=== PATIENT | female | born 1990 | race Caucasian/White ===

== ENCOUNTER → 2019-12-14 08:29 | Outpatient (CLI) | payer OTHER, SELFPAY ==
[2019-12-14 08:58] LABS: Hematocrit 41.8 % (36-46); Hemoglobin 14.4 g/dL (12.0-16.0); Mean Corpuscular HGB Conc 34.5 % (30-36); Mean Corpuscular Hemoglobin 31.3 PG (26-34); Mean Corpuscular Volume 90.7 fL (80-100); Platelet Count 224 X10^3/uL (150-400); Red Cell Distribution Width 12.7 % (11.6-14.8); White Blood Cell Count 4.5 X10^3/uL (4.5-11.0)
[2019-12-14 09:15] LABS: Alanine Aminotransferase 21 IU/L (<35); Albumin 4.6 g/dL (3.5-5.0); Albumin Globulin Ratio 1.4 (1.0-2.8); Alkaline Phosphatase 81 U/L (38-126); Aspartate Aminotransferase 36 IU/L (14-36); BUN Creatinine Ratio 15.8 (6-22); Bilirubin Total 0.7 mg/dL (0.2-1.3); Blood Urea Nitrogen 9 mg/dL (7-17); Calcium 9.6 mg/dL (8.4-10.2); Carbon Dioxide 26 mmol/L (22-32); Chloride 102 mmol/L (98-107); Cholesterol 168 mg/dL (140-199); Estimated Glomerular Filt Rate > 60.0 mL/min (>60); Globulin 3.4 g/dL (1.7-4.1); Glucose 90 mg/dL (70-100); HDL Cholesterol 54 mg/dL (40-60); HEMOLYSIS < 15 (0-50); LDL Cholesterol Calculated 97 mg/dL (<100); Potassium 4.2 mmol/L (3.4-5.1); Sodium 136 mmol/L (137-145); Triglycerides 84 mg/dL (35-150)
[2019-12-14 10:16] LABS: TSH w/ Reflex to FT4 3.65 uIU/mL (0.47-4.68)
[2019-12-14 16:30] LABS: Rubella Antibody IgG 36.9 IU/mL (>15)
[2019-12-15 08:36] LABS: Varicella IgG Antibody 726 index (Immune >165)
== END ==
PROVIDERS: Obstetrics & Gynecology; PCP Nurse Practitioner Family; Referring Provider Nurse Practitioner Family; Visit Provider Nurse Practitioner Family
DX: Z00.00 Encounter for general adult medical examination without abnormal findings (principal); Z13.6 Encounter for screening for cardiovascular disorders; N93.9 Abnormal uterine and vaginal bleeding, unspecified
CPT/HCPCS: 36415; 80053; 80061; 84443; 85027; 86762; 86787

== ENCOUNTER → 2020-02-16 10:29 | Outpatient (CLI) | payer OTHER, SELFPAY | PROVIDERS: PCP Nurse Practitioner Family; Referring Provider Obstetrics & Gynecology; Visit Provider Obstetrics & Gynecology | DX: R53.83 Other fatigue (principal) | CPT/HCPCS: 36415; 84439 ==

== ENCOUNTER → 2020-02-25 10:09 | Outpatient (CLI) | payer OTHER, SELFPAY ==
[2020-02-25 10:30] LABS: RBC Urine None Seen (0-5/HPF); WBC Urine None Seen (0-5/HPF)
[2020-02-25 11:56] LABS: Hematocrit 42.4 % (36-46); Hemoglobin 14.1 g/dL (12.0-16.0); Mean Corpuscular HGB Conc 33.2 % (30-36); Mean Corpuscular Hemoglobin 30.3 PG (26-34); Mean Corpuscular Volume 91.2 fL (80-100); Platelet Count 228 X10^3/uL (150-400); Red Blood Cell Count 4.65 X10^6/uL (4.0-5.2); Red Cell Distribution Width 12.6 % (11.6-14.8); White Blood Cell Count 4.9 X10^3/uL (4.5-11.0)
[2020-02-25 11:59] LABS: Appearance Urine UA CLEAR; Bilirubin Urine UA NEGATIVE (NEGATIVE); Color Urine UA YELLOW; Glucose Urine UA NEGATIVE (Negative); Ketones Urine UA NEGATIVE (NEGATIVE); Leukocyte Esterase Urine UA NEGATIVE (NEGATIVE); Nitrite Urine UA NEGATIVE (Negative); Occult Blood Urine UA NEGATIVE (Negative); Protein Urine UA NEGATIVE (Negative); Specific Gravity Urine UA <=1.005 (1.000-1.035); Urobilinogen Urine UA 0.2 E.U./dL (0.2)
[2020-02-25 12:02] LABS: Pregnancy Test Urine Negative (Negative)
[2020-02-25 12:06] LABS: Bacteria Urine Moderate (10-30); Squamous Epithelial Cell Urine 5-10 /HPF (0-5/HPF)
[2020-02-25 12:07] LABS: Culture Indicated Urine Cult Not Indicated
[2020-02-25 12:36] LABS: HEMOLYSIS < 15 (0-50); Iron 97 ug/dL (37-170)
[2020-02-25 12:39] LABS: BUN Creatinine Ratio 19.6 (6-22); Blood Urea Nitrogen 11 mg/dL (7-17); Calcium 9.5 mg/dL (8.4-10.2); Carbon Dioxide 27 mmol/L (22-32); Chloride 102 mmol/L (98-107); Estimated Glomerular Filt Rate > 60.0 mL/min (>60); Glucose 104 mg/dL (70-100); HEMOLYSIS < 15 (0-50); Potassium 4.3 mmol/L (3.4-5.1); Sodium 137 mmol/L (137-145)
[2020-02-25 12:48] LABS: Percent Iron Saturation 26 % (15-50); Total Iron Binding Capacity 367 ug/dL (265-497); Transferrin 288 mg/dL (206-381)
[2020-02-25 13:15] LABS: Ferritin 16 ng/mL (6-137)
[2020-02-25 13:46] LABS: Folate > 20.0 ng/mL (2.76-20.0); Vitamin B12 731 pg/mL (239-931)
[2020-03-09 11:36] LABS: Urea Breath Test >18YRS Negative
== END ==
PROVIDERS: PCP Nurse Practitioner Family; Referring Provider Nurse Practitioner Family; Visit Provider Nurse Practitioner Family
DX: R10.9 Unspecified abdominal pain (principal); R53.83 Other fatigue; K21.9 Gastro-esophageal reflux disease without esophagitis
CPT/HCPCS: 36415; 80048; 81001; 81025; 82607; 82728; 82746; 83013; 83540; 83550; 85027

== ENCOUNTER → 2020-03-02 10:42 | Outpatient (CLI) | payer OTHER, SELFPAY ==
--- NOTE | 2020-03-02 10:43 | DI.US.S_ITS ---
PROCEDURE: US ABDOMEN COMPLETE INDICATIONS: LEFT LOWER QUADRANT PAIN TECHNIQUE: Real-time scanning was performed of the abdominal and retroperitoneal organs, with image documentation. COMPARISON: None. FINDINGS: Liver: Liver is normal in size and homogeneous in echotexture. Gallbladder: No findings of gallstones or sludge are seen. The gallbladder wall is not thickened, measuring 3 mm or less. No specific pericholecystic fluid is seen. The sonographic Salas sign is negative. Biliary ducts: Intrahepatic bile ducts are non-dilated. Extrahepatic bile duct caliber measures 5 mm. Normal is 6-7 mm or less in diameter, or 10 mm or less post-cholecystectomy. Pancreas: Visualized portions of the pancreas are sonographically normal. Spleen: Spleen is normal in size and homogeneous in echotexture. Kidneys: Right kidney measures 10.1 cm long; left kidney measures 8.6 cm long. 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 Left kidney is small in size. No nephrolithiasis. No solid masses. No mildred hydronephrosis is seen, although bilateral extrarenal pelvis can be seen. Aorta: Visualized aorta is normal in caliber at less than 3 cm. Iliacs: Proximal common iliac arteries are normal in caliber at less than 2.5 cm. IVC: Intrahepatic inferior vena cava is patent. Miscellaneous: No free abdominal fluid. IMPRESSION: No significant abnormality is seen to explain the patient's presenting history. In this female patient with left lower quadrant pain, please consider a follow-up pelvic ultrasound for further evaluation, if clinically appropriate. The left kidney is small in size and is malrotated and ectopic. Bilateral extrarenal pelvis is seen, without mildred hydronephrosis. Dictated by: Bright Pop M.D. on 03/02/2020 at 13:09 Approved by: Bright Pop M.D. on 03/02/2020 at 13:11
== END ==
PROVIDERS: PCP Nurse Practitioner Family; Referring Provider Nurse Practitioner Family; Visit Provider Nurse Practitioner Family
DX: R10.32 Left lower quadrant pain (principal); R53.83 Other fatigue; Q63.2 Ectopic kidney
CPT/HCPCS: 76700

== ENCOUNTER → 2020-03-28 09:45 | Outpatient (CLI) | payer OTHER, SELFPAY ==
--- NOTE | 2020-03-28 09:46 | DI.US.S_ITS ---
PROCEDURE: US PELVIC COMPLETE INDICATIONS: pelvic pain TECHNIQUE: Real-time scanning was performed of the pelvic organs, with image documentation. Additional endovaginal scanning was necessary due to incomplete visualization of the adnexal and endometrial structures by transabdominal scanning. COMPARISON: None. FINDINGS: Transabdominal scanning: Limited scanning through the kidneys shows no hydronephrosis. No pathologic free abdominal or pelvic fluid. Endovaginal scanning: Uterus: Uterus is normal in size at 8.8 x 3.6 x 4.5 cm. The endometrium measures 10 mm in combined thickness. Ovaries: The right ovary measures 2.2 x 1.3 x 2.4 cm. The left ovary measures 3.2 x 1.5 x 1.8 cm. The ovaries have a normal sonographic appearance. No adnexal masses are seen. Normal appearing arterial waveforms are confirmed to each ovary. IMPRESSION: Unremarkable pelvic ultrasound, without findings of ovarian torsion or other significant pelvic abnormality. Dictated by: Bright Pop M.D. on 03/28/2020 at 10:10 Approved by: Bright Pop M.D. on 03/28/2020 at 10:13
== END ==
PROVIDERS: PCP Nurse Practitioner Family; Referring Provider Nurse Practitioner Family; Visit Provider Nurse Practitioner Family
DX: R10.2 Pelvic and perineal pain (principal)
CPT/HCPCS: 76830; 76856

== ENCOUNTER → 2020-06-14 12:19 | Outpatient (CLI) | payer OTHER, SELFPAY | PROVIDERS: PCP Nurse Practitioner Family; Visit Provider Obstetrics & Gynecology | DX: Z11.3 Encounter for screening for infections with a predominantly sexual mode of transmission (principal); Z3A.09 9 weeks gestation of pregnancy | CPT/HCPCS: 87491; 87591 ==

== ENCOUNTER → 2020-06-16 12:10 | Outpatient (CLI) | payer OTHER, SELFPAY ==
[2020-06-16 12:52] LABS: Add Manual Diff / Slide Review NO; Basophils Absolute Auto 0 /uL (0-100); Basophils Percent Auto 0.5 % (0-2); Eosinophils Absolute Auto 0 /uL (0-450); Eosinophils Percent Auto 0.3 % (2-4); Hematocrit 37.7 % (36-46); Hemoglobin 12.6 g/dL (12.0-16.0); Lymphocytes Absolute Auto 1600 /uL (1100-4500); Lymphocytes Percent Auto 15.6 % (25-40); Mean Corpuscular HGB Conc 33.6 % (30-36); Mean Corpuscular Hemoglobin 30.5 PG (26-34); Mean Corpuscular Volume 90.9 fL (80-100); Monocytes Absolute Auto 600 /uL (0-900); Monocytes Percent Auto 5.4 % (3-14); Neutrophils Absolute Auto 8200 /uL (1500-7000); Neutrophils Percent Auto 78.2 % (50-75); Platelet Count 233 X10^3/uL (150-400); Red Blood Cell Count 4.15 X10^6/uL (4.0-5.2); Red Cell Distribution Width 12.9 % (11.6-14.8); White Blood Cell Count 10.4 X10^3/uL (4.5-11.0)
[2020-06-16 13:11] LABS: Appearance Urine UA CLEAR; Bilirubin Urine UA NEGATIVE (NEGATIVE); Color Urine UA YELLOW; Glucose Urine UA NEGATIVE (Negative); Ketones Urine UA NEGATIVE (NEGATIVE); Leukocyte Esterase Urine UA NEGATIVE (NEGATIVE); Nitrite Urine UA NEGATIVE (Negative); Occult Blood Urine UA NEGATIVE (Negative); Protein Urine UA NEGATIVE (Negative); Specific Gravity Urine UA <=1.005 (1.000-1.035); Urobilinogen Urine UA 0.2 E.U./dL (0.2)
[2020-06-16 13:58] LABS: Hepatitis B Surface Antigen NEGATIVE s/c (NEGATIVE); Rubella Antibody IgG 31.3 IU/mL (>15)
[2020-06-16 14:15] LABS: HIV 1 & 2 Ab/Ag 4th Gen Combo NEGATIVE (NEGATIVE); Hep C Virus Ab w/Reflex Quant NEGATIVE s/c (NEGATIVE)
[2020-06-17 06:36] LABS: RPR Screen Non Reactive (Non Reactive)
[2020-06-17 15:51] LABS: Varicella IgG Antibody 654 index (Immune >165)
== END ==
PROVIDERS: PCP Nurse Practitioner Family; Referring Provider Obstetrics & Gynecology; Visit Provider Obstetrics & Gynecology
DX: Z34.01 Encounter for supervision of normal first pregnancy, first trimester (principal)
CPT/HCPCS: 36415; 80055; 81003; 86787; 86803; 86850; 86900; 86901; 87086; 87389

== ENCOUNTER → 2020-08-29 08:58 | Outpatient (CLI) | payer OTHER, SELFPAY | PROVIDERS: PCP Nurse Practitioner Family; Referring Provider Obstetrics & Gynecology; Visit Provider Obstetrics & Gynecology | DX: Z34.02 Encounter for supervision of normal first pregnancy, second trimester (principal); Z3A.19 19 weeks gestation of pregnancy; Z53.8 Procedure and treatment not carried out for other reasons ==

== ENCOUNTER → 2020-09-05 09:19 | Outpatient (CLI) | payer OTHER, SELFPAY ==
--- NOTE | 2020-09-05 09:22 | DI.US.S_ITS ---
PROCEDURE: US OB >= 14 WEEKS FETUS INDICATIONS: ANATOMY OUTSIDE/PRIOR DATING DATA: Last menstrual period (LMP): 04/11/20. LMP-based estimated date of delivery (HARRY): 01/16/21 . First dating scan (date and location): 06/14/[address] Zhao . Estimated date of delivery (HARRY) from first dating scan: 01/16/21, by Dr. Zhao . TECHNIQUE: Real-time scanning was performed of the fetus, with image documentation and biometric measurements. Endovaginal scanning: Not needed COMPARISON: [facility], , OB <= 14 WEEKS FETUS, 06/14/2020, 12:20. FINDINGS: General: A single living intrauterine gestation is present. Presentation: Variable. Placenta: Placental position is anterior , without previa. Amniotic fluid index: 16.4 cm, normal range is 5-24 cm. heart rate: 155 beats per minute. Maternal cervical canal: 6.7 cm long. Normal lower limit is 2.5 cm. biometrics: Biparietal diameter: 4.7 cm, 20 weeks 2 days Head circumference: 17.8 cm, 20 weeks 2 days Abdominal circumference: 17.2 cm, 22 weeks 1 day Femur length: 3.4 cm, 20 weeks 4 days Estimated gestational age from initial scan: 21 weeks 0 days Composite gestational age from present scan: 20 weeks 6 days Estimated weight and percentile: 412 g, 60 a percentile Measurement variability for biometric dating: +/- 7 days from 14 weeks to 15 weeks 6 days gestation, +/- 10 days from 16 weeks to 21 weeks 6 days gestation, +/- 2 weeks from 22 weeks to 27 weeks 6 days gestation, +/- 3 weeks for 28 weeks gestation or later. weight reference: 4500 g or EFW >90/95% is considered macrosomia or large for gestational age. EFW <10% is small for gestational age. EFW 5% or less is considered intra-uterine growth restriction. Anatomic survey: Neuro: Ventricles are non-dilated at less than 10 mm. Cisterna magna is normal at 3-11 mm. Cerebellum is normal in size and morphology. Nuchal skin fold: Normal at less than 6 mm between 14-21 weeks gestational age. Face: Nose and lips, facial profile are normal. Spine: No evidence for spina bifida. Heart: 4-chambered heart is present, with normal ventricular outflow tracts. Diaphragm: Diaphragm is intact. Stomach: Left-sided stomach is present. Kidneys: No hydronephrosis. Normal is less than 5 mm in 2nd trimester, less than 7 mm in 3rd trimester. Cord: 3-vessel cord has orthotopic insertion. Bladder: Normal in size. Extremities: All 4 extremities identified. IMPRESSION: Single living intrauterine gestation with current gestational age estimated to be 20 weeks 6 days with appropriate interval growth from 1st OB ultrasound. The current estimated weight is 60 percentile for gestational age. Delivery date is projected to be centered on 01/16/21, +/-5 days. Dictated by: Andrew Boss M.D. on 09/05/2020 at 14:07 Approved by: Andrew Boss M.D. on 09/05/2020 at 14:12
== END ==
PROVIDERS: PCP Nurse Practitioner Family; Referring Provider Obstetrics & Gynecology; Visit Provider Obstetrics & Gynecology
DX: Z36.89 Encounter for other specified antenatal screening (principal); Z3A.20 20 weeks gestation of pregnancy
CPT/HCPCS: 76811

== ENCOUNTER 2020-10-18 11:59 | Outpatient (CLI) | payer OTHER, SELFPAY | END 2020-10-18 12:50 | disposition home or self-care (01) | LOC: LABOR 12:02 → OB 10-20 07:55 | PROVIDERS: PCP Nurse Practitioner Family; Referring Provider Obstetrics & Gynecology; Visit Provider Obstetrics & Gynecology | DX: O26.892 Other specified pregnancy related conditions, second trimester (principal); W19.XXXA Unspecified fall, initial encounter; Z3A.27 27 weeks gestation of pregnancy | CPT/HCPCS: 59025; G0378; G0379 ==

== ENCOUNTER → 2020-10-19 12:00 | Outpatient (CLI) | payer OTHER, SELFPAY ==
[2020-10-19 14:20] LABS: Hematocrit 31.2 % (36-46); Hemoglobin 10.8 g/dL (12.0-16.0)
[2020-10-19 14:50] LABS: GTT (PREG) 1 Hour PP 50gm Dose 99 mg/dL (76-139)
== END ==
PROVIDERS: PCP Nurse Practitioner Family; Referring Provider Obstetrics & Gynecology; Visit Provider Obstetrics & Gynecology
DX: Z34.02 Encounter for supervision of normal first pregnancy, second trimester (principal); Z3A.26 26 weeks gestation of pregnancy
CPT/HCPCS: 36415; 82950; 85014; 85018; 86850

== ENCOUNTER → 2020-12-22 15:48 | Outpatient (CLI) | payer OTHER, SELFPAY ==
[2020-12-23 12:46] LABS: Strep Grp B PCR NEG for Grp B Strep
== END ==
PROVIDERS: PCP Nurse Practitioner Family; Visit Provider Obstetrics & Gynecology
DX: Z34.03 Encounter for supervision of normal first pregnancy, third trimester (principal); Z3A.36 36 weeks gestation of pregnancy
CPT/HCPCS: 87653

== ENCOUNTER 2020-12-30 12:07 | Outpatient (CLI) | payer OTHER, SELFPAY ==
--- NOTE | 2020-12-30 12:49 | P.TNLD_ITS ---
Visit Information Visit Information Date of evaluation: 12/30/20 Primary OB Provider: Bhavani Zhao Reason for Evaluation: Yes non-stress test Comments/Additional reasons for admission: Patient is a @37+4 presenting for NST for decreased movement, no other obstetric symptoms or risk factors. Had 02/19 BPP in the office. [facility] Medical History (Updated 12/19/20 @ 08:56 by Niya Hinojosa DO) Abdominal pain Abnormal Pap smear of cervix (~2015) Bilateral inguinal hernia Cardiac arrhythmia Episode of syncope (09/2019) Exercise-induced asthma (2013) Fatigue (01/2020) GERD (gastroesophageal reflux disease) History of blood transfusion (~1989) Human papilloma virus Nasal swelling Palpitations Pelvic pain Scoliosis Vaginal spotting Surgical History (Updated 06/08/20 @ 14:12 by Padmini Santoyo, CASSIDY) Anesthesia History of rhinoplasty (~10/2018) Omphalocele Pectus excavatum (~01/2014) Pectus excavatum (~06/2015) S/P bilateral inguinal hernia repair Status post rhinoplasty (~12/2019) Family History (Updated 06/08/20 @ 12:51 by Padmini Santoyo, CASSIDY) Father Heavy smoker Hypertension Hyperlipidemia Mental health problem AA (alcohol abuse) Asperger syndrome Mother Autoimmune disease Hereditary malabsorption of folic acid Mixed connective tissue disease Sister Substance abuse Mental health problem AA (alcohol abuse) Borderline personality disorder Grandfather Hypertension Hyperlipidemia Congestive heart failure Grandmother Celiac disease Diabetes mellitus Brother Depression Substance abuse Asperger syndrome Grandmother No problems noted. Grandfather Myocardial infarction AA (alcohol abuse) Family/Other Liver cancer Problem related to lifestyle Social History marital status: household members: spouse lives independently: Yes pets and animals: No education level: college (BA : taking extra classes online - changing her career) current occupational exposures/hazards: No katheryn/bahai: Scientologist special katheryn needs: No Smoking Status: Never smoker second hand exposure: No alcohol intake: former (pre- : 1-2x/week) substance use type: does not use Evaluation Evaluation Baseline heart rate: 130 Variability: Moderate (11-25) monitor accelerations: Present Monitor Decelerations: Absent Category of Tracing: Reactive Status: Category l Diagnosis, Plan/Disposition Plan/Disposition Plan: Home with labor and antepartum precautions. OB Disposition: home
== END 2020-12-30 12:55 | disposition home or self-care (01) ==
LOC: OB 01-02 08:04
PROVIDERS: PCP Nurse Practitioner Family; Referring Provider Obstetrics & Gynecology; Visit Provider Obstetrics & Gynecology
DX: O36.8130 Decreased fetal movements, third trimester, not applicable or unspecified (principal); Z3A.37 37 weeks gestation of pregnancy
CPT/HCPCS: 59025; G0378; G0379

== ENCOUNTER 2021-01-05 15:05 | Outpatient (CLI) | payer OTHER, SELFPAY | END 2021-01-05 15:50 | disposition home or self-care (01) | LOC: OB 01-09 14:45 | PROVIDERS: PCP Nurse Practitioner Family; Referring Provider Obstetrics & Gynecology; Visit Provider Obstetrics & Gynecology | DX: O26.893 Other specified pregnancy related conditions, third trimester (principal); W18.30XA Fall on same level, unspecified, initial encounter; Z3A.38 38 weeks gestation of pregnancy | CPT/HCPCS: 59025; G0378; G0379 ==

== ENCOUNTER 2021-01-13 15:18 | Outpatient (CLI) | payer OTHER, SELFPAY | END 2021-01-13 16:05 | disposition home or self-care (01) | LOC: LABOR 15:48 → OB 01-17 07:35 | PROVIDERS: PCP Nurse Practitioner Family; Referring Provider Obstetrics & Gynecology; Visit Provider Obstetrics & Gynecology | DX: O48.0 Post-term pregnancy (principal); Z3A.40 40 weeks gestation of pregnancy | CPT/HCPCS: 59025; G0378; G0379 ==

== ENCOUNTER 2021-01-18 08:14 | Outpatient (CLI) | payer OTHER, SELFPAY ==
--- NOTE | 2021-01-18 08:50 | P.TNLD_ITS ---
Visit Information Visit Information Date of evaluation: 01/18/21 Primary OB Provider: Bhavani Zhao On-call OB Provider: Keerthi Santos Reason for Evaluation: Yes non-stress test non-stress test reason: other (Postdates) Vital Signs Vital Signs: Blood pressure 103/77, pulse of 82, temperature 36.6? [facility] Medical History (Updated 01/18/21 @ 08:52 by Keerthi Santos MD) Abdominal pain Abnormal Pap smear of cervix (~2015) Bilateral inguinal hernia Cardiac arrhythmia Episode of syncope (09/2019) Exercise-induced asthma (2013) Fatigue (01/2020) GERD (gastroesophageal reflux disease) History of blood transfusion (~1989) Human papilloma virus Nasal swelling Palpitations Pelvic pain Scoliosis Vaginal spotting Surgical History (Updated 06/08/20 @ 14:12 by Padmini Santoyo, RN) Anesthesia History of rhinoplasty (~10/2018) Omphalocele Pectus excavatum (~01/2014) Pectus excavatum (~06/2015) S/P bilateral inguinal hernia repair Status post rhinoplasty (~12/2019) Family History (Updated 06/08/20 @ 12:51 by Padmini Santoyo, RN) Father Heavy smoker Hypertension Hyperlipidemia Mental health problem AA (alcohol abuse) Asperger syndrome Mother Autoimmune disease Hereditary malabsorption of folic acid Mixed connective tissue disease Sister Substance abuse Mental health problem AA (alcohol abuse) Borderline personality disorder Grandfather Hypertension Hyperlipidemia Congestive heart failure Grandmother Celiac disease Diabetes mellitus Brother Depression Substance abuse Asperger syndrome Grandmother No problems noted. Grandfather Myocardial infarction AA (alcohol abuse) Family/Other Liver cancer Problem related to lifestyle Social History marital status: household members: spouse lives independently: Yes pets and animals: No education level: college (BA : taking extra classes online - changing her career) current occupational exposures/hazards: No katheryn/mu-ism: Worship special katheryn needs: No Smoking Status: Never smoker second hand exposure: No alcohol intake: former (pre- : 1-2x/week) substance use type: does not use Evaluation Evaluation Baseline heart rate: 120 Variability: Moderate (11-25) monitor accelerations: Present Monitor Decelerations: Absent Contraction Frequency (minutes): 7 Uterine Contraction Intensity: Mild Category of Tracing: Reactive Status: Category l Diagnosis, Plan/Disposition Final Diagnosis (1) Post-term , 40-42 weeks of gestation: Status: Acute Plan/Disposition Plan: Reactive nonstress test. Keep routine OB visit OB Disposition: home
== END 2021-01-18 09:00 | disposition home or self-care (01) ==
LOC: OB 01-20 07:49
PROVIDERS: PCP Nurse Practitioner Family; Referring Provider Obstetrics & Gynecology; Visit Provider Obstetrics & Gynecology
DX: O48.0 Post-term pregnancy (principal); Z3A.41 41 weeks gestation of pregnancy
CPT/HCPCS: 59025; G0378; G0379

== ENCOUNTER 2021-01-20 09:28 | Outpatient (CLI) | payer OTHER, SELFPAY ==
--- NOTE | 2021-01-20 10:25 | PM.OBTRLD ---
Visit Information Visit Information Date of evaluation: 01/20/21 Primary OB Provider: Bhavani Zhao Reason for Evaluation: Yes non-stress test Vital Signs Vital Signs: 108/70, 86 PFSH Medical History Abdominal pain Abnormal Pap smear of cervix (~2015) Bilateral inguinal hernia Cardiac arrhythmia Episode of syncope (09/2019) Exercise-induced asthma (2013) Fatigue (01/2020) GERD (gastroesophageal reflux disease) History of blood transfusion (~1989) Human papilloma virus Nasal swelling Palpitations Pelvic pain Scoliosis Vaginal spotting Surgical History Anesthesia History of rhinoplasty (~10/2018) Omphalocele Pectus excavatum (~01/2014) Pectus excavatum (~06/2015) S/P bilateral inguinal hernia repair Status post rhinoplasty (~12/2019) Family History Father Heavy smoker Hypertension Hyperlipidemia Mental health problem AA (alcohol abuse) Asperger syndrome Mother Autoimmune disease Hereditary malabsorption of folic acid Mixed connective tissue disease Sister Substance abuse Mental health problem AA (alcohol abuse) Borderline personality disorder Grandfather Hypertension Hyperlipidemia Congestive heart failure Grandmother Celiac disease Diabetes mellitus Brother Depression Substance abuse Asperger syndrome Grandmother No problems noted. Grandfather Myocardial infarction AA (alcohol abuse) Family/Other Liver cancer Problem related to lifestyle Social History marital status: household members: spouse lives independently: Yes pets and animals: No education level: college (BA : taking extra classes online - changing her career) current occupational exposures/hazards: No katheryn/zoroastrianism: Restorationism special katheryn needs: No Smoking Status: Never smoker second hand exposure: No alcohol intake: former (pre- : 1-2x/week) substance use type: does not use Review of Systems Constitutional Constitutional: Reports system reviewed and no additional complaints, except as documented Evaluation Evaluation Baseline heart rate: 135 Variability: Moderate (11-25) monitor accelerations: Present Monitor Decelerations: Absent Category of Tracing: Reactive Status: Category l Diagnosis, Plan/Disposition Plan/Disposition Plan: routine precautions, scheduled induction next week. OB Disposition: home
== END 2021-01-20 10:29 | disposition home or self-care (01) ==
LOC: LABOR 09:30 → OB 01-23 13:31
PROVIDERS: PCP Nurse Practitioner Family; Referring Provider Obstetrics & Gynecology; Visit Provider Obstetrics & Gynecology
DX: O48.0 Post-term pregnancy (principal); Z3A.41 41 weeks gestation of pregnancy
CPT/HCPCS: 59025; G0378; G0379

== ENCOUNTER 2021-01-23 09:58 | Outpatient (CLI) | payer OTHER, SELFPAY ==
--- NOTE | 2021-01-23 10:28 | PM.OBTRLD ---
Visit Information Visit Information Date of evaluation: 01/23/21 Primary OB Provider: Bhavani Zhao Reason for Evaluation: Yes non-stress test Comments/Additional reasons for admission: This patient is a 30yo @41+0 presenting for postdates NST after an 02/19 BPP in clinic. Patient was scheduled for IOL today which could not be performed due to labor floor staffing. Patient has no obstetrical complaints. Vital Signs Vital Signs: 110/55, HR 70 PFSH Medical History Abdominal pain Abnormal Pap smear of cervix (~2015) Bilateral inguinal hernia Cardiac arrhythmia Episode of syncope (09/2019) Exercise-induced asthma (2013) Fatigue (01/2020) GERD (gastroesophageal reflux disease) History of blood transfusion (~1989) Human papilloma virus Nasal swelling Palpitations Pelvic pain Scoliosis Vaginal spotting Surgical History Anesthesia History of rhinoplasty (~10/2018) Omphalocele Pectus excavatum (~01/2014) Pectus excavatum (~06/2015) S/P bilateral inguinal hernia repair Status post rhinoplasty (~12/2019) Family History Father Heavy smoker Hypertension Hyperlipidemia Mental health problem AA (alcohol abuse) Asperger syndrome Mother Autoimmune disease Hereditary malabsorption of folic acid Mixed connective tissue disease Sister Substance abuse Mental health problem AA (alcohol abuse) Borderline personality disorder Grandfather Hypertension Hyperlipidemia Congestive heart failure Grandmother Celiac disease Diabetes mellitus Brother Depression Substance abuse Asperger syndrome Grandmother No problems noted. Grandfather Myocardial infarction AA (alcohol abuse) Family/Other Liver cancer Problem related to lifestyle Social History marital status: household members: spouse lives independently: Yes pets and animals: No education level: college current occupational exposures/hazards: No katheryn/yarsanism: [employer] special katheryn needs: No Smoking Status: Never smoker second hand exposure: No alcohol intake: former substance use type: does not use Review of Systems Constitutional Constitutional: Reports system reviewed and no additional complaints, except as documented Exam Const General: cooperative, healthy appearing and well groomed Evaluation Evaluation Baseline heart rate: 130 Variability: Moderate (11-25) monitor accelerations: Present Monitor Decelerations: Early (x1) Uterine Contraction Intensity: Mild Category of Tracing: Reactive Status: Category l Diagnosis, Plan/Disposition Plan/Disposition Plan: Reactive NST, home with scheduled precautions. OB Disposition: home
== END 2021-01-23 10:30 | disposition home or self-care (01) ==
LOC: OB 13:32
PROVIDERS: PCP Nurse Practitioner Family; Referring Provider Obstetrics & Gynecology; Visit Provider Obstetrics & Gynecology
DX: O48.0 Post-term pregnancy (principal); Z3A.41 41 weeks gestation of pregnancy
CPT/HCPCS: 59025; G0378; G0379

== ENCOUNTER 2021-01-25 19:51 | Inpatient (IN) | payer OTHER, SELFPAY ==
[2021-01-25] MEDS: DINOPROSTONE VAG (CERVIDIL) 10 MG VAG (20:00)
[2021-01-25 21:18] LABS: Add Manual Diff / Slide Review NO; Basophils Absolute Auto 0 /uL (0-100); Basophils Percent Auto 0.6 % (0-2); Eosinophils Absolute Auto 200 /uL (0-450); Eosinophils Percent Auto 1.8 % (2-4); Hematocrit 40.8 % (36-46); Hemoglobin 13.8 g/dL (12.0-16.0); Lymphocytes Absolute Auto 1600 /uL (1100-4500); Lymphocytes Percent Auto 18.2 % (25-40); Mean Corpuscular Volume 91.2 fL (80-100); Monocytes Absolute Auto 600 /uL (0-900); Monocytes Percent Auto 7.4 % (3-14); Neutrophils Absolute Auto 6300 /uL (1500-7000); Platelet Count 197 X10^3/uL (150-400); Red Blood Cell Count 4.47 X10^6/uL (4.0-5.2); Red Cell Distribution Width 15.7 % (11.6-14.8); White Blood Cell Count 8.7 X10^3/uL (4.5-11.0)
[2021-01-25] MEDS: ZOLPIDEM 5 MG TABLET PO (21:42)
[2021-01-25 21:57] LABS: COVID19 - ADMIT (NP swab/PCR) Negative (Negative)
[2021-01-25 23:58] VITALS: BP 114/74
--- NOTE | 2021-01-26 08:31 | P.HPOB_ITS ---
OB HPI Date/Time Date of admission: 01/25/21 Date Patient Seen: 01/26/21 Time Patient Seen: 08:00 History of Present Condition Chief complaint: postdates induction of labor : 1 Para: 0 Estimated Date of Delivery: 01/16/21 Estimated Gestational Age (weeks): 41 Narrative: Sydney Brown is a 30 year old @41+3 admitted for induction of labor for postdates. The patient reports frequent contractions this AM, though no LOF, no VB, and good movement. No PIH symptoms or other symptoms. Patient has had a complicated by a diagnosis of anxiety, started with BHIP to good effect. Patient has a history of pectus excavatum with several large surgeries, minimal remaining breast tissue and is not planning to breastfeed. Indications Indication for induction OB: post dates History of Present care: good care, initiated at week # (9) and number of visits (16) Dating criteria: LMP confirmed by 1st trimester US Ultrasounds: normal mid trimester US Obstetrical complications: none Medical complications: none Preadmission Labs Blood type: 0 (-) negative (rhogam 11/01/20) -: Antibody screen: negative, GBS status: negative, HIV: negative and RPR/VDLR: negative -: Rubella: immune and Varicella: immune Integrated screen: declined Urine: no growth 1 hr GTT: 99 Evaluation Evaluation Baseline heart rate: 130 Variability: Average (6-10) monitor accelerations: Present Monitor Decelerations: Absent Contraction Frequency (minutes): 6 Category of Tracing: Reactive Status: Category l Cervical dilation (cm): 3 Cervical effacement (%): 80 station: +1 Laboratory results: Laboratory Tests 01/25/21 01/25/21 01/25/21 19:45 19:45 20:00 WBC 8.7 RBC 4.47 Hgb 13.8 Hct 40.8 MCV 91.2 MCH 31.0 MCHC 34.0 RDW 15.7 H Plt Count 197 Neut % (Auto) 72.0 Lymph % (Auto) 18.[address] [place] % (Auto) 7.4 Eos % (Auto) 1.8 L Baso % (Auto) 0.6 Neut # (Auto) 6300 Lymph # (Auto) [address] [place] # (Auto) 600 Eos # (Auto) 200 Baso # (Auto) 0 SARS-CoV-2 (PCR) Negative Blood Type O Negative Antibody Screen Negative [facility] Medical History Abdominal pain Abnormal Pap smear of cervix (~2015) Bilateral inguinal hernia Cardiac arrhythmia Episode of syncope (09/2019) Exercise-induced asthma (2013) Fatigue (01/2020) GERD (gastroesophageal reflux disease) History of blood transfusion (~1989) Human papilloma virus Nasal swelling Palpitations Pelvic pain Scoliosis Vaginal spotting Surgical History Anesthesia History of rhinoplasty (~10/2018) Omphalocele Pectus excavatum (~01/2014) Pectus excavatum (~06/2015) S/P bilateral inguinal hernia repair Status post rhinoplasty (~12/2019) Family History Father Heavy smoker Hypertension Hyperlipidemia Mental health problem AA (alcohol abuse) Asperger syndrome Mother Autoimmune disease Hereditary malabsorption of folic acid Mixed connective tissue disease Sister Substance abuse Mental health problem AA (alcohol abuse) Borderline personality disorder Grandfather Hypertension Hyperlipidemia Congestive heart failure Grandmother Celiac disease Diabetes mellitus Brother Depression Substance abuse Asperger syndrome Grandmother No problems noted. Grandfather Myocardial infarction AA (alcohol abuse) Family/Other Liver cancer Problem related to lifestyle Social History marital status: household members: spouse lives independently: Yes pets and animals: No education level: college current occupational exposures/hazards: No katheryn/hoahaoism: Christian special katheryn needs: No Smoking Status: Never smoker second hand exposure: No alcohol intake: former substance use type: does not use Meds Home Medications and Allergies Home Medications Medication Instructions Recorded Confirmed Type fish oil PO 09/22/19 03/23/20 History magnesium PO 09/22/19 03/23/20 History prenat.vits,yifan,emy-cgrz-knads 1 tab PO DAILY 09/22/19 03/23/20 History albuterol sulfate 90 mcg/actuation 1 inhalation INHALATION Q6H PRN 12/09/19 03/23/20 Rx aerosol inhaler #8.5 gram choline dihydrogen citrate 650 mg mg PO 06/08/20 06/08/20 History tablet Allergies Allergy/AdvReac Type Severity Reaction Status Date / Time latex Allergy Intermediate rash Verified 06/08/20 12:15 Review of Systems Constitutional Constitutional: Reports system reviewed and no additional complaints, except as documented Cardiovascular Cardiovascular: Reports system reviewed and no additional complaints, except as documented Respiratory Respiratory: Reports system reviewed and no additional complaints, except as documented Gastrointestinal Gastrointestinal: Reports system reviewed and no additional complaints, except as documented Genitourinary Genitourinary: Reports system reviewed and no additional complaints, except as documented Neurologic Neurologic: Reports system reviewed and no additional complaints, except as documented Exam Vital Signs (past 8 hours): 106/63, HR 72, Const General: cooperative, healthy appearing, comfortable and well groomed GI Palpation: soft and No tender External Female Exam: normal external appearance Skin General: no rashes or lesions noted Extrem General: normal to inspection Objective Labs Result Diagrams: 01/25/21 19:45 Labs: Laboratory Results - last 24 hr 01/25/21 01/25/21 01/25/21 19:45 19:45 20:00 WBC 8.7 RBC 4.47 Hgb 13.8 Hct 40.8 MCV 91.2 MCH 31.0 MCHC 34.0 RDW 15.7 H Plt Count 197 Neut % (Auto) 72.0 Lymph % (Auto) 18.[address] [place] % (Auto) 7.4 Eos % (Auto) 1.8 L Baso % (Auto) 0.6 Neut # (Auto) 6300 Lymph # (Auto) [address] [place] # (Auto) 600 Eos # (Auto) 200 Baso # (Auto) 0 SARS-CoV-2 (PCR) Negative Blood Type O Negative Antibody Screen Negative Assessment and Plan Assessment and Plan Assessment and Plan narrative: This patient is admitted for induction of labor for postdates. She made significant cervical change with cervidil, with a well applied cervix. Patient strongly desires to avoid pitocin, plan for ambulation, then epidural, then AROM. - cEFM, toco - ambulation encouraged - pitocin if contractions remain irregular after AROM.
--- NOTE | 2021-01-26 09:59 | PM.OBPNLAB ---
Date/Time Date Patient Seen: 01/26/21 Time Patient Seen: 10:00 Pain Control Pain control: epidural Pelvic Exam Dilation (cm): 3 Effacement (%): 80 station: +1 Amniotic membrane status: Ruptured (AROM, thick mec) Contractions Contractions on admission: irregular Monitor mode: External Contraction pattern: Irregular Status status: Category l Heart Rate Baseline: 125 Monitor Accelerations: Present Monitor Decelerations: Absent Monitor Variability: Moderate Assessment and Plan Assessment: induction ongoing Plan: continuous present management Comments: For pitocin augmentation if contractions remain irregular with coupling.
[2021-01-26] MEDS: LACTATED RINGERS 1,000 ML 100 ML IV (11:09)
[2021-01-26] MEDS: OXYTOCIN PREMIX 30 UNIT/500 ML PLAST..BAG IV (11:10)
--- NOTE | 2021-01-26 12:45 | PM.OBPNLAB ---
Date/Time Date Patient Seen: 01/26/21 Time Patient Seen: 12:46 Pain Control Pain control: epidural Comments: feeling intermittent pressure Pelvic Exam Dilation (cm): 5 Effacement (%): 100 station: +1 Amniotic membrane status: Ruptured (AROM, thick mec) Contractions Pitocin rate (mU/min): 4 Contraction frequency (min): 4 Status status: Category ll Heart Rate Baseline: 120 Monitor Accelerations: Present Monitor Decelerations: Early Monitor Variability: Moderate Assessment and Plan Assessment: induction ongoing Plan: continuous present management
--- NOTE | 2021-01-26 13:50 | PM.OBPNLAB ---
Date/Time Date Patient Seen: 01/26/21 Time Patient Seen: 13:51 Pain Control Pain control: epidural Comments: feeling intermittent pressure Pelvic Exam Dilation (cm): 7 Effacement (%): 100 station: +1 Amniotic membrane status: Ruptured (AROM, thick mec) Comments: Attempted IUPC placement. Two catheters placed intrauterine with ease, unable to be made to register after plugging into toco. Returned to monitoring. Contractions Pitocin rate (mU/min): 4 Status status: Category ll Heart Rate Baseline: 125 Monitor Accelerations: Present (+ scalp stim) Monitor Decelerations: Early Monitor Variability: Moderate Comments: Copious audible scalp stim on attempted IUPC placements. Patient made 2cm change in 1 hr, improved FHR tracing with repositioning. Appears to have had early decelerations during period of rapid change, though toco unreliable. Assessment and Plan Assessment: induction ongoing Plan: continuous present management Comments: Discussed return to exernal monitoring.
--- NOTE | 2021-01-26 14:38 | PM.OBPNLAB ---
Date/Time Date Patient Seen: 01/26/21 Time Patient Seen: 14:38 Pain Control Pain control: epidural Pelvic Exam Dilation (cm): 10 Effacement (%): 100 station: +3 Amniotic membrane status: Ruptured (AROM, thick mec) Contractions Monitor mode: External Pitocin rate (mU/min): 4 Contraction frequency (min): 2 Contraction pattern: Irregular Status status: Category l Heart Rate Baseline: 120 Monitor Accelerations: Present Monitor Decelerations: Early Monitor Variability: Moderate Assessment and Plan Assessment: active labor Plan: continuous present management Comments: Beginning 2nd stage presently.
--- NOTE | 2021-01-26 15:44 | PM.OBPRVD ---
Events: Meconium Stained Fluid Labor & Delivery Delivery date: 01/26/21 Intrapartal Events: Acceleration and Deceleration Cervical ripening method: per Cervidil protocol Induction method: AROM Delivery augmentation: pitocin Delivery monitor: external FHT and external uterine Route of delivery: L&D Laceration Description: Perineal - 1st Degree and Labial (1st degree) Delivery repair: vicryl Estimated blood loss (mL): 100 Anesthesia Type: Epidural Narrative: This patient was admitted for induction of labor for postdates. She was induced with cervidil which was removed early due to frequent contractions, and was found to have a favorable cervix. She was induced with AROM for clear fluid, and was augmented with pitocin, max 4 mU/hr. She progressed rapidly through the active phase and after an approximately 30 minute second stage, was delivered of a healthy baby girl. Apgars were 8+9, weight 6#15. A tight nuchal cord was cut and clamped at the perineum, and the shoulders delivered with ease. The placenta delivered spontaneously shortly thereafter, intact and with a 3 vessel cord. 1st degree perineal and bilateral labial lacerations were repaired with 3-0 vicryl to achieve hemostasis. She received pitocin per the usual hemorrhage prevention protocol. There were no other intrapartum or immediate complications. Baby Pretty: gender: Female Presentation: vertex Position: Left Occiput Anterior Placenta delivery description: Spontaneous Cord Vessel Description: 3 Vessels, Nuchal Cord and Tight (cut and clamped at the perineum) weight: 6 lb 15 oz Plan for aftercare: Routine care
[2021-01-26] MEDS: IBUPROFEN 600 MG TABLET PO (20:29)
[2021-01-27] MEDS: IBUPROFEN 600 MG TABLET PO ×2 (02:59→19:38)
--- NOTE | 2021-01-27 09:37 | PM.OBDS.1 ---
Discharge Providers Provider Date of admission: 01/25/21 19:51 Discharge Date: 01/27/21 Primary care physician: DESEAN Gonzalez Discharge provider: Bhavani Zhao MD Summary Hospital Course Date Patient Seen: 01/27/21 Time Patient Seen: 09:37 Diagnoses: vaginal delivery Hospital Course: This patient is a 30-year-old now para 1 admitted for induction of labor for postdates. She was induced with Cervidil, AROM, and Pitocin. She progressed through the active stage of labor rapidly, after a 30 minute 2nd stage, was delivered of a healthy baby girl, weight 6 lb 15 oz, Apgars 8 and 9. A tight nuchal cord was reduced at the perineum and first-degree perineal and labial lacerations were repaired with 3-0 Vicryl. Her course was uncomplicated, and she was discharged on day 1 with routine precautions and follow-up. Peripartum Data Infant Delivery Method: Natural Vaginal Laceration Description: Perineal - 1st Degree and Labial Procedures: spontaneous vaginal delivery complications: none [place] Pretty: Gender: Female Disposition of : home Discharge Diagnosis (1) Vaginal delivery: Status: Acute Status at Discharge Cognitive/behavioral status at discharge: oriented Functional status at discharge: independent ambulation Overall status at discharge: patient is progressing back to baseline Time Spent with Patient Time attestation: Total time spent providing and/or coordinating discharge services: Objective Labs Result Diagrams: 01/25/21 19:45 Exam Vital Signs (past 8 hours): 121/63, HR 93 Narrative Exam Narrative: Patient is recovering well, resting in bed. Reports good pain control, moderate lochia, ambulating, voiding, no PIH symptoms, no other symptoms or concerns. Const General: cooperative, healthy appearing, comfortable and well groomed Resp Effort & Inspection: normal respiratory effort Auscultation: clear to auscultation bilaterally Cardio Rate: regular rate Rhythm: regular rhythm GI Inspection: other (Fundus firm, well below U) Palpation: soft and No tender Skin General: no rashes or lesions noted Extrem General: normal to inspection Discharge Plan Discharge Plan Patient Disposition: Home Discharge orders & Medications Prescriptions: Continued albuterol sulfate 90 mcg/actuation HFA aerosol inhaler 1 inhalation INHALATION Q6H PRN (Reason: shortness of breath or wheezing) Qty: 8.5 RF: 2 prenat.vits,yifan,abd-zzcd-[id number] Tablet 1 tab PO DAILY RF: 0 magnesium PO RF: 0 fish oil PO RF: 0 choline dihydrogen citrate 650 mg tablet PO RF: 0 Follow up/Referrals: Bhavani Zhao MD [Physician] - 6 Weeks ( check) Diet/Activity/Treatments Diet: Regular Activity: Nothing in the vagina for 6 weeks. Avoid lifting more than 10-15 pounds for 6 weeks. If you have increasing bleeding, fevers, chills, nausea, vomiting, headaches, visual changes, pain, or any other symptoms or concerns, call or come to the emergency department. Visit Report/Discharge Packet Instructions: DI for Labor and Delivery, Vaginal Discharge Data Primary Care Provider: Adriel Hinton
[2021-01-27] MEDS: PRENATAL VIT,CALC/IRON/FOLIC 1 TABLET 1 TAB PO (09:38)
[2021-01-27 19:48] VITALS: BP 101/68; PULSE 83; RESP 16; TEMP 36.5
[2021-01-27] MEDS: DERMOPLAST SPRAY 20% 60 ML 1 SPRAY TOP (20:32)
== END 2021-01-27 20:45 | disposition home or self-care (01) | DRG 807 ==
PROVIDERS: Admitting Provider Obstetrics & Gynecology; PCP Nurse Practitioner Family; Referring Provider Obstetrics & Gynecology; Visit Provider Obstetrics & Gynecology
DX: O48.0 Post-term pregnancy (principal); Z37.0 Single live birth; Z3A.41 41 weeks gestation of pregnancy; O70.0 First degree perineal laceration during delivery; O77.0 Labor and delivery complicated by meconium in amniotic fluid; O69.81X0 Labor and delivery complicated by cord around neck, without compression, not applicable or unspecified; O99.344 Other mental disorders complicating childbirth; F41.9 Anxiety disorder, unspecified; Z20.822 Contact with and (suspected) exposure to COVID-19
CPT/HCPCS: 01967; 36415; 59050; 59200; 59400; 85025; 86850; 86900; 86901; 87635; C9803; G0379; J2590

== ENCOUNTER → 2021-07-17 15:16 | Outpatient (CLI) | payer OTHER, SELFPAY ==
[2021-07-17 19:15] LABS: COVID19 -Nasal RAPID Negative (Negative)
== END ==
PROVIDERS: PCP Nurse Practitioner Family; Referring Provider Physician Assistant; Visit Provider Physician Assistant
DX: Z20.822 Contact with and (suspected) exposure to COVID-19 (principal); R53.83 Other fatigue
CPT/HCPCS: 87635

== ENCOUNTER → 2021-07-21 08:29 | Outpatient (CLI) | payer OTHER, SELFPAY ==
--- NOTE | 2021-07-21 08:30 | DI.RAD.S_ITS ---
PROCEDURE: XR CHEST 2V INDICATIONS: Pain with inspiration bilaterally TECHNIQUE: 2 views of the chest were acquired. COMPARISON: None. FINDINGS: Surgical changes and devices: None. Lungs and pleura: Lungs appear hyperexpanded. No consolidation, pleural effusions or pneumothorax. Mediastinum: Mediastinal contours are normal. Heart size is normal. Bones and chest wall: No suspicious bony abnormalities. Soft tissues appear unremarkable. IMPRESSION: No acute cardiopulmonary abnormality Dictated by: Eugene Parkinson M.D. on 07/21/2021 at 9:23 Approved by: Eugene Parkinson M.D. on 07/21/2021 at 9:24
[2021-07-21 10:24] LABS: Hematocrit 38.6 % (36-46); Mean Corpuscular HGB Conc 33.7 % (30-36); Mean Corpuscular Hemoglobin 29.6 PG (26-34); Mean Corpuscular Volume 87.7 fL (80-100); Platelet Count 294 X10^3/uL (150-400); Red Blood Cell Count 4.41 X10^6/uL (4.0-5.2); Red Cell Distribution Width 12.4 % (11.6-14.8); White Blood Cell Count 7.6 X10^3/uL (4.5-11.0)
[2021-07-21 10:42] LABS: Alanine Aminotransferase 20 IU/L (<35); Albumin 4.4 g/dL (3.5-5.0); Albumin Globulin Ratio 1.3 (1.0-2.8); Alkaline Phosphatase 88 U/L (38-126); Aspartate Aminotransferase 31 IU/L (14-36); BUN Creatinine Ratio 18.3 (6-22); Bilirubin Total 0.6 mg/dL (0.2-1.3); Blood Urea Nitrogen 11 mg/dL (7-17); Calcium 9.4 mg/dL (8.4-10.2); Carbon Dioxide 27 mmol/L (22-32); Chloride 105 mmol/L (98-107); Cholesterol 175 mg/dL (140-199); Estimated Glomerular Filt Rate > 60.0 mL/min (>60); Globulin 3.4 g/dL (1.7-4.1); Glucose 76 mg/dL (70-100); HDL Cholesterol 50 mg/dL (40-60); HEMOLYSIS < 15 (0-50); LDL Cholesterol Calculated 107 mg/dL (<100); Potassium 4.5 mmol/L (3.4-5.1); Sodium 140 mmol/L (137-145); Total Protein 7.8 g/dL (6.3-8.2); Triglycerides 91 mg/dL (35-150)
[2021-07-21 11:12] LABS: TSH w/ Reflex to FT4 1.93 uIU/mL (0.47-4.68)
== END ==
PROVIDERS: PCP Nurse Practitioner Family; Referring Provider Nurse Practitioner; Visit Provider Nurse Practitioner
DX: R07.81 Pleurodynia (principal); F41.9 Anxiety disorder, unspecified; J45.990 Exercise induced bronchospasm; Z00.00 Encounter for general adult medical examination without abnormal findings; Z13.6 Encounter for screening for cardiovascular disorders
CPT/HCPCS: 36415; 71046; 80053; 80061; 84443; 85027

== ENCOUNTER → 2021-09-06 15:38 | Outpatient (CLI) | payer OTHER, SELFPAY ==
[2021-09-06 16:55] LABS: Add Manual Diff / Slide Review NO; Basophils Absolute Auto 100 /uL (0-100); Basophils Percent Auto 0.7 % (0-2); Eosinophils Absolute Auto 100 /uL (0-450); Hemoglobin 12.3 g/dL (12.0-16.0); Lymphocytes Absolute Auto 2100 /uL (1100-4500); Mean Corpuscular HGB Conc 32.3 % (30-36); Mean Corpuscular Hemoglobin 27.5 PG (26-34); Mean Corpuscular Volume 85.1 fL (80-100); Monocytes Absolute Auto 600 /uL (0-900); Monocytes Percent Auto 7.8 % (3-14); Neutrophils Absolute Auto 5100 /uL (1500-7000); Neutrophils Percent Auto 64.5 % (50-75); Platelet Count 322 X10^3/uL (150-400); Red Blood Cell Count 4.46 X10^6/uL (4.0-5.2); Red Cell Distribution Width 13.5 % (11.6-14.8); White Blood Cell Count 7.9 X10^3/uL (4.5-11.0)
[2021-09-06 17:23] LABS: Erythrocyte Sedimentation Rate 7 MM/HR (0-20)
[2021-09-06 17:59] LABS: TSH w/ Reflex to FT4 2.82 uIU/mL (0.47-4.68)
[2021-09-06 18:12] LABS: C-Reactive Protein Quant < 0.5 mg/dL (<1.0)
== END ==
PROVIDERS: PCP Nurse Practitioner Family; Referring Provider Nurse Practitioner Family; Visit Provider Nurse Practitioner Family
DX: R19.7 Diarrhea, unspecified (principal); K92.2 Gastrointestinal hemorrhage, unspecified; R19.5 Other fecal abnormalities
CPT/HCPCS: 36415; 84443; 85025; 85651; 86140

== ENCOUNTER → 2021-09-07 11:24 | Outpatient (CLI) | payer OTHER, SELFPAY ==
[2021-09-09 13:12] LABS: Calprotectin, Stool 92 ug/g (0-120)
== END ==
PROVIDERS: PCP Nurse Practitioner Family; Referring Provider Nurse Practitioner Family; Visit Provider Nurse Practitioner Family
DX: R19.7 Diarrhea, unspecified (principal); K92.2 Gastrointestinal hemorrhage, unspecified; R19.5 Other fecal abnormalities
CPT/HCPCS: 83993; 87045; 87046; 87177; 87899

== ENCOUNTER 2021-09-18 13:41 | Emergency (ER) | payer OTHER, SELFPAY ==
[2021-09-18 13:49] VITALS: BP 131/87; PULSE 63; RESP 16; TEMP 36.1; O2SAT 100; BMI 20.9
--- NOTE | 2021-09-18 13:54 | DI.RAD.S_ITS ---
PROCEDURE: XR CHEST 1V INDICATIONS: chest pain TECHNIQUE: One view of the chest was acquired. COMPARISON: [facility], CR, XR CHEST 2V, 07/21/2021, 8:38. FINDINGS: Surgical changes and devices: None. Lungs and pleura: Lungs are clear. No pleural effusions or pneumothorax. Mediastinum: Mediastinal contours appear normal. Heart size is normal. Bones and chest wall: No suspicious bony lesions. Overlying soft tissues appear unremarkable. IMPRESSION: No acute cardiopulmonary pathology. Dictated by: Sam Ruiz M.D. on 09/18/2021 at 14:41 Approved by: Sam Ruiz M.D. on 09/18/2021 at 14:44
[2021-09-18 14:17] LABS: Add Manual Diff / Slide Review NO; Basophils Absolute Auto 0 /uL (0-100); Basophils Percent Auto 0.6 % (0-2); Eosinophils Absolute Auto 100 /uL (0-450); Eosinophils Percent Auto 1.5 % (2-4); Hematocrit 37.1 % (36-46); Hemoglobin 12.2 g/dL (12.0-16.0); Lymphocytes Absolute Auto 1900 /uL (1100-4500); Lymphocytes Percent Auto 26.4 % (25-40); Mean Corpuscular HGB Conc 32.9 % (30-36); Mean Corpuscular Hemoglobin 27.7 PG (26-34); Mean Corpuscular Volume 84.3 fL (80-100); Monocytes Absolute Auto 500 /uL (0-900); Monocytes Percent Auto 7.2 % (3-14); Neutrophils Absolute Auto 4500 /uL (1500-7000); Neutrophils Percent Auto 64.3 % (50-75); Platelet Count 295 X10^3/uL (150-400); Red Cell Distribution Width 13.8 % (11.6-14.8); White Blood Cell Count 7.1 X10^3/uL (4.5-11.0)
[2021-09-18 14:23] LABS: Prothrombin Time 11.1 SECONDS (10.1-12.7)
[2021-09-18 14:24] VITALS: BP 99/73; PULSE 62; O2SAT 100
[2021-09-18 14:26] LABS: PTT Partial Thromboplastin Tim 32 SECONDS (26.4-36.2)
[2021-09-18 14:29] LABS: Alanine Aminotransferase 25 IU/L (<35); Albumin 4.4 g/dL (3.5-5.0); Albumin Globulin Ratio 1.3 (1.0-2.8); Alkaline Phosphatase 103 U/L (38-126); Aspartate Aminotransferase 37 IU/L (14-36); BUN Creatinine Ratio 18.5 (6-22); Bilirubin Total 0.3 mg/dL (0.2-1.3); Blood Urea Nitrogen 10 mg/dL (7-17); Calcium 8.7 mg/dL (8.4-10.2); Carbon Dioxide 27 mmol/L (22-32); Chloride 103 mmol/L (98-107); Creatine Kinase 97 U/L (30-135); Estimated Glomerular Filt Rate > 60.0 mL/min (>60); Globulin 3.5 g/dL (1.7-4.1); Glucose 88 mg/dL (70-100); HEMOLYSIS < 15 (0-50); Lipase 52 U/L (23-300); Magnesium 2.1 mg/dL (1.6-2.3); Potassium 4.1 mmol/L (3.4-5.1); Sodium 136 mmol/L (137-145); Total Protein 7.9 g/dL (6.3-8.2)
[2021-09-18 14:30] VITALS: PULSE 62; O2SAT 98
[2021-09-18 14:39] LABS: Troponin I < 0.012 ng/mL (0.01-0.034)
[2021-09-18 15:00] VITALS: PULSE 62; O2SAT 99
[2021-09-18 15:06] VITALS: BP 106/62; PULSE 63; O2SAT 100
--- NOTE | 2021-09-18 20:45 | ED_ITS ---
HPI - Chest Pain General Chief Complaint: Chest Pain Stated Complaint: Chest pain Time Seen by Provider: 09/18/21 14:02 History of Present Illness HPI narrative: 31-year-old female presents to the ED with 1 day of substernal chest pain. Patient states she had some congestion chest wall abnormality for which she had surgery. Patient is unsure of details about the abnormality. Patient denies cardiac history. Patient states that she had spontaneous onset of substernal chest pain which feels like a burning. Patient denies fever, chills, shortness of breath, nausea, vomiting, abdominal pain, flank pain, dysuria, lightheadedness, dizziness, syncope. Related Data Home Medications Medication Instructions Recorded Confirmed fish oil PO 09/22/19 03/23/21 magnesium PO 09/22/19 03/23/21 prenat.vits,yifan,reb-jvyb-vbyot 1 tab PO DAILY 09/22/19 03/23/21 choline dihydrogen citrate 650 mg mg PO 06/08/20 03/23/21 tablet Previous Rx's Medication Instructions Recorded albuterol sulfate 90 mcg/actuation 1 inhalation INHALATION Q6H PRN 12/09/19 aerosol inhaler #8.5 gram Allergies Allergy/AdvReac Type Severity Reaction Status Date / Time latex Allergy Intermediate rash Verified 06/08/20 12:15 Review of Systems Review of Systems ROS Unobtainable: All systems reviewed & are unremarkable except as noted in HPI and below Constitutional Constitutional: Denies chills, Denies fatigue, Denies fever(s), Denies frequent falls, Denies lethargy and Denies weakness Eyes Eyes: Denies change in vision, Denies eye discharge, Denies irritation and Denies loss of vision ENT Ears, Nose, Mouth, and Throat: Denies change in voice, Denies dizziness, Denies neck pain, Denies sore throat and Denies throat swelling Cardiovascular Cardiovascular: Reports chest pain, Denies irregular heart rhythm, Denies lightheadedness, Denies palpitations, Denies dyspnea, Denies dyspnea on exertion and Denies orthopnea Respiratory Respiratory: Denies cough, Denies dyspnea, Denies dyspnea on exertion and Denies wheezing Gastrointestinal Gastrointestinal: Denies abdominal pain, Denies change in bowel habits, Denies diarrhea, Denies nausea and Denies vomiting Genitourinary Genitourinary: Denies hematuria, Denies flank pain, Denies urinary incontinence and Denies urinary urgency Musculoskeletal Musculoskeletal: Denies back pain, Denies muscle weakness, Denies neck pain, Denies numbness and Denies tingling Integumentary/Breasts Skin/Breast: Denies pruritus, Denies erythema, Denies rash and Denies wounds Neurologic Neurologic: Denies behavioral changes, Denies confusion, Denies dizziness, Denies frequent falls, Denies loss of vision, Denies numbness, Denies tingling and Denies weakness Psychiatric Psychiatric: Denies anxiety, Denies behavioral changes, Denies confusion, Denies depression, Denies homicidal ideation and Denies suicidal ideation Endocrine Endocrine: Denies fatigue, Denies flushing and Denies palpitations Hematologic/Lymphatic Hematologic/Lymphatic: Denies easy bruising Allergic/Immunologic Allergic/Immunologic: Denies urticaria, Denies throat swelling and Denies whee zing Patient History Medical History Abdominal pain Abnormal Pap smear of cervix (~2015) Bilateral inguinal hernia Cardiac arrhythmia Episode of syncope (09/2019) Exercise-induced asthma (2013) Fatigue (01/2020) GERD (gastroesophageal reflux disease) GI bleed (07/2021) History of blood transfusion (~1989) Human papilloma virus Intermittent diarrhea Mucus in stool Nasal swelling Palpitations Pelvic pain Scoliosis Vaginal spotting Surgical History Anesthesia History of rhinoplasty (~10/2018) Omphalocele Pectus excavatum (~01/2014) Pectus excavatum (~06/2015) S/P bilateral inguinal hernia repair Status post rhinoplasty (~12/2019) Family History Father Heavy smoker Hypertension Hyperlipidemia Mental health problem AA (alcohol abuse) Asperger syndrome Mother Autoimmune disease Hereditary malabsorption of folic acid Mixed connective tissue disease Sister Substance abuse Mental health problem AA (alcohol abuse) Borderline personality disorder Grandfather Hypertension Hyperlipidemia Congestive heart failure Grandmother Celiac disease Diabetes mellitus Brother Depression Substance abuse Asperger syndrome Grandmother No problems noted. Grandfather Myocardial infarction AA (alcohol abuse) Family/Other Liver cancer Problem related to lifestyle Social History marital status: household members: spouse lives independently: Yes pets and animals: No education level: college current occupational exposures/hazards: No katheryn/jainism: Buddhism special katheryn needs: No Smoking Status: Never smoker second hand exposure: No alcohol intake: former substance use type: does not use Smoking Status: Never smoker Exam Initial Vital Signs Initial Vital Signs: Vital Signs Temperature 97.0 F L 09/18/21 13:49 Pulse Rate 63 09/18/21 13:49 Respiratory Rate 16 09/18/21 13:49 Blood Pressure 131/87 09/18/21 13:49 Pulse Oximetry 100 09/18/21 13:49 Const General: cooperative, healthy appearing and comfortable HENMT Head: normal to inspection Eyes General: appearance normal, both eyes and all related structures Neck Neck: normal visual inspection Chest Chest: normal inspection of the chest Resp Effort & Inspection: normal respiratory effort Auscultation: clear to auscultation bilaterally Cardio Rate: regular rate Rhythm: regular rhythm GI Other: Abdomen is soft, nondistended, nontender to palpation. General: No CVA tenderness Skin General: no rashes or lesions noted Neuro General: patient alert, patient awake and patient oriented x3 Psych Appearance: grossly normal Mental Status: mental status grossly normal Course Orders Ordered: ED Orders 09/18/21 13:49 EKG-12 Lead Stat 09/18/21 13:54 XR chest 1V Stat 09/18/21 14:08 Complete Blood Count AUTO DIFF Stat Comprehensive Metabolic Panel Stat Lipase Stat Magnesium Stat Partial Thromboplastin Time Stat Prothrombin Time INR Stat Troponin & CK Cardiac Panel Stat Vital Signs Vital signs: Vital Signs - 8 hr 09/18/21 13:49 09/18/21 14:24 09/18/21 14:30 Temperature 97.0 F L Pulse Rate 63 62 62 Respiratory Rate 16 Blood Pressure 131/87 99/73 Pulse Oximetry 100 100 98 09/18/21 15:00 09/18/21 15:06 Temperature Pulse Rate 62 63 Respiratory Rate Blood Pressure 106/62 Pulse Oximetry 99 100 MDM - Chest Pain Lab Data Lab results narrative: Labs within normal limits. Result diagrams: 09/18/21 14:08 09/18/21 14:08 Labs: Lab Results 09/18/21 09/18/21 09/18/21 Range/Units 14:08 14:08 14:08 WBC 7.1 (4.5-11.0) X10^3/uL RBC 4.40 (4.0-5.2) X10^6/uL Hgb 12.2 (12.0-16.0) g/dL Hct 37.1 (36-46) % MCV 84.3 (80-100) fL MCH 27.7 (26-34) PG MCHC 32.9 (30-36) % RDW 13.8 (11.6-14.8) % Plt Count 295 (150-400) X10^3/uL Neut % (Auto) 64.3 (50-75) % Lymph % (Auto) 26.4 (25-40) % [place] % (Auto) 7.2 (3-14) % Eos % (Auto) 1.5 L (2-4) % Baso % (Auto) 0.6 (0-2) % Neut # (Auto) 4500 (6100-7584) /uL Lymph # (Auto) 1900 (4186-7495) /uL [place] # (Auto) 500 (0-900) /uL Eos # (Auto) 100 (0-450) /uL Baso # (Auto) 0 (0-100) /uL PT 11.1 (10.1-12.7) SECONDS INR 1.0 (0.9-1.3) APTT 32 (26.4-36.2) SECONDS Sodium 136 L (137-145) mmol/L Potassium 4.1 (3.4-5.1) mmol/L Chloride 103 (98-107) mmol/L Carbon Dioxide 27 (22-32) mmol/L BUN 10 (7-17) mg/dL Creatinine 0.54 (0.52-1.04) mg/dL Estimated GFR > 60.0 (>60) mL/min BUN/Creatinine Ratio 18.5 (6-22) Glucose 88 (70-100) mg/dL Calcium 8.7 (8.4-10.2) mg/dL Magnesium 2.1 (1.6-2.3) mg/dL Total Bilirubin 0.3 (0.2-1.3) mg/dL AST 37 H (14-36) IU/L ALT 25 (<35) IU/L Alkaline Phosphatase 103 (38-126) U/L Total Creatine Kinase 97 (30-135) U/L CK-MB (CK-2) TNP CK-MB (CK-2) Rel Index TNP Troponin I < 0.012 (0.01-0.034) ng/mL Total Protein 7.9 (6.3-8.2) g/dL Albumin 4.4 (3.5-5.0) g/dL Globulin 3.5 (1.7-4.1) g/dL Albumin/Globulin Ratio 1.3 (1.0-2.8) Lipase 52 (23-300) U/L Imaging Data Chest x-ray: Radiologist's Impression: PROCEDURE:? XR CHEST 1V ? INDICATIONS:? chest pain ? TECHNIQUE:? One view of the chest was acquired.? ? COMPARISON:? [facility], , XR CHEST 2V, 07/21/2021, 8:38. ? FINDINGS:? ? Surgical changes and devices:? None.? ? Lungs and pleura:? Lungs are clear.? No pleural effusions or pneumothorax.? ? Mediastinum:? Mediastinal contours appear normal.? Heart size is normal.? ? Bones and chest wall:? No suspicious bony lesions.? Overlying soft tissues samantha ear unremarkable.? ? IMPRESSION:? No acute cardiopulmonary pathology. ? ? Dictated by: Sam Ruiz M.D. on 09/18/2021 at 14:41 ? ? Approved by: Sam Ruiz M.D. on 09/18/2021 at 14:44 ? ECG Data Interpretation: Normal sinus rhythm. Sinus bradycardia at 59 beats per minute. No axis deviation. No acute ST-T changes. [facility] Narrative Medical decision making narrative: 31-year-old female presents to the ED with 1 day of substernal chest pain. Concern for ACS versus GERD versus musculoskeletal sprain/strain. Will order labs, EKG, troponin, chest x-ray. Will reassess. Workup with no acute findings. Discharge patient home with ED return precautions. Patient verbalized understanding. Discharge Plan Departure Patient Disposition: Home Clinical Impression: Chest pain Instructions: DI for Chest Pain Activity Restrictions/Additional Instructions: You were evaluated in the ED today for chest pain. Your labs, chest x-ray, EKG were all within normal limits. It is possible that your symptoms are of musculoskeletal origin. You may take Tylenol or ibuprofen for your symptoms. Return to the ED if you have worsening symptoms including worsening chest pain, shortness of breath. Prescriptions: No Action albuterol sulfate 90 mcg/actuation HFA aerosol inhaler 1 inhalation INHALATION Q6H PRN (Reason: shortness of breath or wheezing) Qty: 8.5 2RF prenat.vits,yifan,yjc-zehe-sbsmm Tablet 1 tab PO DAILY 0RF magnesium PO 0RF fish oil PO 0RF choline dihydrogen citrate 650 mg tablet PO 0RF Referrals: Adriel Hinton ARNP [Primary Care Provider] -
== END 2021-09-18 15:10 | disposition home or self-care (01) ==
PROVIDERS: Emergency Medicine; Emergency Provider Student in an Organized Health Care Education/Training Program; PCP Nurse Practitioner Family
DX: R07.9 Chest pain, unspecified (principal)
CPT/HCPCS: 36415; 71045; 80053; 82550; 83690; 83735; 84484; 85025; 85610; 85730; 93005; 93010; 99284

== ENCOUNTER 2021-10-30 02:26 | Emergency (ER) | payer OTHER, SELFPAY ==
[2021-10-30] VITALS (7 sets, daily range): BP systolic 100–120; BP diastolic 56–72; PULSE 67–84; RESP 13–22; TEMP 36.6; O2SAT 99–100
--- NOTE | 2021-10-30 02:26 | ED.CHESTPAIN ---
HPI - Chest Pain General Chief Complaint: Chest Pain Stated Complaint: Chest pain Time Seen by Provider: 10/30/21 02:31 History of Present Illness HPI narrative: 31-year-old female nonsmoker presents by EMS for evaluation of a severe sharp and stabbing left-sided chest pain but has been present and increasing fashion over the course of the week but significantly worse this morning. She states the pain is 10/10 and worse with a deep breath and motion. She has had this pain before but never quite this bad. She denies any recent injuries. She denies shortness of breath but states that deep breath worsens her pain. She has had no cough nor fever or chills. She has been nauseated but denies any vomiting. She was given fentanyl by EMS EN route, EKG has no ischemic changes Related Data Home Medications Medication Instructions Recorded Confirmed magnesium PO 09/22/19 09/22/21 Previous Rx's Medication Instructions Recorded albuterol sulfate 90 mcg/actuation 1 inh INHALATION Q6H PRN #8.5 gram 09/22/21 aerosol inhaler hydroxyzine HCl 10 mg tablet 10 mg PO BEDTIME PRN #30 tab 09/22/21 cyclobenzaprine 10 mg tablet 10 mg PO TID PRN #14 tab 10/30/21 hydrocodone 5 mg-acetaminophen 325 1 tab PO Q4-6H PRN #10 tab 10/30/21 mg tablet ketorolac 10 mg tablet 10 mg PO Q6H PRN #14 tab 10/30/21 lidocaine 5 % topical patch 1 patch TOP DAILY #15 each 10/30/21 (Lidoderm) Allergies Allergy/AdvReac Type Severity Reaction Status Date / Time latex Allergy Intermediate rash Verified 09/22/21 16:51 Review of Systems Review of Systems Narrative: GENERAL: Denies chills, fatigue, malaise, fever, sweats. HEENT: Denies sinus pain, ear pain, sore throat, difficulty swallowing, dizziness. RESPIRATORY: Denies dyspnea, cough, wheezing, hemoptysis, sputum. CARDIOVASCULAR: See HPI GASTROINTESTINAL: Denies nausea, vomiting, abdominal pain, diarrhea, constipation, melena. : Denies dysuria, frequency, incontinence, hematuria, urinary retention. MUSCULOSKELETAL: denies weakness, joint pain, or bony pain SKIN: Denies rash, skin lesions, or other NEUROLOGIC: Denies weakness, headache, numbness, change in speech, confusion, seizures, incoordination. PSYCHIATRIC: No concerning psychosocial issues. 12 point review of systems is negative except for those stated above Patient History Medical History Abdominal pain Abnormal Pap smear of cervix (~2015) Bilateral inguinal hernia Cardiac arrhythmia Episode of syncope (09/2019) Exercise-induced asthma (2013) Fatigue (01/2020) GERD (gastroesophageal reflux disease) GI bleed (07/2021) History of blood transfusion (~1989) Human papilloma virus Intermittent diarrhea Mucus in stool Nasal swelling Palpitations Pelvic pain Scoliosis Vaginal spotting Surgical History Anesthesia History of rhinoplasty (~10/2018) Omphalocele Pectus excavatum (~01/2014) Pectus excavatum (~06/2015) S/P bilateral inguinal hernia repair Status post rhinoplasty (~12/2019) Family History Father Heavy smoker Hypertension Hyperlipidemia Mental health problem AA (alcohol abuse) Asperger syndrome Mother Autoimmune disease Hereditary malabsorption of folic acid Mixed connective tissue disease Sister Substance abuse Mental health problem AA (alcohol abuse) Borderline personality disorder Grandfather Hypertension Hyperlipidemia Congestive heart failure Grandmother Celiac disease Diabetes mellitus Brother Depression Substance abuse Asperger syndrome Grandmother No problems noted. Grandfather Myocardial infarction AA (alcohol abuse) Family/Other Liver cancer Problem related to lifestyle Social History marital status: household members: spouse lives independently: Yes pets and animals: No education level: college current occupational exposures/hazards: No katheryn/anabaptism: Hindu special katheryn needs: No Smoking Status: Never smoker second hand exposure: No alcohol intake: former substance use type: does not use Smoking Status: Never smoker Exam Narrative Exam Narrative: GENERAL: 31 year old patient appears stated age. Well-developed patient, in obvious pain, tearful, holding her left arm up in a position of comfort HEAD: Atraumatic. Normocephalic. EYES: Pupils equal round and reactive. Extraocular motions intact. No scleral icterus. No injection or drainage. ENT: Nose without bleeding, purulent drainage. Throat without erythema, tonsillar hypertrophy or exudate. Airway patent. NECK: Trachea midline. Non tender CARDIOVASCULAR: Regular rate and rhythm without murmurs, gallops, or rubs. Left anterior chest tender to palpation, no crepitance, swelling, erythema or fluctuance RESPIRATORY: Clear to auscultation. Breath sounds equal bilaterally. No wheezes, rales, or rhonchi. GASTROINTESTINAL: Abdomen soft, non-tender, nondistended. EXTREMITIES: No edema or joint tenderness. BACK: Nontender without deformity or crepitance. No flank tenderness. NEURO: AOx3. SKIN: No rash or erythema of visible areas Initial Vital Signs Initial Vital Signs: Vital Signs Temperature 98 F 10/30/21 02:32 Pulse Rate 84 10/30/21 02:32 Respiratory Rate 22 10/30/21 02:32 Blood Pressure 118/72 10/30/21 02:32 Course Orders Ordered: ED Orders 10/30/21 02:32 XR chest 1V Stat EKG-12 Lead Stat 10/30/21 03:08 C-Reactive Protein Quant Stat Complete Blood Count AUTO DIFF Stat Comprehensive Metabolic Panel Stat Lipase Stat Magnesium Stat NT-proBNP (BNP-Adult 18+) Stat Troponin & CK Cardiac Panel Stat 10/30/21 03:34 CT angio chest PE protocol Stat Discontinued Medications Hydrocodone Bitart/Acetaminophen (Hydrocodone/Acet 5/325 Prepack) 1 bottle MISC SEEINSTR ONE Stop: 10/30/21 05:46 Ketorolac Tromethamine (Ketorolac 30 Mg/Ml Vial) 15 mg IV NOW ONE Stop: 10/30/21 02:32 Last Admin: 10/30/21 02:46 Dose: 15 mg Documented by: QUINTIN Lidocaine (Lidocaine Patch 1 Each Adh..Patch) 1 each TOP NOW ONE Stop: 10/30/21 05:13 Last Admin: 10/30/21 05:20 Dose: 1 each Documented by: QUINTIN Vital Signs Vital signs: Vital Signs - 8 hr 10/30/21 02:32 10/30/21 03:28 10/30/21 03:30 Temperature 98 F Pulse Rate 84 70 74 Respiratory Rate 22 13 13 Blood Pressure 118/72 100/56 L Pulse Oximetry 100 99 10/30/21 04:00 10/30/21 04:13 10/30/21 04:30 Temperature Pulse Rate 67 79 77 Respiratory Rate 18 13 Blood Pressure 114/57 L 120/64 112/63 Pulse Oximetry 100 100 100 10/30/21 05:00 Temperature Pulse Rate 72 Respiratory Rate 17 Blood Pressure 106/61 Pulse Oximetry 99 MDM - Chest Pain Lab Data Result diagrams: 10/30/21 03:08 10/30/21 03:08 Labs: Lab Results 10/30/21 10/30/21 Range/Units 03:08 03:08 WBC 5.5 (4.5-11.0) X10^3/uL RBC 3.51 L (4.0-5.2) X10^6/uL Hgb 9.3 L (12.0-16.0) g/dL Hct 28.9 L (36-46) % MCV 82.4 (80-100) fL MCH 26.6 (26-34) PG MCHC 32.2 (30-36) % RDW 14.8 (11.6-14.8) % Plt Count 266 (150-400) X10^3/uL Neut % (Auto) 52.7 (50-75) % Lymph % (Auto) 34.0 (25-40) % [place] % (Auto) 9.6 (3-14) % Eos % (Auto) 2.9 (2-4) % Baso % (Auto) 0.8 (0-2) % Neut # (Auto) 2900 (9356-1159) /uL Lymph # (Auto) 1900 (2531-7635) /uL [place] # (Auto) 500 (0-900) /uL Eos # (Auto) 200 (0-450) /uL Baso # (Auto) 0 (0-100) /uL Sodium 139 (137-145) mmol/L Potassium 4.1 (3.4-5.1) mmol/L Chloride 109 H (98-107) mmol/L Carbon Dioxide 25 (22-32) mmol/L BUN 13 (7-17) mg/dL Creatinine 0.63 (0.52-1.04) mg/dL Estimated GFR > 60 (>60) mL/min BUN/Creatinine Ratio 20.6 (6-22) Glucose 99 (70-100) mg/dL Calcium 8.2 L (8.4-10.2) mg/dL Magnesium 2.0 (1.6-2.3) mg/dL Total Bilirubin 0.1 L (0.2-1.3) mg/dL AST 30 (14-36) IU/L ALT 24 (<35) IU/L Alkaline Phosphatase 74 (38-126) U/L Total Creatine Kinase 67 (30-135) U/L CK-MB (CK-2) TNP CK-MB (CK-2) Rel Index TNP Troponin I < 0.012 (0.01-0.034) ng/mL C-Reactive Protein < 0.5 (<1.0) mg/dL NT-Pro-B Natriuret Pep 47 (<125) pg/mL Total Protein 6.3 (6.3-8.2) g/dL Albumin 3.4 L (3.5-5.0) g/dL Globulin 2.9 (1.7-4.1) g/dL Albumin/Globulin Ratio 1.2 (1.0-2.8) Lipase 72 (23-300) U/L Point of Care Testing Test Results Negative Urine Dip Bedside Urine Glucose Negative Bedside Urine Bilirubin - Negative Bedside Urine Ketone - Negative Urine Specific [place] 1.010 Bedside Urine Occult Blood - Negative Bedside Urine pH 7.0 Bedside Urine Protein - Negative Bedside Urine Urobilinogen - Negative Bedside Urine Nitrite - Negative Bedside Urine Leukocytes - Negative Esterase Imaging Data CT scan - chest: Radiologist's Impression: No pulmonary embolism, dissection or aneurysm. Pulmonary nodules measuring up to 6 mm, recommended follow-up in 6-12 months MDM Narrative Medical decision making narrative: Multiple causes of chest pain considered including IL, PE, pneumothorax, pneumonia, aortic dissection, and pleurisy. Patient reports no radiation, no diaphoresis, no provocation with exertion, and no vomiting Patient's symptoms improved over duration of stay with above-stated therapies. CT findings discussed with patient and , including recommended follow-up duration for pulmonary nodules Findings and discharge diagnosis discussed with patient/family followed by verbalization of understanding Return precautions discussed with patient/family whom verbalize understanding. Discharge Plan Departure Patient Disposition: Home Clinical Impression: Atypical chest pain Instructions: DI for Atypical Chest Pain Activity Restrictions/Additional Instructions: *You have been diagnosed with [atypical chest pain. As we discussed your history and physical exam, labs, EKG and imaging are reassuring and there is no evidence of heart attack, blood clot, collapsed lung or other diagnosis that would require a specific or immediate intervention *What to do: *Please continue to take your regular medications as directed. [x] New medication prescriptions sent to your pharmacy: [[facility] in [place] ] [ ] New medication written as a paper prescription [ ] No new medications given *Please follow up with your primary care provider in 2-3 days, call for an appointment. Let them know you were seen in the Emergency Department and that we ask that you be seen in follow up. We will electronically transmit a record of today's note if your PCP is in our system *The Chest CT noted a few small nodules that are likely incidental findings and not related to your pain today, however they cannot be ignored and will need to be followed with a repeat CT in 6-12 months. *If you do not have a primary care provider please contact the [facility] Resource line at [phone]. They will ask some questions about your medical history and help get you set up with a doctor in the community. *Return to Emergency Department if you should have any new, worsening or concerning symptoms, such as [fever greater than 101 F, shaking chills, worsening pain, persistent vomiting or other bothersome symptoms] You have been prescribed a short course of narcotic medications. These are potentially dangerous and addictive medications that should be used carefully. While on these medications you cannot drive or operate heavy machinery. Additionally, you cannot sign legal documents or perform any duties such as this. 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 Please understand that we cannot provide further refills of narcotics or controlled substances through the ED and your pain management will need to be through your Primary Care Provider Prescriptions: New cyclobenzaprine 10 mg tablet 10 mg PO TID PRN (Reason: muscle spasm) Qty: 14 0RF hydrocodone-acetaminophen 5-325 mg tablet 1 tab PO Q4-6H PRN (Reason: pain) Qty: 10 0RF ketorolac 10 mg tablet 10 mg PO Q6H PRN (Reason: pain) Qty: 14 0RF lidocaine [Lidoderm] 5 % adhesive patch,medicated 1 patch TOP DAILY Qty: 15 0RF Rx Instructions: leave on most painful area for 12 hrs No Action magnesium PO 0RF albuterol sulfate 90 mcg/actuation HFA aerosol inhaler 1 inh INHALATION Q6H PRN (Reason: shortness of breath or wheezing) Qty: 8.5 3RF hydroxyzine HCl 10 mg tablet 10 mg PO BEDTIME PRN (Reason: anxiety; insomnia) Qty: 30 3RF Referrals: Adriel Hinton ARNP [Primary Care Provider] - Stand Alone Forms: Work Release Note
--- NOTE | 2021-10-30 02:32 | DI.RAD.S_ITS ---
PROCEDURE: XR CHEST 1V INDICATIONS: severe L sided chest pain TECHNIQUE: One view of the chest was acquired. COMPARISON: None. FINDINGS: Surgical changes and devices: None. Lungs and pleura: Lungs are clear. No pleural effusions or pneumothorax. Mediastinum: Mediastinal contours appear normal. Heart size is normal. Bones and chest wall: No suspicious bony lesions. Overlying soft tissues appear unremarkable. IMPRESSION: No acute cardiopulmonary disease process. Dictated by: Fidelia Hoffman MD, PhD on 10/30/2021 at 7:33 Approved by: Fidelia Hoffman MD, PhD on 10/30/2021 at 7:33
[2021-10-30] MEDS: KETOROLAC 30 MG/ML VIAL 15 MG IV (02:46)
[2021-10-30 03:20] LABS: Add Manual Diff / Slide Review NO; Basophils Absolute Auto 0 /uL (0-100); Basophils Percent Auto 0.8 % (0-2); Eosinophils Absolute Auto 200 /uL (0-450); Eosinophils Percent Auto 2.9 % (2-4); Hematocrit 28.9 % (36-46); Hemoglobin 9.3 g/dL (12.0-16.0); Lymphocytes Absolute Auto 1900 /uL (1100-4500); Mean Corpuscular HGB Conc 32.2 % (30-36); Mean Corpuscular Hemoglobin 26.6 PG (26-34); Mean Corpuscular Volume 82.4 fL (80-100); Monocytes Absolute Auto 500 /uL (0-900); Monocytes Percent Auto 9.6 % (3-14); Neutrophils Absolute Auto 2900 /uL (1500-7000); Neutrophils Percent Auto 52.7 % (50-75); Platelet Count 266 X10^3/uL (150-400); Red Blood Cell Count 3.51 X10^6/uL (4.0-5.2); Red Cell Distribution Width 14.8 % (11.6-14.8); White Blood Cell Count 5.5 X10^3/uL (4.5-11.0)
[2021-10-30 03:32] LABS: Alanine Aminotransferase 24 IU/L (<35); Albumin 3.4 g/dL (3.5-5.0); Albumin Globulin Ratio 1.2 (1.0-2.8); Alkaline Phosphatase 74 U/L (38-126); Aspartate Aminotransferase 30 IU/L (14-36); BUN Creatinine Ratio 20.6 (6-22); Bilirubin Total 0.1 mg/dL (0.2-1.3); Blood Urea Nitrogen 13 mg/dL (7-17); C-Reactive Protein Quant < 0.5 mg/dL (<1.0); Calcium 8.2 mg/dL (8.4-10.2); Carbon Dioxide 25 mmol/L (22-32); Chloride 109 mmol/L (98-107); Creatine Kinase 67 U/L (30-135); Estimated Glomerular Filt Rate > 60 mL/min (>60); Globulin 2.9 g/dL (1.7-4.1); Glucose 99 mg/dL (70-100); HEMOLYSIS < 15 (0-50); Lipase 72 U/L (23-300); Potassium 4.1 mmol/L (3.4-5.1); Sodium 139 mmol/L (137-145); Total Protein 6.3 g/dL (6.3-8.2)
--- NOTE | 2021-10-30 03:34 | DI.CT.S_ITS ---
PROCEDURE: CT ANGIO CHEST PE PROTOCOL INDICATIONS: severe left chest pain, prior chest surgery TECHNIQUE: After the administration of intravenous contrast, 2 mm thick sections acquired from the pulmonary apices to the posterior costophrenic angles. 3-dimensional maximum intensity projection (MIP) coronal and sagittal reformats were then acquired through the thorax. For radiation dose reduction, the following was used: automated exposure control, adjustment of mA and/or kV according to patient size. COMPARISON: [facility], CR, XR CHEST 2V, 07/21/2021, 8:38. [facility], CR, XR CHEST 1V, 09/18/2021, 14:14. [facility], US, US ABDOMEN COMPLETE, 03/02/2020, 10:56. [facility], CR, XR CHEST 1V, 10/30/2021, 2:45. FINDINGS: Image quality: Excellent. Pulmonary arteries: Pulmonary arteries are normal in size, and demonstrate no intraluminal filling defects to suggest central pulmonary embolism. Lungs and pleura: There is a 0.6 cm ground-glass nodule in the left lower lobe posterior medially (series 5, image 197). A 0.6 cm subpleural density in the left lower lobe is most likely caused round atelectasis there is a 2 mm nodules along the left major fissure (series 5, image 65). A 2 mm nodule is noted in right upper lobe (series 5 image 65). No pleural effusions or pneumothorax. Central and peripheral airways are patent. Mediastinum: Heart size is normal, without pericardial effusion. There is a 1.5 x 3.2 cm pericardial cyst just below the heart and anterior to liver (series 4, image 113). There is masslike structure posterior to the right atrium and inferior vena cava measuring 4.1 x 3.7 by 4.9 cm. It appears to be part of the liver, herniating through the diaphragm hiatus. No mediastinal or hilar adenopathy. Thoracic aorta is normal in caliber and enhancement. Esophagus is normal in caliber, without hiatal hernia. Bones and chest wall: No suspicious bony lesions. Ribs and thoracic spine appear intact throughout. Thyroid gland is normal. No axillary or supraclavicular adenopathy. Abdomen: Visualized upper abdominal solid organs appear normal in the early arterial phase of enhancement. IMPRESSION: 1. No evidence for pulmonary embolism. 2. 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 3. Small lung nodules are noted. A follow-up CT is suggested in 12 months. Please see enclosed follow-up recommendation. 4. There is masslike structure posterior to the right atrium and inferior vena cava measuring 4.1 x 3.7 x 4.9 cm. It appears to be part of the liver, herniating through the diaphragm hiatus. There is mild mass effect to adjacent esophagus. Reportedly, the patient had prior chest surgery. Please correlate with prior imaging exams. No significant discrepancy with the shift coordinator radiology preliminary report. Fleischner Society criteria for SOLID lung nodule followup. Nodule size (mm)Low-risk patientHigh-risk patient?4No follow-up neededFollow-up at 12 mo; if no change, no further follow-up>1-3Nmhmou-ym CT at 12 mo; if no change, no further follow-up needed.Initial follow-up CT at 6-12 mo, then 18-24 mo if no change. >6-8Initial follow-up CT at 6-12 mo, then 18-24 mo if no change. Initial follow-up CT at 3-6 mo, then 9-12 mo and 24 mo if no change. >8Follow-up CT at 3, 9, 24 mo. Or PET and/or biopsy.Same as for low-risk pts. Fleischner Society criteria for SUB-SOLID lung nodule followup. Solitary pure ground-glass nodules5 mm or lessNo followup needed. >5 mm3 mo follow-up CT to confirm persistence. Then annual CT for 3 years. Part-solid nodules3 mo follow-up CT to confirm persistence. If persistent with solid component <5 mm, annual CT for at least 3 years. If solid component is 5 mm or more, biopsy or surgical resection. Consider PET-CT for lesions > 10 mm. Multiple sub-solid nodulesPure ground glass nodules [address] at 2 and 4 years. Pure ground glass nodules >5 mm without dominant lesion. [address] to confirm persistence, then annual followup CT for at least 3 years. Dominant nodule(s) with part-solid or solid component. [address] to confirm persistence. If persistent, consider biopsy or surgical resection, tonya if lesions have >5 mm solid component. Dictated by: Camelia Ramos M.D. on 10/30/2021 at 8:05 Approved by: Camelia Ramos M.D. on 10/30/2021 at 9:45
[2021-10-30 03:41] LABS: NT-proBNP (BNP-Adult 18+) 47 pg/mL (<125); Troponin I < 0.012 ng/mL (0.01-0.034)
[2021-10-30] MEDS: LIDOCAINE PATCH 1 EACH ADH..PATCH TOP (05:20)
[2021-10-30] MEDS: HYDROCODONE/ACET 5/325 PREPACK 1 BOTTLE MISC (06:04)
== END 2021-10-30 06:06 | disposition home or self-care (01) ==
PROVIDERS: Emergency Provider Emergency Medicine; PCP Nurse Practitioner Family
DX: R07.89 Other chest pain (principal)
CPT/HCPCS: 36415; 71045; 71275; 80053; 81003; 81025; 82550; 83690; 83735; 83880; 84484; 85025; 86140; 93005; 96374; 99284; J1885; Q9967

== ENCOUNTER → 2021-11-01 15:53 | Outpatient (CLI) | payer OTHER, SELFPAY ==
[2021-11-01 16:39] LABS: Add Manual Diff / Slide Review NO; Basophils Absolute Auto 0 /uL (0-100); Basophils Percent Auto 0.5 % (0-2); Eosinophils Absolute Auto 0 /uL (0-450); Eosinophils Percent Auto 0.1 % (2-4); Hematocrit 31.1 % (36-46); Hemoglobin 10.5 g/dL (12.0-16.0); Lymphocytes Absolute Auto 1600 /uL (1100-4500); Lymphocytes Percent Auto 20.6 % (25-40); Mean Corpuscular HGB Conc 33.6 % (30-36); Mean Corpuscular Hemoglobin 26.9 PG (26-34); Mean Corpuscular Volume 80.1 fL (80-100); Monocytes Absolute Auto 800 /uL (0-900); Monocytes Percent Auto 9.7 % (3-14); Neutrophils Absolute Auto 5400 /uL (1500-7000); Neutrophils Percent Auto 69.1 % (50-75); Platelet Count 371 X10^3/uL (150-400); Red Blood Cell Count 3.88 X10^6/uL (4.0-5.2); Red Cell Distribution Width 14.7 % (11.6-14.8); White Blood Cell Count 7.8 X10^3/uL (4.5-11.0)
[2021-11-01 16:58] LABS: HEMOLYSIS < 15 (0-50); Iron 38 ug/dL (37-170)
[2021-11-01 17:11] LABS: Percent Iron Saturation 8 % (15-50); Total Iron Binding Capacity 458 ug/dL (265-497); Transferrin 381 mg/dL (206-381)
== END ==
PROVIDERS: PCP Nurse Practitioner; Referring Provider Nurse Practitioner; Visit Provider Nurse Practitioner
DX: D64.9 Anemia, unspecified (principal)
CPT/HCPCS: 36415; 83540; 83550; 85025

== ENCOUNTER → 2021-11-02 11:56 | Outpatient (CLI) | payer OTHER, SELFPAY ==
[2021-11-02 12:32] LABS: Occult Blood 1 Negative (Negative); Occult Blood 2 Positive (Negative); Occult Blood 3 Negative (Negative)
== END ==
PROVIDERS: PCP Nurse Practitioner; Referring Provider Nurse Practitioner; Visit Provider Nurse Practitioner
DX: D64.9 Anemia, unspecified (principal)
CPT/HCPCS: 82270

== ENCOUNTER → 2021-11-09 08:43 | Outpatient (CLI) | payer OTHER, SELFPAY ==
--- NOTE | 2021-11-09 08:44 | DI.MRI.S_ITS ---
PROCEDURE: MR ABDOMEN WO/W CON INDICATIONS: rule out malignancy - Hepatic Protocol TECHNIQUE: Coronal HASTE, axial 2D FLASH in- and [id number]; axial breath-hold T2 FSE. Dynamic axial VIBE during the administration of contrast; post-contrast coronal VIBE or 2D FLASH with fat saturation from the hepatic dome to the iliac crests. Optional diffusion weighted imaging and ADC may be performed. COMPARISON: [facility], CT, CT ANGIO CHEST PE PROTOCOL, 10/30/2021, 4:10. FINDINGS: Image quality: Excellent. Lung bases: No basal pleural effusions. Heart size is normal. Solid organs: Liver is enlarged. No focal lesion. No restricted diffusion. There is herniation of liver at the diaphragmatic hiatus. Gallbladder is not distended. No stones identified. Biliary system is non dilated. Pancreas is normal in morphology. Spleen is normal in size and enhancement. No adrenal nodules. Both kidneys demonstrate normal size and enhancement, without hydronephrosis. Nodes and vessels: No retroperitoneal or mesenteric adenopathy by size criteria. No abdominal aortic aneurysm. The suprarenal IVC and terminal IVC are prominent size. This results in the appearance of the pericardiac cyst which is the confluence of the IVC and the right atrium. The intrahepatic veins are patent. The portal vein is patent. Bowel and peritoneum: Unenhanced bowel loops are normal in caliber. No free fluid. Bones and soft tissues: No ventral hernias. Bone marrow is normal in overall signal. IMPRESSION: 1. No mass or suspicious enhancement. 2. Hepatomegaly. Herniation of a small portion of the liver at the diaphragmatic hiatus. 3. Prominent IVC right atrial confluence. Dictated by: Casey Steiner M.D. on 11/09/2021 at 12:13 Approved by: Casey Steiner M.D. on 11/09/2021 at 12:33
== END ==
PROVIDERS: PCP Nurse Practitioner; Referring Provider Nurse Practitioner; Visit Provider Nurse Practitioner
DX: R16.0 Hepatomegaly, not elsewhere classified (principal); R07.89 Other chest pain
CPT/HCPCS: 74183; A9579

== ENCOUNTER → 2021-12-31 14:20 | Outpatient (CLI) | payer OTHER, SELFPAY | PROVIDERS: PCP Nurse Practitioner; Visit Provider Nurse Practitioner Family | DX: R10.2 Pelvic and perineal pain (principal) | CPT/HCPCS: 87210 ==

== ENCOUNTER 2021-12-31 14:37 | Emergency (ER) | payer OTHER, SELFPAY ==
[2021-12-31 15:00] VITALS: BP 105/71; PULSE 105; RESP 18; TEMP 36.5; O2SAT 98; BMI 20.5
--- NOTE | 2021-12-31 16:06 | ED_ITS ---
HPI - General Adult <Shelli Sanabria MD - Last Filed: 01/01/22 18:34> General Chief complaint: Abdominal Pain Stated complaint: Possible ovarian cyst, also poss med reaction Time Seen by Provider: 12/31/21 16:05 Source: patient Mode of arrival: Family Vehicle History of Present Illness HPI narrative: 31-year-old woman with history of anxiety and depression started on paroxetine 10 mg daily 10 days ago who presents with left lower quadrant pain that is been increasingly worse over the last 3-4 days with pain radiating down the anterior portion of her left thigh and into her lower back. She is concerned that it is an ovarian cyst. She culture OBGYN on Saturday and an ultrasound is scheduled for some point in the future. She has been taking ibuprofen and Tylenol alternating every 3 hours in using a heating pad but pain continues to increase. Regarding her recent Paxil prescription she is concerned this may be contributing. She read through the patient information and is worrying that the potential bleeding complication is causing the single episode of bloody know she had after blowing her nose today. She also notes that the last 2 nights she has had significant sweats that ?smell weird? and she is worried this is a sign of significant pathology. She describes no fevers dysuria constipation vaginal discharge. She is not based on urine test done in the walking clinic today. She describes no chest pain palpitations or cough. She is extraordinarily anxious and appears to be in a moderate amount of pain Related Data Home Medications Medication Instructions Recorded Confirmed ferrous sulfate, dried 159 mg (45 159 mg PO BID 11/02/21 12/31/21 mg iron) tablet,extended release Previous Rx's Medication Instructions Recorded albuterol sulfate 90 mcg/actuation 1 inh inhalation Q6H PRN shortness 09/22/21 aerosol inhaler of breath or wheezing #8.5 grams lidocaine 5 % topical patch 1 patch topical DAILY #15 ea 10/30/21 (Lidoderm) hydroxyzine pamoate 25 mg capsule 25 mg PO QID #90 caps 11/02/21 paroxetine HCl 10 mg tablet (Paxil) 10 mg PO DAILY #60 tabs 12/18/21 sumatriptan succinate 25 mg tablet See Rx Instructions PO .COMPLEX 12/29/21 (Imitrex) #30 tabs hydromorphone 2 mg tablet 2 mg PO Q4H PRN pain #30 tabs 12/31/21 (Dilaudid) hydromorphone 2 mg tablet 2 mg PO Q4H PRN pain #30 tabs 12/31/21 (Dilaudid) Allergies Allergy/AdvReac Type Severity Reaction Status Date / Time latex Allergy Intermediate rash Verified 12/31/21 14:59 Review of Systems <Shelli Sanabria MD - Last Filed: 01/01/22 18:34> Review of Systems Narrative: Remainder of complete review of systems is otherwise unremarkable except for that included in the HPI. 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 Costochondritis Episode of syncope (09/2019) Exercise-induced asthma (2013) Fatigue (01/2020) GERD (gastroesophageal reflux disease) GI bleed (07/2021) History of blood transfusion (~1989) Human papilloma virus Intermittent diarrhea Mucus in stool Nasal swelling Normocytic anemia Palpitations Pelvic pain Scoliosis Vaginal spotting Surgical History Anesthesia History of rhinoplasty (~10/2018) Omphalocele Pectus excavatum (~01/2014) Pectus excavatum (~06/2015) S/P bilateral inguinal hernia repair Status post rhinoplasty (~12/2019) Family History Father Heavy smoker Hypertension Hyperlipidemia Mental health problem AA (alcohol abuse) Asperger syndrome Mother Autoimmune disease Hereditary malabsorption of folic acid Mixed connective tissue disease Sister Substance abuse Mental health problem AA (alcohol abuse) Borderline personality disorder Grandfather Hypertension Hyperlipidemia Congestive heart failure Grandmother Celiac disease Diabetes mellitus Brother Depression Substance abuse Asperger syndrome Grandmother No problems noted. Grandfather Myocardial infarction AA (alcohol abuse) Family/Other Liver cancer Problem related to lifestyle Social History marital status: household members: spouse lives independently: Yes pets and animals: No education level: college current occupational exposures/hazards: No katheryn/voodoo: Taoist special katheryn needs: No Smoking Status: Never smoker second hand exposure: No alcohol intake: former substance use type: does not use Smoking Status: Never smoker alcohol intake frequency: 0-2 drinks per day Substance Use Type: does not use Exam <Shelli Sanabria MD - Last Filed: 01/01/22 18:34> Initial Vital Signs Initial Vital Signs: Vital Signs Temperature 97.7 F 12/31/21 15:00 Pulse Rate 105 H 12/31/21 15:00 Respiratory Rate 18 12/31/21 15:00 Blood Pressure 105/71 12/31/21 15:00 Pulse Oximetry 98 12/31/21 15:00 Oxygen Delivery Method 12/31/21 15:00 General: Healthy appearing, significantly anxious with tachypnea Able to give a complete and coherent history. Well-nourished well-developed HEENT: Moist mucous membranes, normal sclera with reactive pupils, Respiratory: Lungs are clear to auscultation, no wheezing no rales no rhonchi. Full and symmetrical air movement Cardiac: Regular rate and rhythm no murmurs no bruits Abdomen: Soft, significantleft lower quadrant tenderness developing guarding. Skin: Warm and dry, no rashes Neurologic: Grossly neurologically intact with no obvious asymmetries or abnormalities Extremities: No trauma, well perfused Psych: Cooperative, appropriate insight and affect <Chiara Singh DO - Last Filed: 12/31/21 23:09> Initial Vital Signs Initial Vital Signs: Vital Signs Temperature 97.7 F 12/31/21 15:00 Pulse Rate 105 H 12/31/21 15:00 Respiratory Rate 18 12/31/21 15:00 Blood Pressure 105/71 12/31/21 15:00 Pulse Oximetry 98 12/31/21 15:00 Oxygen Delivery Method 12/31/21 15:00 Course <Shelli Sanabria MD - Last Filed: 01/01/22 18:34> Orders Ordered: Discontinued Medications Hydrocodone Bitart/Acetaminophen (Hydrocodone/Acet 5/325 Prepack) 1 bottle MISC SEEINSTR ONE Stop: 12/31/21 20:00 Last Admin: 12/31/21 20:08 Dose: Not Given Documented By: RL Hydromorphone HCl (Hydromorphone 0.5 Mg Inj) 0.5 mg IV Q15MIN PRN PRN Reason: Pain, Last Admin: 12/31/21 17:25 Dose: 0.5 mg Documented By: LUPE Hydromorphone HCl (Hydromorphone 4 Mg Tablet) 4 mg PO NOW ONE Stop: 12/31/21 19:15 Last Admin: 12/31/21 19:38 Dose: 4 mg Documented By: LUPE Sodium Chloride (Normal Saline 0.9%) 1,000 mls @ 1,000 mls/hr IV BOLUS ONE Stop: 12/31/21 18:10 Last Infusion: 12/31/21 18:30 Dose: 0 mls/hr Documented By: Admin: 12/31/21 17:24 Dose: 1,000 mls/hr Documented By: LUPE Lorazepam (Lorazepam 2 Mg/Ml Inj) 0.5 mg IV NOW ONE Stop: 12/31/21 17:40 Last Admin: 12/31/21 17:53 Dose: 0.5 mg Documented By: LUPE Ondansetron HCl (Ondansetron 4 Mg/2 Ml Inj) 4 mg IV NOW ONE Stop: 12/31/21 17:12 Last Admin: 12/31/21 17:25 Dose: 4 mg Documented By: LUPE Vital Signs Vital signs: Vital Signs - 8 hr 12/31/21 19:49 Pulse Rate 109 H Blood Pressure 110/74 Pulse Oximetry 99 Oxygen Delivery Method Room Air <Chiara Singh DO - Last Filed: 12/31/21 23:09> Orders Ordered: Discontinued Medications Hydrocodone Bitart/Acetaminophen (Hydrocodone/Acet 5/325 Prepack) 1 bottle MISC SEEINSTR ONE Stop: 12/31/21 20:00 Last Admin: 12/31/21 20:08 Dose: Not Given Documented By: LUPE Hydromorphone HCl (Hydromorphone 0.5 Mg Inj) 0.5 mg IV Q15MIN PRN PRN Reason: Pain, Last Admin: 12/31/21 17:25 Dose: 0.5 mg Documented By: LUPE Hydromorphone HCl (Hydromorphone 4 Mg Tablet) 4 mg PO NOW ONE Stop: 12/31/21 19:15 Last Admin: 12/31/21 19:38 Dose: 4 mg Documented By: LUPE Sodium Chloride (Normal Saline 0.9%) 1,000 mls @ 1,000 mls/hr IV BOLUS ONE Stop: 12/31/21 18:10 Last Infusion: 12/31/21 18:30 Dose: 0 mls/hr Documented By: Admin: 12/31/21 17:24 Dose: 1,000 mls/hr Documented By: LUPE Lorazepam (Lorazepam 2 Mg/Ml Inj) 0.5 mg IV NOW ONE Stop: 12/31/21 17:40 Last Admin: 12/31/21 17:53 Dose: 0.5 mg Documented By: LUPE Ondansetron HCl (Ondansetron 4 Mg/2 Ml Inj) 4 mg IV NOW ONE Stop: 12/31/21 17:12 Last Admin: 12/31/21 17:25 Dose: 4 mg Documented By: LUPE Vital Signs Vital signs: Vital Signs - 8 hr 12/31/21 19:49 Pulse Rate 109 H Blood Pressure 110/74 Pulse Oximetry 99 Oxygen Delivery Method Room Air Medical Decision Making <Shelli Sanabria MD - Last Filed: 01/01/22 18:34> Lab Data Result diagrams: 12/31/21 17:17 12/31/21 17:17 Labs: Lab Results 12/31/21 12/31/21 12/31/21 Range/Units 17:17 17:17 17:17 WBC 11.4 H (4.5-11.0) X10^3/uL RBC 4.17 (4.0-5.2) X10^6/uL Hgb 10.8 L (12.0-16.0) g/dL Hct 32.4 L (36-46) % MCV 77.7 L (80-100) fL MCH 26.0 (26-34) PG MCHC 33.4 (30-36) % RDW 20.7 H (11.6-14.8) % Plt Count 337 (150-400) X10^3/uL Neut % (Auto) 84.2 H (50-75) % Lymph % (Auto) 8.3 L (25-40) % [place] % (Auto) 7.3 (3-14) % Eos % (Auto) 0.0 L (2-4) % Baso % (Auto) 0.2 (0-2) % Neut # (Auto) 9600 H (8375-8855) /uL Lymph # (Auto) 900 L (7357-6373) /uL [place] # (Auto) 800 (0-900) /uL Eos # (Auto) 0 (0-450) /uL Baso # (Auto) 0 (0-100) /uL RBC Morphology See below Anisocytosis 3+ H Sodium 133 L (137-145) mmol/L Potassium 3.9 (3.4-5.1) mmol/L Chloride 99 (98-107) mmol/L Carbon Dioxide 24 (22-32) mmol/L BUN 5 L (7-17) mg/dL Creatinine 0.56 (0.52-1.04) mg/dL Estimated GFR > 60 (>60) mL/min BUN/Creatinine Ratio 8.9 (6-22) Glucose 104 H (70-100) mg/dL Calcium 8.5 (8.4-10.2) mg/dL Total Bilirubin 0.3 (0.2-1.3) mg/dL AST 26 (14-36) IU/L ALT 17 (<35) IU/L Alkaline Phosphatase 96 (38-126) U/L Lactate Dehydrogenase 316 (313-618) U/L Total Protein 7.8 (6.3-8.2) g/dL Albumin 3.9 (3.5-5.0) g/dL Globulin 3.9 (1.7-4.1) g/dL Albumin/Globulin Ratio 1.0 (1.0-2.8) Carcinoembryonic Ag 0.4 (0.1-3.0) ng/mL CA 125 Antigen 18.7 (0-35) U/mL HCG, Quant < 2.4 mIU/mL SARS-CoV-2 (PCR) (Negative) 12/31/21 Range/Units 18:00 WBC (4.5-11.0) X10^3/uL RBC (4.0-5.2) X10^6/uL Hgb (12.0-16.0) g/dL Hct (36-46) % MCV (80-100) fL MCH (26-34) PG MCHC (30-36) % RDW (11.6-14.8) % Plt Count (150-400) X10^3/uL Neut % (Auto) (50-75) % Lymph % (Auto) (25-40) % [place] % (Auto) (3-14) % Eos % (Auto) (2-4) % Baso % (Auto) (0-2) % Neut # (Auto) (8858-8767) /uL Lymph # (Auto) (5850-1038) /uL [place] # (Auto) (0-900) /uL Eos # (Auto) (0-450) /uL Baso # (Auto) (0-100) /uL RBC Morphology Anisocytosis Sodium (137-145) mmol/L Potassium (3.4-5.1) mmol/L Chloride (98-107) mmol/L Carbon Dioxide (22-32) mmol/L BUN (7-17) mg/dL Creatinine (0.52-1.04) mg/dL Estimated GFR (>60) mL/min BUN/Creatinine Ratio (6-22) Glucose (70-100) mg/dL Calcium (8.4-10.2) mg/dL Total Bilirubin (0.2-1.3) mg/dL AST (14-36) IU/L ALT (<35) IU/L Alkaline Phosphatase (38-126) U/L Lactate Dehydrogenase (313-618) U/L Total Protein (6.3-8.2) g/dL Albumin (3.5-5.0) g/dL Globulin (1.7-4.1) g/dL Albumin/Globulin Ratio (1.0-2.8) Carcinoembryonic Ag (0.1-3.0) ng/mL CA 125 Antigen (0-35) U/mL HCG, Quant mIU/mL SARS-CoV-2 (PCR) Positive H (Negative) Imaging Data Pelvic ultrasound: Radiologist's Impression: Per engineering laboratory technician initial read: Significant abnormality in the left adnexa unsure if this is a an ovarian torsion or left adnexal mass. Will review with Radiology. [facility] Narrative Medical decision making narrative: 31-year-old woman presents with significant left lower quadrant pain getting worse since the . Her initial thought was that it was a side effect of starting Paxil on the . She has been taking around the clock ibuprofen and Tylenol and using heating pad but is having continued abdominal pain. test was negative at urgent care and she was sent to the emergency room for further evaluation. She is in significant amount of pain with guarding in the left lower quadrant. She is having no vaginal discharge or bleeding. Pelvic ultrasound has some findings in the left adnexa that need further delineation. Care is reviewed with KELLEE Stark at 5:45 a.m.. He is going to access the images and talk with Radiology and will return with the plan. In the meantime, labs COVID etc. have been ordered and patient will remain NPO. She had a lot a at 9:00 a.m. and a small package of nuts at 1:00 p.m. today 6pm reviewed with Dr. Stover. In his review of the ultrasound there is blood flow to the area and this is not a torsion. There is no fluid in the abdomen however this measures 7 cm x 7cm. Strong concern for hemorrhagic cyst with bl eeding into the cyst causing the severe pain. Dr. Stover will be in to evaluate the patient. There is no MRI available this evening next available earliest time would be 7:00 a.m. tomorrow morning. Due to her pain may need hospital admission overnight simply for pain control. With her history of umphalocele repair, laparoscopy maybe challenging. Patient was seen and evaluated by Dr. Stover. With shared decision making, they decided that home discharge and continued outpatient workup would be safe. Will send her home with 2, 2 mg doses of oral Dilaudid use this evening until she can have her prescription filled. Dr. Stover will be providing prescription as well as follow-up appointment time and scheduling for additional imaging. Patient is aware of all findings, concerns and reason to return to the emergency department. <Chiara Singh, DO - Last Filed: 12/31/21 23:09> Lab Data Labs: Lab Results 12/31/21 12/31/21 12/31/21 Range/Units 17:17 17:17 17:17 WBC 11.4 H (4.5-11.0) X10^3/uL RBC 4.17 (4.0-5.2) X10^6/uL Hgb 10.8 L (12.0-16.0) g/dL Hct 32.4 L (36-46) % MCV 77.7 L (80-100) fL MCH 26.0 (26-34) PG MCHC 33.4 (30-36) % RDW 20.7 H (11.6-14.8) % Plt Count 337 (150-400) X10^3/uL Neut % (Auto) 84.2 H (50-75) % Lymph % (Auto) 8.3 L (25-40) % [place] % (Auto) 7.3 (3-14) % Eos % (Auto) 0.0 L (2-4) % Baso % (Auto) 0.2 (0-2) % Neut # (Auto) 9600 H (7434-9913) /uL Lymph # (Auto) 900 L (6318-9426) /uL [place] # (Auto) 800 (0-900) /uL Eos # (Auto) 0 (0-450) /uL Baso # (Auto) 0 (0-100) /uL RBC Morphology See below Anisocytosis 3+ H Sodium 133 L (137-145) mmol/L Potassium 3.9 (3.4-5.1) mmol/L Chloride 99 (98-107) mmol/L Carbon Dioxide 24 (22-32) mmol/L BUN 5 L (7-17) mg/dL Creatinine 0.56 (0.52-1.04) mg/dL Estimated GFR > 60 (>60) mL/min BUN/Creatinine Ratio 8.9 (6-22) Glucose 104 H (70-100) mg/dL Calcium 8.5 (8.4-10.2) mg/dL Total Bilirubin 0.3 (0.2-1.3) mg/dL AST 26 (14-36) IU/L ALT 17 (<35) IU/L Alkaline Phosphatase 96 (38-126) U/L Lactate Dehydrogenase 316 (313-618) U/L Total Protein 7.8 (6.3-8.2) g/dL Albumin 3.9 (3.5-5.0) g/dL Globulin 3.9 (1.7-4.1) g/dL Albumin/Globulin Ratio 1.0 (1.0-2.8) Carcinoembryonic Ag 0.4 (0.1-3.0) ng/mL CA 125 Antigen 18.7 (0-35) U/mL HCG, Quant < 2.4 mIU/mL SARS-CoV-2 (PCR) (Negative) 12/31/21 Range/Units 18:00 WBC (4.5-11.0) X10^3/uL RBC (4.0-5.2) X10^6/uL Hgb (12.0-16.0) g/dL Hct (36-46) % MCV (80-100) fL MCH (26-34) PG MCHC (30-36) % RDW (11.6-14.8) % Plt Count (150-400) X10^3/uL Neut % (Auto) (50-75) % Lymph % (Auto) (25-40) % [place] % (Auto) (3-14) % Eos % (Auto) (2-4) % Baso % (Auto) (0-2) % Neut # (Auto) (6576-4724) /uL Lymph # (Auto) (1912-4499) /uL [place] # (Auto) (0-900) /uL Eos # (Auto) (0-450) /uL Baso # (Auto) (0-100) /uL RBC Morphology Anisocytosis Sodium (137-145) mmol/L Potassium (3.4-5.1) mmol/L Chloride (98-107) mmol/L Carbon Dioxide (22-32) mmol/L BUN (7-17) mg/dL Creatinine (0.52-1.04) mg/dL Estimated GFR (>60) mL/min BUN/Creatinine Ratio (6-22) Glucose (70-100) mg/dL Calcium (8.4-10.2) mg/dL Total Bilirubin (0.2-1.3) mg/dL AST (14-36) IU/L ALT (<35) IU/L Alkaline Phosphatase (38-126) U/L Lactate Dehydrogenase (313-618) U/L Total Protein (6.3-8.2) g/dL Albumin (3.5-5.0) g/dL Globulin (1.7-4.1) g/dL Albumin/Globulin Ratio (1.0-2.8) Carcinoembryonic Ag (0.1-3.0) ng/mL CA 125 Antigen (0-35) U/mL HCG, Quant mIU/mL SARS-CoV-2 (PCR) Positive H (Negative) MDM Narrative Medical decision making narrative: 31-year-old woman presents with significant left lower quadrant pain getting worse since the . Her initial thought was that it was a side effect of starting Paxil on the . She has been taking around the clock ibuprofen and Tylenol and using heating pad but is having continued abdominal pain. test was negative at urgent care and she was sent to the emergency room for further evaluation. She is in significant amount of pain with guarding in the left lower quadrant. She is having no vaginal discharge or bleeding. Pelvic ultrasound has some findings in the left adnexa that need further delineation. Care is reviewed with KELLEE Stark at 5:45 a.m.. He is going to access the images and talk with Radiology and will return with the plan. In the meantime, labs COVID etc. have been ordered and patient will remain NPO. She had a lot a at 9:00 a.m. and a small package of nuts at 1:00 p.m. today 6pm reviewed with Dr. Stover. In his review of the ultrasound there is blood flow to the area and this is not a torsion. There is no fluid in the abdomen however this measures 7 cm x 7cm. Strong concern for hemorrhagic cyst with bleeding into the cyst causing the severe pain. Dr. Stover will be in to evaluate the patient. There is no MRI available this evening next available earliest time would be 7:00 a.m. tomorrow morning. Due to her pain may need hospital admission overnight simply for pain control. With her history of umphalocele repair, laparoscopy maybe challenging. Patient was seen and evaluated by Dr. Stover. With shared decision making, they decided that home discharge and continued outpatient workup would be safe. Will send her home with 2, 2 mg doses of oral Dilaudid use this evening until she can have her prescription filled. Dr. Stover will be providing prescription as well as follow-up appointment time and scheduling for additional imaging. Patient is aware of all findings, concerns and reason to return to the emergency department. [place]-patient was discharged by Dr. Sanabria prior to my evaluation. However Dr. Stover who also saw her was having difficulty sending dilaudid prescription to the pharmacy I was able to send it for him. Will send home with 2, 2 mg doses of oral Dilaudid for tonight until prescription can be filled. Discharge Plan Departure Patient Disposition: Home Clinical Impression: Adnexal mass, COVID Instructions: DI for Ovarian Cyst Activity Restrictions/Additional Instructions: Thank you for coming in today, I am so sorry you have been suffering with this for so many days. You do have what looks like a large ovarian cyst that likely has bleeding into it that is causing your pain. At this point there is no evidence that your ovary is twisted on itself or you have an acute surgical emergency. Because you were incidentally positive for COVID, this complicates some of the operative planning electively. If you find that your having upper respiratory/COVID symptoms or feeling short of breath, you can return to the emergency department for further evaluation. I suspect that you will remain asymptomatic at this point. If you find that you are significantly worse, your pain cannot be controlled at home, you have any episodes were you pass out or almost pass out you do need to return to the emergency department immediately. Dr. Stover will be sharing suggestions and follow-up instructions with you. Prescriptions: New hydromorphone [Dilaudid] 2 mg tablet 2 mg PO Q4H PRN (Reason: pain) Qty: 30 0RF hydromorphone [Dilaudid] 2 mg tablet 2 mg PO Q4H PRN (Reason: pain) Qty: 30 0RF No Action ferrous sulfate, dried 159 mg (45 mg iron) tablet extended release 159 mg PO BID hydroxyzine pamoate 25 mg capsule 25 mg PO QID Qty: 90 1RF Rx Instructions: Take 1 capsule up to 4x/day as needed for anxiety or insomnia sumatriptan succinate [Imitrex] 25 mg tablet See Rx Instructions PO .COMPLEX Qty: 30 1RF Rx Instructions: take 1 tab at onset of headache; if no relief may repeat 1 tab after at least 2 hrs; max = 2 tabs/24 hr PO paroxetine HCl [Paxil] 10 mg tablet 10 mg PO DAILY Qty: 60 3RF Rx Instructions: Start with 10mg once each mornning. If effective, stay at that dose. If not, could go up to two (20mg) each morning. albuterol sulfate 90 mcg/actuation HFA aerosol inhaler 1 inh INHALATION Q6H PRN (Reason: shortness of breath or wheezing) Qty: 8.5 3RF lidocaine [Lidoderm] 5 % adhesive patch,medicated 1 patch TOP DAILY Qty: 15 0RF Rx Instructions: leave on most painful area for 12 hrs Referrals: Shana Gamez ARNP [Primary Care Provider] - Visit Report Forms: Patient Portal/API
--- NOTE | 2021-12-31 16:16 | DI.US.S_ITS ---
PROCEDURE: US PELVIC COMPLETE INDICATIONS: acute LLQ pain. ? ovarian cyst. negative preg TECHNIQUE: Real-time scanning was performed of the pelvic organs, with image documentation. Additional endovaginal scanning was necessary due to incomplete visualization of the adnexal and endometrial structures by transabdominal scanning. COMPARISON: [facility], , US PELVIC COMPLETE, 03/28/2020, 10:07. FINDINGS: Uterus: Uterus is anteverted and normal in size at 8.7 x 3.7 x 4.2 cm. The myometrium is homogeneous. The endometrium measures 4.1 mm combined thickness. Ovaries: The right ovary measures 3.5 x 1.9 x 1.2 cm, , and normal in size, echotexture and vascularity. The left ovary quite a heterogenous overall and measures 6.5 x 4.6 x 6.9 cm. There is a more focal heterogenous nodule measuring 3.9 x 1.9 cm. No adnexal masses are seen. Other: No pathologic free abdominal or pelvic fluid. IMPRESSION: Large heterogenous left ovary. Differential would include large heterogenous hemorrhagic cyst, endometrioma and mass lesion. Consider follow-up contrast MRI evaluation Approved by: Shaji López M.D. on 12/31/2021 at 16:41
[2021-12-31] MEDS: SODIUM CHLORIDE 0.9% 1,000 ML 1000 ML IV (17:24)
[2021-12-31] MEDS: HYDROMORPHONE 0.5 MG INJ IV (17:25)
[2021-12-31] MEDS: ONDANSETRON 4 MG/2 ML INJ IV (17:25)
[2021-12-31 17:28] LABS: Add Manual Diff / Slide Review NO; Basophils Absolute Auto 0 /uL (0-100); Basophils Percent Auto 0.2 % (0-2); Eosinophils Absolute Auto 0 /uL (0-450); Hematocrit 32.4 % (36-46); Hemoglobin 10.8 g/dL (12.0-16.0); Lymphocytes Absolute Auto 900 /uL (1100-4500); Lymphocytes Percent Auto 8.3 % (25-40); Mean Corpuscular HGB Conc 33.4 % (30-36); Mean Corpuscular Volume 77.7 fL (80-100); Monocytes Absolute Auto 800 /uL (0-900); Monocytes Percent Auto 7.3 % (3-14); Neutrophils Absolute Auto 9600 /uL (1500-7000); Neutrophils Percent Auto 84.2 % (50-75); Platelet Count 337 X10^3/uL (150-400); Red Blood Cell Count 4.17 X10^6/uL (4.0-5.2); Red Cell Distribution Width 20.7 % (11.6-14.8); White Blood Cell Count 11.4 X10^3/uL (4.5-11.0)
[2021-12-31 17:42] LABS: Alanine Aminotransferase 17 IU/L (<35); Albumin 3.9 g/dL (3.5-5.0); Alkaline Phosphatase 96 U/L (38-126); Aspartate Aminotransferase 26 IU/L (14-36); BUN Creatinine Ratio 8.9 (6-22); Bilirubin Total 0.3 mg/dL (0.2-1.3); Blood Urea Nitrogen 5 mg/dL (7-17); Calcium 8.5 mg/dL (8.4-10.2); Carbon Dioxide 24 mmol/L (22-32); Chloride 99 mmol/L (98-107); Estimated Glomerular Filt Rate > 60 mL/min (>60); Globulin 3.9 g/dL (1.7-4.1); Glucose 104 mg/dL (70-100); HEMOLYSIS < 15 (0-50); Potassium 3.9 mmol/L (3.4-5.1); Sodium 133 mmol/L (137-145); Total Protein 7.8 g/dL (6.3-8.2)
[2021-12-31] MEDS: LORazepam 2 MG/ML INJ 0.5 MG IV (17:53)
[2021-12-31 18:30] LABS: COVID19 -Nasal RAPID POSITIVE (Negative)
--- NOTE | 2021-12-31 19:10 | PM.CN ---
History of Present Illness Consult details Date Patient Seen: 12/31/21 Time Patient Seen: 19:11 Chief complaint: Possible ovarian cyst, also poss med reaction Narrative: Sydney is a 31 yo , LMP approximately 1 week ago who presents with a 3-4 day history of left lower quadrant discomfort which came on suddenly between 72-96 hours ago. The pain came on suddenly, is isolated to the left lower and mid quadrants, and the patient describes it as sharp and aching. Patient also states that over the last 24-36 hours she has developed aching in her anterior thigh as well as her lower back. Patient also states that she has increased discomfort following voiding but no change noted during or after bowel movements. She states that she had a similar episode of pain though not as severe in the 2014/2015 time frame. Patient started taking ibuprofen about 72 hours ago and experienced a nosebleed this morning. Review of systems is also notable for night sweats and she describes a ?weird? odor to her sweat. Patient's menses are regular and her most recent menses was also regular. Flow is typically 2 days of heavy bleeding with 2-3 days of light bleeding. She and her use natural family planning for contraception. Review of systems is negative for menstrual cramps/dysmenorrhea/dyspareunia but she does have occasional mittelschmerz. She denies family history of ovarian cancer but she does have a maternal cousin with endometriosis. Routine COVID testing is positive. Patient is asymptomatic. She has been vaccinated twice and boosted once most recently in June 2021. Meds Home Medications and Allergies Home Medications Medication Instructions Recorded Confirmed Type albuterol sulfate 90 mcg/actuation 1 inh inhalation Q6H PRN shortness 09/22/21 12/31/21 Rx aerosol inhaler of breath or wheezing #8.5 grams lidocaine 5 % topical patch 1 patch topical DAILY #15 ea 10/30/21 12/31/21 Rx (Lidoderm) ferrous sulfate, dried 159 mg (45 159 mg PO BID 11/02/21 12/31/21 History mg iron) tablet,extended release hydroxyzine pamoate 25 mg capsule 25 mg PO QID #90 caps 11/02/21 12/31/21 Rx paroxetine HCl 10 mg tablet (Paxil) 10 mg PO DAILY #60 tabs 06/06/22 06/19/22 Rx sumatriptan succinate 25 mg tablet See Rx Instructions PO .COMPLEX 12/29/21 12/31/21 Rx (Imitrex) #30 tabs hydromorphone 2 mg tablet 2 mg PO Q4H PRN pain #30 tabs 12/31/21 Rx (Dilaudid) Allergies Allergy/AdvReac Type Severity Reaction Status Date / Time latex Allergy Intermediate rash Verified 12/31/21 14:59 Review of Systems Review of Systems Narrative: Problem-specific ROS positives included in HPI Exam Vital Signs (past 8 hours): - 12/31/21 15:00 Temperature 97.7 F Pulse Rate 105 H Respiratory Rate 18 Blood Pressure 105/71 Pulse Oximetry 98 Oxygen Delivery Method Room Air Oxygen Delivery Method Room Air Const General: cooperative, in distress (Due to abdominal discomfort) and anxious Nutritional Appearance: thin Orientation: alert HENKS Head: normal to inspection, normocephalic and atraumatic Ears: hearing grossly normal bilaterally Eyes General: appearance normal, both eyes and all related structures Resp Effort & Inspection: normal respiratory effort and able to speak in complete sentences GI Inspection: incision (VML, xyphoid to 5 cm below umbilicus (oomphalocele repair)) and no visible herniation Palpation: soft, no hepatosplenomegaly, firm (Suprapubic from ML to LLQ), guarding, No hernia, mass (+/- mass effect vs. firmness), No rigid and tender General: other (Deferred) Extrem Right lower extremity: normal to inspection Psych Appearance: grossly normal and well kempt Mental Status: mental status grossly normal Speech and Movement: speech and movement normal Mood: anxious mood Affect: normal affect Attitude: cooperative Thought Process: normal Thought Content: normal Judgment: judgment good Objective Imaging PELVIC US: Radiologist's impression: PROCEDURE:? US PELVIC COMPLETE ? INDICATIONS:? acute LLQ pain. ? ovarian cyst.? negative preg ? TECHNIQUE:? Real-time scanning was performed of the pelvic organs, with image documentation.? Additional endovaginal scanning was necessary due to incomplete visualization of the adnexal and endometrial structures by transabdominal scanning.? ? COMPARISON:? [facility], , PELVIC COMPLETE, 03/28/2020, 10:07. ? FINDINGS:? ?? Uterus:? Uterus is anteverted and normal in size at 8.7 x 3.7 x 4.2 cm. The myometrium is homogeneous. ? The endometrium measures 4.1 mm combined thickness.? ? Ovaries:? The right ovary measures 3.5 x 1.9 x 1.2 cm, , and normal in size, echotexture and vascularity. ? The left ovary quite a heterogenous overall and measures 6.5 x 4.6 x 6.9 cm.? There is a more focal heterogenous nodule measuring 3.9 x 1.9 cm.? No adnexal masses are seen. ? Other:? No pathologic free abdominal or pelvic fluid. ? ? IMPRESSION:? ? Large heterogenous left ovary.? Differential would include large heterogenous hemorrhagic cyst, endometrioma and mass lesion.? Consider follow-up contrast MRI evaluation Labs Result Diagrams: 12/31/21 17:17 12/31/21 17:17 Labs: Laboratory Results - last 24 hr 12/31/21 12/31/21 12/31/21 17:17 17:17 18:00 WBC 11.4 H RBC 4.17 Hgb 10.8 L Hct 32.4 L MCV 77.7 L MCH 26.0 MCHC 33.4 RDW 20.7 H Plt Count 337 Neut % (Auto) 84.2 H Lymph % (Auto) 8.3 L [place] % (Auto) 7.3 Eos % (Auto) 0.0 L Baso % (Auto) 0.2 Neut # (Auto) 9600 H Lymph # (Auto) 900 L [place] # (Auto) 800 Eos # (Auto) 0 Baso # (Auto) 0 Sodium 133 L Potassium 3.9 Chloride 99 Carbon Dioxide 24 BUN 5 L Creatinine 0.56 Estimated GFR > 60 BUN/Creatinine Ratio 8.9 Glucose 104 H Calcium 8.5 Total Bilirubin 0.3 AST 26 ALT 17 Alkaline Phosphatase 96 Total Protein 7.8 Albumin 3.9 Globulin 3.9 Albumin/Globulin Ratio 1.0 SARS-CoV-2 (PCR) Positive H [facility] Medical History Abdominal pain Abnormal Pap smear of cervix (~2015) Bilateral inguinal hernia Cardiac arrhythmia 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 Costochondritis Episode of syncope (09/2019) Exercise-induced asthma (2013) Fatigue (01/2020) GERD (gastroesophageal reflux disease) GI bleed (07/2021) History of blood transfusion (~1989) Human papilloma virus Intermittent diarrhea Mucus in stool Nasal swelling Normocytic anemia Palpitations Pelvic pain Scoliosis Vaginal spotting Surgical History Anesthesia History of rhinoplasty (~10/2018) Omphalocele Pectus excavatum (~01/2014) Pectus excavatum (~06/2015) S/P bilateral inguinal hernia repair Status post rhinoplasty (~12/2019) Family History Father Heavy smoker Hypertension Hyperlipidemia Mental health problem AA (alcohol abuse) Asperger syndrome Mother Autoimmune disease Hereditary malabsorption of folic acid Mixed connective tissue disease Sister Substance abuse Mental health problem AA (alcohol abuse) Borderline personality disorder Grandfather Hypertension Hyperlipidemia Congestive heart failure Grandmother Celiac disease Diabetes mellitus Brother Depression Substance abuse Asperger syndrome Grandmother No problems noted. Grandfather Myocardial infarction AA (alcohol abuse) Family/Other Liver cancer Problem related to lifestyle Social History marital status: household members: spouse lives independently: Yes pets and animals: No education level: college current occupational exposures/hazards: No katheryn/lutheran: [employer] special katheryn needs: No Tobacco & Substance Use Smoking Status: Never smoker second hand exposure: No alcohol intake: former substance use type: does not use Assessment & Plan Assessment and plan (1) Adnexal mass: Problem details: Left, ovarian Status: Acute (2) Abdominal pain, acute, left lower quadrant: Status: Acute (3) COVID-19: Status: Acute Plan Discussed the imaging and clinical findings with the patient. She is understandably concerned about having a mass in her left ovary and the likelihood that it will require surgical evaluation, most likely in the near term. Her current level of pain does not justify emergent surgery especially with positive COVID PCR but patient reassured that if emergent surgery becomes necessary based on her pain symptoms or other findings, emergency surgery may be necessary despite the COVID PCR positive. Ovarian tumor markers: CA 125, hCG, LDH, AFP, CEA, inhibin B ordered. As recommended in the imaging report, will obtain a pelvic MRI on an expedited basis. My office staff will help facilitate scheduling. Patient will be contacted with results as soon as they are available. Oral narcotic analgesics, Dilaudid 2-4 mg p.o. q.4-6 hours dispense 30 will be sent to her pharmacy and a small supply provided overnight through the ED. Patient counseled regarding precautionary symptoms and provided with my cell phone number for immediate access should her symptoms exacerbate. Follow-up TBA based on MRI findings, results of tumor markers, and/or clinical course. Time Spent With Patient Critical Care time: I spent a total of [] minutes of critical care time on this patient's care today; this time is exclusive of procedural time.
[2021-12-31] MEDS: HYDROMORPHONE 4 MG TABLET PO (19:38)
[2021-12-31 19:49] VITALS: BP 110/74; PULSE 109; O2SAT 99
[2021-12-31 19:57] LABS: Lactate Dehydrogenase 316 U/L (313-618)
[2021-12-31 20:15] LABS: HCG Quantitative /Beta subunit < 2.4 mIU/mL
[2021-12-31 20:29] LABS: Cancer Antigen 125 18.7 U/mL (0-35); Carcinoembryonic Antigen 0.4 ng/mL (0.1-3.0)
[2022-01-01 03:53] LABS: Anisocytosis 3+
[2022-01-01 22:21] LABS: Alpha Fetoprotein <0.9 ng/mL (0.0-6.4)
[2022-01-03 11:36] LABS: Inhibin B 83.2 pg/mL (.)
== END 2021-12-31 20:07 | disposition home or self-care (01) ==
PROVIDERS: Emergency Medicine; Obstetrics & Gynecology; Emergency Provider Emergency Medicine; PCP Nurse Practitioner
DX: N94.89 Other specified conditions associated with female genital organs and menstrual cycle (principal); U07.1 COVID-19; R10.32 Left lower quadrant pain; M54.50 Low back pain, unspecified; R10.2 Pelvic and perineal pain
CPT/HCPCS: 76830; 76856; 80053; 82105; 82378; 83520; 83615; 84702; 85025; 86304; 87086; 87210; 87635; 96361; 96374; 96375; 99284; C9803; J1170; J2060; J2405

== ENCOUNTER → 2022-01-03 07:09 | Outpatient (CLI) | payer OTHER, SELFPAY ==
--- NOTE | 2022-01-03 07:09 | DI.MRI.S_ITS ---
PROCEDURE: MR PELVIS WO/W CON INDICATIONS: Pelvic Pain, L ovarian mass TECHNIQUE: Coronal HASTE, sagittal breath-hold T2 FSE; axial T1 FSE with and without fat saturation through the pelvis. Optional long- and short-axis uterine nonbreath-hold T2 FSE through the uterus. Sagittal or axial dynamic VIBE during administration of contrast. Post-contrast axial or coronal VIBE/2-D FLASH with fat saturation from the iliac crests to the symphysis. Restricted diffusion weighted imaging and ADC may be performed. 20 cc ProHance IV contrast. COMPARISON: [facility], CT, CT ANGIO CHEST PE PROTOCOL, 10/30/2021, 4:10. [facility], MR, MR ABDOMEN WO/W CON, 11/09/2021, 8:47. [facility], US, US PELVIC COMPLETE, 12/31/2021, 16:43. FINDINGS: Image quality: Excellent. Uterus: Uterus is anteverted normal in size and measures 6.1 x 4.7 x 3.7 cm. Endometrium is normal in thickness measuring 0.3 cm. Junctional zone is prominent measuring approximately 0.8 cm. Adnexa: Heterogeneous structure in the region of the left adnexa. This appears to be related to a displaced cecum, (4/9). However, this area is T1 hypointense, heterogeneous T2 signal, with peripheral enhancement and measures 3.3 x 2.6 cm, (13/112). There is restricted diffusion at this site. The left ovary is located more superior with small ovarian follicles and measures 2.2 x 1.5 x 1.4 cm, (3/20). Right ovary measures 2.7 x 2.4 x 1.7 cm. Urinary system: Bladder is decompressed. Distal ureters are non distended. Urethra appears normal in morphology. Nodes and vessels: No pelvic or inguinal adenopathy by size criteria. Iliac vessels are normal in size. Bowel and peritoneum: No small bowel obstruction. Please see description above. Soft tissues: No inguinal hernias. No findings of pelvic floor incompetence in the absence of provocation. Bones: Marrow demonstrates normal overall signal. IMPRESSION: 1. Suspect heterogeneous fluid collection with restricted diffusion in the left pelvis. This could be due to pericecal abscess or ruptured appendicitis. Unlikely exophytic heterogeneous ovarian cysts. -Recommend further evaluation with CT abdomen and pelvis with IV contrast. 2. Ovaries appear normal in size with multiple small follicles. Comment: Findings were discussed with Dr. Bruce Stover at the time of dictation. Dictated by: Casey Steiner M.D. on 01/03/2022 at 9:30 Approved by: Casey Steiner M.D. on 01/03/2022 at 9:57
== END ==
PROVIDERS: PCP Nurse Practitioner; Referring Provider Obstetrics & Gynecology; Visit Provider Obstetrics & Gynecology
DX: R10.32 Left lower quadrant pain (principal); N94.89 Other specified conditions associated with female genital organs and menstrual cycle
CPT/HCPCS: 72197; A9579

== ENCOUNTER → 2022-01-05 16:11 | Outpatient (CLI) | payer OTHER, SELFPAY | PROVIDERS: PCP Nurse Practitioner; Referring Provider Obstetrics & Gynecology; Visit Provider Obstetrics & Gynecology | DX: K62.5 Hemorrhage of anus and rectum (principal); R19.7 Diarrhea, unspecified; D50.9 Iron deficiency anemia, unspecified | CPT/HCPCS: 87045; 87205; 87899 ==

== ENCOUNTER → 2022-01-06 08:15 | Outpatient (CLI) | payer OTHER, SELFPAY ==
[2022-01-06 09:12] LABS: Add Manual Diff / Slide Review NO; Basophils Absolute Auto 0 /uL (0-100); Basophils Percent Auto 0.5 % (0-2); Eosinophils Absolute Auto 100 /uL (0-450); Eosinophils Percent Auto 1.4 % (2-4); Hematocrit 34.9 % (36-46); Hemoglobin 11.2 g/dL (12.0-16.0); Lymphocytes Absolute Auto 1500 /uL (1100-4500); Lymphocytes Percent Auto 20.3 % (25-40); Mean Corpuscular HGB Conc 32.1 % (30-36); Monocytes Absolute Auto 500 /uL (0-900); Monocytes Percent Auto 6.8 % (3-14); Neutrophils Absolute Auto 5400 /uL (1500-7000); Platelet Count 514 X10^3/uL (150-400); Red Blood Cell Count 4.48 X10^6/uL (4.0-5.2); Red Cell Distribution Width 20.7 % (11.6-14.8); White Blood Cell Count 7.6 X10^3/uL (4.5-11.0)
[2022-01-06 09:14] LABS: INR 1.1 (0.9-1.3); Prothrombin Time 12.3 SECONDS (10.1-12.7)
[2022-01-06 09:21] LABS: Alanine Aminotransferase 21 IU/L (<35); Albumin 3.9 g/dL (3.5-5.0); Alkaline Phosphatase 89 U/L (38-126); Aspartate Aminotransferase 27 IU/L (14-36); Bilirubin Total 0.3 mg/dL (0.2-1.3); Blood Urea Nitrogen 9 mg/dL (7-17); Calcium 8.8 mg/dL (8.4-10.2); Carbon Dioxide 28 mmol/L (22-32); Chloride 104 mmol/L (98-107); Estimated Glomerular Filt Rate > 60 mL/min (>60); Glucose 89 mg/dL (70-100); HEMOLYSIS < 15 (0-50); Potassium 4.4 mmol/L (3.4-5.1); Sodium 138 mmol/L (137-145); Total Protein 7.9 g/dL (6.3-8.2)
[2022-01-06 09:50] LABS: Anisocytosis 1+
[2022-01-06 09:51] LABS: Hypochromasia 1+; Microcytosis 1+
[2022-01-06 10:25] LABS: Thyroid Stimulating Hormone 1.05 uIU/mL (0.47-4.68)
[2022-01-06 10:29] LABS: Ferritin 20 ng/mL (6-137)
[2022-01-09 13:17] LABS: Deamidated Gliadin Ab IgA 6 units (0-19); Deamidated Gliadin Ab IgG 2 units (0-19); Immunoglobulin A,Qn 456 mg/dL (87-352); t-Transglutaminase IgA <2 U/mL (0-3)
== END ==
PROVIDERS: PCP Nurse Practitioner; Referring Provider Internal Medicine Gastroenterology; Visit Provider Internal Medicine Gastroenterology
DX: K62.5 Hemorrhage of anus and rectum (principal); R19.7 Diarrhea, unspecified; D50.9 Iron deficiency anemia, unspecified; D64.9 Anemia, unspecified; K92.2 Gastrointestinal hemorrhage, unspecified
CPT/HCPCS: 36415; 80053; 82728; 82784; 83516; 84443; 84586; 85025; 85610

== ENCOUNTER → 2022-01-24 13:47 | Outpatient (CLI) | payer OTHER, SELFPAY ==
--- NOTE | 2022-01-24 13:49 | DI.CT.S_ITS ---
PROCEDURE: CT ABDOMEN PELVIS W CON INDICATIONS: F/U Pelvic Abscess, fluid collection TECHNIQUE: After the administration of IV contrast, axial sections were acquired from the lung bases to the pubic symphysis. Coronal and sagittal reformats were performed. For radiation dose reduction, the following was used: automated exposure control, adjustment of mA and/or kV according to patient size. COMPARISON: [facility], CT, CT ABDOMEN PELVIS WITH CONTRAST, 01/06/2022, 19:46. FINDINGS: Image quality: Excellent. Lung bases: Unremarkable. Heart: No significant findings. ABDOMEN: Liver: Unremarkable. Gallbladder: Unremarkable. Biliary ducts: Unremarkable. Pancreas: Unremarkable. Spleen: Unremarkable. Adrenal Glands: Unremarkable. Kidneys and Ureters: Unremarkable. Stomach and Bowel: Significant fecal stasis in the colon is seen. No evidence of bowel obstruction. Previously described abscess collection in left lower quadrant abdomen is smaller in size now measures approximately 3.3 x 4.5 x 4.3 cm in largest transverse, AP and craniocaudal dimensions series 2, image 67 and series 4, image 20. This was previously measured at 7 x 5.9 x 4.5 cm in size. No new area of abscess collection is seen. Adjacent bowel wall thickening in left lower quadrant is seen. Peritoneum: No abnormal intraperitoneal fluid. No free air. Ventral Wall: No hernia. Abdominal Nodes: No retroperitoneal or mesenteric adenopathy by size criteria. Vessels: Aorta and inferior vena cava are normal in size. PELVIS: Pelvic Organs: Unremarkable. Bladder: Unremarkable. Pelvic Nodes: No enlarged lymph nodes. Miscellaneous: No inguinal hernias are seen. Bones: No suspicious bony lesion. No acute vertebral body compression fracture. IMPRESSION: 1. Interval decrease in size of patient's known abscess collection in left lower quadrant abdomen with adjacent bowel wall thickening. The collection now measures up to 3.3 x 4.5 x 4.3 cm in size. No new abscess collection is noted. No free fluid or free air. 2. Significant constipation. No bowel obstruction. Dictated by: Sam Ruiz M.D. on 01/24/2022 at 16:42 Approved by: Sam Ruiz M.D. on 01/24/2022 at 16:47
== END ==
PROVIDERS: PCP Nurse Practitioner; Referring Provider Obstetrics & Gynecology; Visit Provider Obstetrics & Gynecology
DX: N73.9 Female pelvic inflammatory disease, unspecified (principal); K59.00 Constipation, unspecified; K65.1 Peritoneal abscess
CPT/HCPCS: 74177; Q9967

== ENCOUNTER → 2022-02-14 16:42 | Outpatient (CLI) | payer OTHER, SELFPAY ==
[2022-02-14 18:30] LABS: Prothrombin Time 10.7 SECONDS (10.1-12.7)
[2022-02-14 18:44] LABS: Alanine Aminotransferase 20 IU/L (<35); Albumin 4.3 g/dL (3.5-5.0); Albumin Globulin Ratio 1.2 (1.0-2.8); Alkaline Phosphatase 84 U/L (38-126); Aspartate Aminotransferase 27 IU/L (14-36); BUN Creatinine Ratio 21.7 (6-22); Bilirubin Total 0.1 mg/dL (0.2-1.3); Blood Urea Nitrogen 10 mg/dL (7-17); Calcium 8.7 mg/dL (8.4-10.2); Carbon Dioxide 24 mmol/L (22-32); Chloride 104 mmol/L (98-107); Estimated Glomerular Filt Rate > 60 mL/min (>60); Globulin 3.5 g/dL (1.7-4.1); Glucose 80 mg/dL (70-100); HEMOLYSIS < 15 (0-50); Potassium 3.9 mmol/L (3.4-5.1); Sodium 137 mmol/L (137-145); Total Protein 7.8 g/dL (6.3-8.2)
[2022-02-14 19:42] LABS: Appearance Urine UA CLEAR; Bilirubin Urine UA NEGATIVE (NEGATIVE); Color Urine UA YELLOW; Glucose Urine UA NEGATIVE (Negative); Ketones Urine UA NEGATIVE (NEGATIVE); Leukocyte Esterase Urine UA NEGATIVE (NEGATIVE); Nitrite Urine UA NEGATIVE (Negative); Occult Blood Urine UA NEGATIVE (Negative); Protein Urine UA NEGATIVE (Negative); Specific Gravity Urine UA <=1.005 (1.000-1.035); Urobilinogen Urine UA 0.2 E.U./dL (0.2)
[2022-02-14 19:53] LABS: RBC Urine None Seen (0-5/HPF)
[2022-02-14 19:54] LABS: Bacteria Urine None Seen; Culture Indicated Urine Cult Not Indicated; Squamous Epithelial Cell Urine 1-5 /HPF (0-5/HPF); WBC Urine 0-1/HPF (0-5/HPF)
== END ==
PROVIDERS: PCP Nurse Practitioner; Referring Provider Nurse Practitioner; Visit Provider Nurse Practitioner
DX: D64.9 Anemia, unspecified (principal); K92.2 Gastrointestinal hemorrhage, unspecified; N39.0 Urinary tract infection, site not specified; C18.9 Malignant neoplasm of colon, unspecified; R23.3 Spontaneous ecchymoses; R53.83 Other fatigue
CPT/HCPCS: 36415; 80053; 81001; 85610

== ENCOUNTER 2022-02-18 17:10 | Emergency (ER) | payer OTHER, SELFPAY ==
[2022-02-18 17:21] VITALS: BP 113/66; PULSE 78; RESP 18; TEMP 36.9; O2SAT 99
[2022-02-18 17:54] LABS: Add Manual Diff / Slide Review NO; Basophils Absolute Auto 100 /uL (0-100); Basophils Percent Auto 0.7 % (0-2); Eosinophils Absolute Auto 100 /uL (0-450); Eosinophils Percent Auto 0.8 % (2-4); Hematocrit 34.4 % (36-46); Hemoglobin 11.4 g/dL (12.0-16.0); Lymphocytes Absolute Auto 1800 /uL (1100-4500); Lymphocytes Percent Auto 17.7 % (25-40); Mean Corpuscular HGB Conc 33.2 % (30-36); Mean Corpuscular Hemoglobin 25.2 PG (26-34); Mean Corpuscular Volume 75.8 fL (80-100); Monocytes Absolute Auto 1000 /uL (0-900); Monocytes Percent Auto 9.8 % (3-14); Neutrophils Absolute Auto 7400 /uL (1500-7000); Platelet Count 360 X10^3/uL (150-400); Red Blood Cell Count 4.54 X10^6/uL (4.0-5.2); Red Cell Distribution Width 19.5 % (11.6-14.8); White Blood Cell Count 10.4 X10^3/uL (4.5-11.0)
[2022-02-18 18:01] LABS: Alanine Aminotransferase 16 IU/L (<35); Albumin 4.2 g/dL (3.5-5.0); Albumin Globulin Ratio 1.1 (1.0-2.8); Alkaline Phosphatase 84 U/L (38-126); Aspartate Aminotransferase 24 IU/L (14-36); BUN Creatinine Ratio 22.4 (6-22); Bilirubin Total 0.2 mg/dL (0.2-1.3); Blood Urea Nitrogen 11 mg/dL (7-17); Calcium 8.8 mg/dL (8.4-10.2); Carbon Dioxide 26 mmol/L (22-32); Chloride 104 mmol/L (98-107); Estimated Glomerular Filt Rate > 60 mL/min (>60); Globulin 3.7 g/dL (1.7-4.1); Glucose 84 mg/dL (70-100); HEMOLYSIS < 15 (0-50); Lipase 48 U/L (23-300); Potassium 3.8 mmol/L (3.4-5.1); Sodium 137 mmol/L (137-145); Total Protein 7.9 g/dL (6.3-8.2)
[2022-02-18 18:06] LABS: Lactate (Lactic Acid) 1.1 mmol/L (0.7-2.1)
[2022-02-18 18:25] LABS: Procalcitonin 0.04 ng/mL (<0.5)
[2022-02-18 19:16] VITALS: BP 110/70; PULSE 72; RESP 16; O2SAT 96
--- NOTE | 2022-02-18 19:24 | ED.ABDPAIN ---
HPI - Abdominal Pain General Chief Complaint: Abdominal Pain Stated Complaint: Colon Cancer, Fever and ABD abcess Time Seen by Provider: 02/18/22 17:51 Source: patient Mode of arrival: Ambulatory History of Present Illness HPI narrative: Patient is a 31-year-old female who has had complicated history. She has had a longstanding pelvic abscess for which she received antibiotics for. She had a colonoscopy recently found out that she has a mass. She is actually scheduled for surgery with Dr. Santiago next week. Today she comes in with a temperature of 99? she was instructed that if she has a fever to be evaluated. She has been off antibiotics for buttock abscess for a while. She has had some joint pain. She has had some intermittent abdominal pain. She has had multiple CTs. Her pain is not out of proportion or new today. She is not wanting a new CT. She is scheduled to see [facility] later this month Related Data Home Medications Medication Instructions Recorded Confirmed doxycycline hyclate 100 mg tablet 100 mg PO BID 01/10/22 02/15/22 metronidazole 500 mg tablet 500 mg PO TID 01/10/22 02/15/22 Previous Rx's Medication Instructions Recorded albuterol sulfate 90 mcg/actuation 1 inh inhalation Q6H PRN shortness 09/22/21 aerosol inhaler of breath or wheezing #8.5 grams hydroxyzine pamoate 25 mg capsule 25 mg PO QID #90 caps 11/02/21 hydromorphone 2 mg tablet 2 mg PO Q4H PRN pain #30 tabs 12/31/21 (Dilaudid) nitrofurantoin 100 mg PO BID #14 caps 02/06/22 monohydrate/macrocrystals 100 mg capsule (Macrobid) Allergies Allergy/AdvReac Type Severity Reaction Status Date / Time latex Allergy Intermediate rash Verified 02/15/22 15:02 Review of Systems Review of Systems Narrative: GENERAL: Denies chills, fatigue, malaise, fever, sweats, travel HEENT: Denies sinus pain, ear pain, sore throat, difficulty swallowing, neck pain RESPIRATORY: Denies dyspnea, cough, wheezing, hemoptysis, sputum. CARDIOVASCULAR: Denies chest pain, palpitations, orthopnea, edema GASTROINTESTINAL: See HPI : Denies dysuria, frequency, incontinence, hematuria, urinary retention, flank pain. MUSCULOSKELETAL: Denies weakness, joint pain, or bony pain SKIN: No rash, no erythema, no pruritus NEUROLOGIC: Denies weakness, dizziness, headache, numbness, change in speech, confusion PSYCHIATRIC: No concerning psychosocial issues. 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 Costochondritis Episode of syncope (09/2019) Exercise-induced asthma (2013) Fatigue (01/2020) GERD (gastroesophageal reflux disease) GI bleed (07/2021) History of blood transfusion (~1989) Human papilloma virus Intermittent diarrhea Mucus in stool Nasal swelling Normocytic anemia Palpitations Pelvic pain Scoliosis Vaginal spotting Surgical History Anesthesia History of rhinoplasty (~10/2018) Omphalocele Pectus excavatum (~01/2014) Pectus excavatum (~06/2015) S/P bilateral inguinal hernia repair Status post rhinoplasty (~12/2019) Family History Father Heavy smoker Hypertension Hyperlipidemia Mental health problem AA (alcohol abuse) Asperger syndrome Mother Autoimmune disease Hereditary malabsorption of folic acid Mixed connective tissue disease Sister Substance abuse Mental health problem AA (alcohol abuse) Borderline personality disorder Grandfather Hypertension Hyperlipidemia Congestive heart failure Grandmother Celiac disease Diabetes mellitus Brother Depression Substance abuse Asperger syndrome Grandmother No problems noted. Grandfather Myocardial infarction AA (alcohol abuse) Family/Other Liver cancer Problem related to lifestyle Social History marital status: household members: spouse lives independently: Yes pets and animals: No education level: college current occupational exposures/hazards: No katheryn/samaritan: Yazidism special katheryn needs: No Smoking Status: Never smoker second hand exposure: No alcohol intake: former substance use type: does not use Smoking Status: Never smoker alcohol intake frequency: 0-2 drinks per day Substance Use Type: does not use Exam Initial Vital Signs Initial Vital Signs: Vital Signs Temperature 98.5 F 02/18/22 17:21 Pulse Rate 78 02/18/22 17:21 Respiratory Rate 18 02/18/22 17:21 Blood Pressure 113/66 02/18/22 17:21 Pulse Oximetry 99 02/18/22 17:21 Oxygen Delivery Method 02/18/22 17:21 GENERAL: Alert very pleasant well-appearing 31-year-old female and in no acute distress. HEENT: Head atraumatic,EOMI, pupils reactive, face symmetric, moist mucous membranes CARDIOVASCULAR: Regular rate and rhythm without murmurs, rubs or gallops. RESPIRATORY: Breath sounds equal bilaterally, no wheezes rales or rhonchi. ABDOMEN: Soft, minimal tenderness no guarding or rebound no distention EXTREMITIES: Normal range of motion, no clubbing or edema. Neurovascularly intact NEUROLOGICAL: Alert and oriented x4. SKIN: Warm, dry, no laceration, no petechiae, no rashes or lesions. Course Orders Ordered: ED Orders 02/18/22 19:17 Urine Culture Stat Urine Microscopic Stat Vital Signs Vital signs: Vital Signs - 8 hr 02/18/22 17:21 02/18/22 19:16 Temperature 98.5 F Pulse Rate 78 72 Respiratory Rate 18 16 Blood Pressure 113/66 110/70 Pulse Oximetry 99 96 Oxygen Delivery Method Room Air Room Air MDM - Abdominal Pain Lab Data Result diagrams: 02/18/22 17:40 02/18/22 17:40 Labs: Lab Results 02/18/22 02/18/22 02/18/22 Range/Units 17:40 17:40 17:40 WBC 10.4 (4.5-11.0) X10^3/uL RBC 4.54 (4.0-5.2) X10^6/uL Hgb 11.4 L (12.0-16.0) g/dL Hct 34.4 L (36-46) % MCV 75.8 L (80-100) fL MCH 25.2 L (26-34) PG MCHC 33.2 (30-36) % RDW 19.5 H (11.6-14.8) % Plt Count 360 (150-400) X10^3/uL Neut % (Auto) 71.0 (50-75) % Lymph % (Auto) 17.7 L (25-40) % Delta % (Auto) 9.8 (3-14) % Eos % (Auto) 0.8 L (2-4) % Baso % (Auto) 0.7 (0-2) % Neut # (Auto) 7400 H (1258-6734) /uL Lymph # (Auto) 1800 (0760-9112) /uL Delta # (Auto) 1000 H (0-900) /uL Eos # (Auto) 100 (0-450) /uL Baso # (Auto) 100 (0-100) /uL Sodium 137 (137-145) mmol/L Potassium 3.8 (3.4-5.1) mmol/L Chloride 104 (98-107) mmol/L Carbon Dioxide 26 (22-32) mmol/L BUN 11 (7-17) mg/dL Creatinine 0.49 L (0.52-1.04) mg/dL Estimated GFR > 60 (>60) mL/min BUN/Creatinine Ratio 22.4 H (6-22) Glucose 84 (70-100) mg/dL Lactate 1.1 (0.7-2.1) mmol/L Calcium 8.8 (8.4-10.2) mg/dL Total Bilirubin 0.2 (0.2-1.3) mg/dL AST 24 (14-36) IU/L ALT 16 (<35) IU/L Alkaline Phosphatase 84 (38-126) U/L Total Protein 7.9 (6.3-8.2) g/dL Albumin 4.2 (3.5-5.0) g/dL Globulin 3.7 (1.7-4.1) g/dL Albumin/Globulin Ratio 1.1 (1.0-2.8) Lipase 48 (23-300) U/L Procalcitonin (<0.5) ng/mL Urine RBC (0-5/HPF) Urine WBC (0-5/HPF) Ur Squamous Epith Cells (0-5/HPF) Urine Bacteria (None) Ur Culture Indicated? 02/18/22 02/18/22 Range/Units 17:40 19:17 WBC (4.5-11.0) X10^3/uL RBC (4.0-5.2) X10^6/uL Hgb (12.0-16.0) g/dL Hct (36-46) % MCV (80-100) fL MCH (26-34) PG MCHC (30-36) % RDW (11.6-14.8) % Plt Count (150-400) X10^3/uL Neut % (Auto) (50-75) % Lymph % (Auto) (25-40) % Delta % (Auto) (3-14) % Eos % (Auto) (2-4) % Baso % (Auto) (0-2) % Neut # (Auto) (4423-5407) /uL Lymph # (Auto) (7831-3950) /uL Delta # (Auto) (0-900) /uL Eos # (Auto) (0-450) /uL Baso # (Auto) (0-100) /uL Sodium (137-145) mmol/L Potassium (3.4-5.1) mmol/L Chloride (98-107) mmol/L Carbon Dioxide (22-32) mmol/L BUN (7-17) mg/dL Creatinine (0.52-1.04) mg/dL Estimated GFR (>60) mL/min BUN/Creatinine Ratio (6-22) Glucose (70-100) mg/dL Lactate (0.7-2.1) mmol/L Calcium (8.4-10.2) mg/dL Total Bilirubin (0.2-1.3) mg/dL AST (14-36) IU/L ALT (<35) IU/L Alkaline Phosphatase (38-126) U/L Total Protein (6.3-8.2) g/dL Albumin (3.5-5.0) g/dL Globulin (1.7-4.1) g/dL Albumin/Globulin Ratio (1.0-2.8) Lipase (23-300) U/L Procalcitonin 0.04 (<0.5) ng/mL Urine RBC 0-1/hpf (0-5/HPF) Urine WBC 1-5/hpf (0-5/HPF) Ur Squamous Epith Cells 1-5 /hpf (0-5/HPF) Urine Bacteria Few (2-10) H (None) Ur Culture Indicated? Culture not indicate Point of care testing: Point of Care Testing Test Results Negative Urine Dip Bedside Urine Glucose Negative Bedside Urine Bilirubin - Negative Bedside Urine Ketone - Negative Urine Specific [place] 1.010 Bedside Urine Occult Blood +++ Bedside Urine pH 7.0 Bedside Urine Protein - Negative Bedside Urine Urobilinogen - Negative Bedside Urine Nitrite - Negative Bedside Urine Leukocytes - Negative Esterase MDM Narrative Medical decision making narrative: Patient overall appears well. Blood work does not show any evidence of infection. She has been on antibiotics she has had CTs that she was improving pelvic abscess. She has known colon cancer she has follow-up with this. This time she is not wanting CT which I feel is appropriate. Blood work is reassuring. He does not need any pain medication here. She was just worried because she had a temperature of 99.4?. Discharge Plan Departure Patient Disposition: Home Clinical Impression: Colon cancer Instructions: Colon Cancer Activity Restrictions/Additional Instructions: *You have been diagnosed with colon cancer *What to do: You've got this. You are doing all the right things. Monitor for temperature more than 100.4 for more than 1 hour and then come to the hospital. Today your blood work is overall reassuring. *Continue to take medications as directed *Follow up with your primary care provider in 2-3 days or call [phone] Dr. Wade as scheduled *Return to ER if you should have temperature of a 100.4? increasing pain persistent vomiting or any new, worsening or concerning symptoms Prescriptions: No Action hydroxyzine pamoate 25 mg capsule 25 mg PO QID Qty: 90 1RF Rx Instructions: Take 1 capsule up to 4x/day as needed for anxiety or insomnia nitrofurantoin monohyd/m-cryst [Macrobid] 100 mg capsule 100 mg PO BID Qty: 14 0RF Rx Instructions: must administer with a meal/food albuterol sulfate 90 mcg/actuation HFA aerosol inhaler 1 inh INHALATION Q6H PRN (Reason: shortness of breath or wheezing) Qty: 8.5 3RF doxycycline hyclate 100 mg tablet 100 mg PO BID metronidazole 500 mg tablet 500 mg PO TID hydromorphone [Dilaudid] 2 mg tablet 2 mg PO Q4H PRN (Reason: pain) Qty: 30 0RF Referrals: Shana Gamez ARNP [Primary Care Provider] - Chandu Wade MD [Physician] - Visit Report Forms: Patient Portal/API
[2022-02-18 19:43] LABS: Bacteria Urine Few (2-10); RBC Urine 0-1/HPF (0-5/HPF); Squamous Epithelial Cell Urine 1-5 /HPF (0-5/HPF); WBC Urine 1-5/HPF (0-5/HPF)
== END 2022-02-18 19:53 | disposition home or self-care (01) ==
PROVIDERS: Family Medicine Addiction Medicine; Emergency Provider Emergency Medicine; PCP Nurse Practitioner
DX: C18.9 Malignant neoplasm of colon, unspecified (principal); R50.9 Fever, unspecified
CPT/HCPCS: 36415; 80053; 81003; 81015; 81025; 83605; 83690; 84145; 85025; 87040; 87077; 87086; 99283

== ENCOUNTER → 2022-02-21 08:31 | Outpatient (CLI) | payer OTHER, SELFPAY ==
[2022-02-21 09:32] LABS: COVID19 -Nasal RAPID Negative (Negative)
== END ==
PROVIDERS: PCP Nurse Practitioner; Visit Provider Surgery
DX: Z20.822 Contact with and (suspected) exposure to COVID-19 (principal); Z01.812 Encounter for preprocedural laboratory examination
CPT/HCPCS: 87635; C9803

== ENCOUNTER 2022-02-22 06:38 | Inpatient (IN) | payer OTHER, SELFPAY ==
--- NOTE | 2022-02-20 15:58 | DIET.CONS2 ---
Dietary Inpatient Consultation Note Admission Date: Pt contacted by phone for [facility] nutrition consultation. 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 Pt following clear liquid diet now, has pre-surgery drink which she will consume prior to 5:45am day of procedure. Pt with no dietary restrictions besides quinoa. Provided education on ERAS protocol, diet advancement post-procedure. RD to visit pt at bedside to provide low fiber MNT handout for d/c. Electronically Signed by: Petra Argueta 02/20/22 15:58 Clinical Dietitian [address] [address]
[2022-02-22] VITALS (19 sets, daily range): BP systolic 91–124; BP diastolic 46–80; PULSE 62–113; RESP 12–19; TEMP 35.7–36.2; O2SAT 93–100
--- NOTE | 2022-02-22 | PATH_ITS ---
[facility] Accession Number: [id number] . 01 Material submitted: . colon - RIGHT COLON . 01 Diagnosis: A. Right Colon, Right Hemicolectomy: Invasive adenocarcinoma. Please see Cancer Case Summary below. . CASE SUMMARY: Procedure: Right hemicolectomy. Tumor site: Cecum. Histologic type: Adenocarcinoma. Histologic grade: Moderately to poorly differentiated (G2-G3). Tumor size: Greatest dimension: 19 mm as measured on slide A6. Multiple primary sites: Not applicable. Tumor extent: Invades visceral peritoneum (including tumor continuous with serosal surface through area of inflammation). Macroscopic tumor perforation: Present. Lymphovascular invasion: Present. Perineural invasion: Not identified. Type of polyp in which invasive carcinoma arose: Tubulovillous adenoma. Treatment effect: No known presurgical therapy. Margin status for invasive carcinoma: All margins negative for invasive carcinoma. Closest margin to invasive carcinoma: Proximal: 3.2 cm. Margin staus for noninvasive tumor: All margins negative for high-grade dysplasia/intramucosal carcinoma and low-grade dysplasia. . Regional lymph node status: Regional lymph nodes present. Tumor present in regional lymph nodes Number of lymph nodes with tumor: One (1). Number of lymph nodes examined: Nineteen (19). Tumor deposits: Not identified. . Pathologic stage classification (AJCC 8th Edition): pT category: pT4a pN category: pN1a pM category: Not applicable. . Additional findings: Tubulovillous adenoma. . Special studies: No loss of expression of mismatch repair proteins MLH1, MSH2, MSH6 or PMS2 by immunohistochemistry. [facility] 02/28/2022 1048 Local . 01 Electronically signed: . Aimee Luna MD, Pathologist NPI- [id number] . 01 Gross description: . Received in formalin labeled with the patient's name and right colon and consists of an ileocecectomy specimen with the fragment of ileum measuring 2.3 cm in length and 2.2 cm in diameter, and the fragment of colon measuring 20.5 cm in length and 3.2 cm in diameter. Both proximal and distal margins are closed with joshua, which are removed. The proximal margin is inked blue. The distal margin is inked black. The mesenteric margin is inked green. The attached mesentery extends up to 7.5 cm from the bowel. The mucosa is hernadez-monteiro and significant for a large hemorrhagic area at the base of the cecum measuring 8.5 cm in diameter. A pink-monteiro, irregular, firm area is noted attached to the hemorrhagic area of cecum and is adjacent to a full thickness defect measuring 1.2 cm in greatest dimension. No appendix is identified. The hemorrhagic and nodular surface is inked orange. Opening the specimen reveals the grider of the cecum to be diffusely thickened at the area of the full thickness defect with the pink nodular structure appearing to be extend into the wall. No lesions or diverticula are identified on the mucosa, which is pink-monteiro and velvety with normal appearing folds. Within the lumen are multiple loose monteiro villiform structures aggregating to 3.5 x 3.2 x 0.8 cm. The grider range from 0.3 cm thick at the normal appearing mucosa to 1.1 cm thick at the area of full thickness defect. The thickened area measures 3.2 cm from the ileal margin and greater than 5 cm from all remaining margins. No additional lesions are identified. . Palpating the attached mesentery reveals twenty pink-monteiro lymph node candidates ranging from 0.3 to 1.7 cm in greatest dimension. . Clinical Data Management Director sections are submitted as follows; A1: Proximal margin en face. A2-A3: Distal margin en face. A4: Clinical Data Management Director radial margin en face. A5-A8: Area of thickened cecal wall. A9: Villiform luminal structure. A10: Ileocecal valve. A11: Normal mucosa. A12: Single lymph node candidate; bisected. A13: Two lymph node candidates; bisected; differentially inked blue and black. A14: Two lymph node candidates; bisected; differentially inked blue and black. A15: Three intact lymph node candidates. A16: Three intact lymph node candidates. A17: Two intact lymph node candidates. A18: Three intact lymph node candidates. A19: Four intact lymph node candidates. ([id number]) /[facility] 02/23/2022 1703 Local . 01 Microscopic: . A5. IMMUNOHISTOCHEMISTRY TESTING FOR MISMATCH REPAIR PROTEINS: . MLH1: Intact nuclear expression. MSH2: Intact nuclear expression. MSH6: Intact nuclear expression. PMS2: Intact nuclear expression. Background nonneoplastic tissue/internal control with intact nuclear expression. . INTERPRETATION: No loss of nuclear expression of MMR proteins: low probability of microsatellite instability-high (MSI-H)* . * There are exceptions to the above IHC interpretations. These results should not be considered in isolation, and clinical correlation with genetic counseling is recommended to assess the need for germline testing. . * This test was developed and its performance characteristics determined by [employer]. It has not been cleared or approved by the U.S. Food and Drug Administration. The FDA has determined that such clearance or approval is not necessary. This test is used for clinical purposes. It should not be regarded as investigational or for research. . 01 Pathologist provided ICD-10: C18.9 . 01 CPT . 079524, [id number], [id number] Specimen Comment: A courtesy copy of this report has been sent to [phone] Performed at: 01 [facility] [address] [place] [address], [place], [place] [id number] MD Rome Farnsworth MD Phone: [phone]
[2022-02-22] MEDS: LACTATED RINGERS 1,000 ML 100 ML IV ×3 (07:13→13:01)
--- NOTE | 2022-02-22 08:31 | PM.PREOP ---
Pre-operative Note Interval Note History & Physical reviewed/Exam performed by Physician: Yes Changes to H&P: Yes H&P completed within 30 days and has changed as indicated here:: I discussed with the patient that I had reviewed both her CT A/P and Abdominal MRI once again with radiology. She has a known resolving abscess of the LLQ which initially had been thought secondary to a gynecologic process. However, given its close proximity to the cecum, which is left sided secondary to malrotation history of omphalocele, raises the possibility the the abscess is secondary to perforated colon cancer. No change in surgical plan, findings were discussed with the patient.
[2022-02-22] MEDS: APREPITANT 40 MG CAPSULE PO (09:26)
[2022-02-22] MEDS: PIPERACILLIN/TAZO 3.375 GM in SODIUM CHLORIDE 0.9% 100 ML IV ×2 (10:22→19:02)
[2022-02-22] MEDS: BUPIVACAINE 0.25% (PF) VIAL 30 ML INJ (10:52)
--- NOTE | 2022-02-22 10:59 | SUR.OPER ---
Lithotomy on padded OR bed. Sunman Pad Positioner under torso. Head on pillow, arms padded and tucked at sides. Legs secured in padded yellow fins stirrups.
[2022-02-22] MEDS: fentaNYL 100 MCG/2 ML INJ IV ×2 (13:00→13:09)
[2022-02-22] MEDS: KETOROLAC 30 MG/ML VIAL IV ×2 (13:03→19:33)
[2022-02-22] MEDS: OXYCODONE/ACETAMINOPHEN 5/325 TABLET 1 TAB PO (13:07)
[2022-02-22] MEDS: MIDAZOLAM 2 MG/2 ML VIAL 1 MG IV (13:33)
--- NOTE | 2022-02-22 14:01 | SUR.PHASEI ---
02/22/22-1400-vss. Bps running 92/55-96/55 after versed. Pt smiling and in better spirits post versed. pain level 2-3/10 and tolerable. abdominal aquacell dressing cdi. kp with scant yellow cloudy urine ( has UTI reported by preop RN). abdomen soft to palpate. Report to floor RNLakeisha, by phone and sbar done. tolerated sips of water. spinal resolving more, still weak in legs, but able to bend knees, feel sensation to toes-still numb/tingling. Meets criteria for transfer. to floor by bed, wearing glasses and holding onto cell phone. bag of clothes with patient to floor. Transferred by 2 fellow RN's to room via hospital bed.
--- NOTE | 2022-02-22 14:31 | PM.OP.1 ---
Operative Date/Time/Diagnoses Date of procedure: 02/22/22 Time of procedure: 14:31 Pre-op diagnosis: Colon cancer Post-op diagnosis: same Procedure & Clinicians Procedure: laparoscopic converted to open right hemicolectomy Same procedure as scheduled: Yes Indications: 31-year-old woman with anemia found to have adenocarcinoma of the cecum on colonoscopy. Staging workup demonstrates no evidence of distant disease or lymphadenopathy. Carmina Gilliam MD assistance was necessary for exposure and creation of the anastamosis. Surgeon: Chandu Wade [employer] Consultant: Carmina Gilliam Anesthesia Type: General Operative Notes Findings: 1. diffuse dense intra-abdominal adhesions from prior laparotomy 2. congenital malrotation 3. perforated cecal tumor 4. multiple firm lymph nodes within the right colonic mesentery 5. no evidence peritoneal carcinomatosis or firm liver masses 6. well perfused ileocolic anastomosis without tension Specimen(s): other ( right colon) Estimated Blood Loss (mL): 100 Procedure in detail: Patient was brought to the operating room placed supine on the table. Bilateral lower extremity compression devices were applied. She received Zosyn prior to skin incision. She was prepped and draped in sterile fashion and a Linn catheter was sterilely placed. Time-out was performed. A infraumbilical incision was made. The fascia was grasped elevated and sharply incised abdomen was entered atraumatically and a 12 mm balloon trocar was then placed. Pneumoperitoneum was established. The laparoscope was introduced and inspection was made. There was no evidence of injury upon entry. There was numerous dense adhesions within the abdomen in 360 degrees. Using the laparoscope some of the adhesions were swept down however despite this we were unable to obtain any adequate safe working space and no additional trocars could be placed under visualization secondary to the degree of adhesive disease. A lower midline incision was made. A extensive lysis of adhesions was performed using sharp dissection. Ultimately, the small bowel was eviscerated. The cecum was identified in the left lower quadrant 9she has malrotation and history of omphalocele) with tattoo ink within the wall. The left ureter was identified by its vermiculation and was swept posteriorly out of harm's way. The cecum was adherent to the left pelvic side wall via the remenants of a abscess rind. There was no significant fluid within the abscess cavity. Using gentle finger fracture the cecum was off the abdominal wall. There is a fungating mass originating from the cecum which perforates the wall. The left fallopian tube and ovary were normal in their appearance and there was no evidence that the abscess had originated from the gynecologic organs. The right colon was then mobilized. The right colon passed through an internal hernia of small bowel and the majority of the right colon was freely mobile given her history of Omphalocele. The terminal ileum was divided with a 75 mm blue staple load TIM. Next the ileocolic vasular pedicle was identified by the a palpation was doubly ligated on the stay side and then divided. Within the right colonic mesentery there were multiple firm lymph nodes. The right colonic mesentery was divided with the LigaSure close to the root of the mesentery. The transverse colon was then freed up to the level of the spleen. The transverse colon was then divided again with a 2nd firing of the TIM stapler. A [id number] functional end-to-end anastomosis was then formed. A colotomy and enterotomy were made the stapler was then passed into the limbs and a common channel was formed. The common channel was inspected, it was hemostatic and widely patent. The common opening was then closed in running fashion using 3-0 PDS suture, 2nd layer with imbricating silk. The anastomosis was widely patent, hemostatic and well perfused. The small bowel was then closely examined and two serosal tears were noted which is a normal occurrence during a lysis of adhesions and the bowel was imbricated using 3-0 silk suture. Returning to the left lower quadrant the abscess was then carefully debrided the abdomen was then lavaged with several liters of sterile water. A 19 Portuguese Feliciano drain was then placed into the left lower quadrant. The abdomen was checked for hemostasis and then the fascia was closed with #1PDS. Subcutaneous tissue closed with Vircyl and skin with Monocryl followed by Dermabond. She tolerated the operation well was extubated and transferred to recovery in stable condition. Complications: none Post-operative Condition: stable Disposition: Acute Care
--- NOTE | 2022-02-22 15:30 | PT-IP ANOTE ---
EMR reviewed. NAC stated that pt just got up to the floor. Checked with pt and requested to do PT tomorrow. informed pt to let the nurse know when she wants to move or even sit up on EOB and pt agreed.
[2022-02-22] MEDS: diphenhydrAMINE 25 MG TABLET PO (18:16)
[2022-02-22] MEDS: ACETAMINOPHEN 325 MG TABLET 650 MG PO (19:00)
[2022-02-23] VITALS (11 sets, daily range): BP systolic 94–111; BP diastolic 50–74; PULSE 62–96; RESP 12–18; TEMP 35.9–36.7; O2SAT 98–100
[2022-02-23] MEDS: ACETAMINOPHEN 325 MG TABLET 650 MG PO ×5 (00:49→22:07)
[2022-02-23] MEDS: KETOROLAC 30 MG/ML VIAL IV ×4 (00:50→19:24)
[2022-02-23] MEDS: PIPERACILLIN/TAZO 3.375 GM in SODIUM CHLORIDE 0.9% 100 ML IV (02:30)
[2022-02-23 06:15] LABS: Add Manual Diff / Slide Review NO; Basophils Absolute Auto 0 /uL (0-100); Basophils Percent Auto 0.6 % (0-2); Eosinophils Absolute Auto 0 /uL (0-450); Eosinophils Percent Auto 0.3 % (2-4); Hematocrit 25.9 % (36-46); Hemoglobin 8.7 g/dL (12.0-16.0); Lymphocytes Absolute Auto 1300 /uL (1100-4500); Lymphocytes Percent Auto 16.1 % (25-40); Mean Corpuscular HGB Conc 33.7 % (30-36); Mean Corpuscular Hemoglobin 25.6 PG (26-34); Monocytes Absolute Auto 700 /uL (0-900); Monocytes Percent Auto 9.3 % (3-14); Neutrophils Absolute Auto 5900 /uL (1500-7000); Neutrophils Percent Auto 73.7 % (50-75); Platelet Count 335 X10^3/uL (150-400)
[2022-02-23 07:09] LABS: BUN Creatinine Ratio 6.1 (6-22); Blood Urea Nitrogen 3 mg/dL (7-17); Calcium 7.7 mg/dL (8.4-10.2); Carbon Dioxide 27 mmol/L (22-32); Chloride 109 mmol/L (98-107); Estimated Glomerular Filt Rate > 60 mL/min (>60); Glucose 84 mg/dL (70-100); HEMOLYSIS < 15 (0-50); Potassium 3.3 mmol/L (3.4-5.1); Sodium 137 mmol/L (137-145)
--- NOTE | 2022-02-23 10:47 | PT.IIE ---
Current Diagnoses Malignant neoplasm of colon, unspecified (02/22/22) Surgery Performed Operation Date: 02/22/22 07:45 Actual Procedures p Laparoscopically Assisted HemiColectomy(Right) - Chandu Wade MD Surgical History (Last Reviewed 02/16/22 @ 09:38 by Chandu Wade MD) Anesthesia History of rhinoplasty (~10/2018) Omphalocele Pectus excavatum (~01/2014) Pectus excavatum (~06/2015) S/P bilateral inguinal hernia repair Status post rhinoplasty (~12/2019) Medical History (Last Updated 02/19/22 @ 13:23 by Christina Parker RN) Abdominal pain Abnormal Pap smear of cervix (~2015) Adenocarcinoma, colon Bilateral inguinal hernia Cardiac arrhythmia 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 Costochondritis COVID-19 virus infection (12/31/21) Episode of syncope (09/2019) Exercise-induced asthma (2013) Fatigue (01/2020) GERD (gastroesophageal reflux disease) GI bleed (07/2021) History of blood transfusion (~1989) Human papilloma virus Intermittent diarrhea Mucus in stool Nasal swelling Normocytic anemia Palpitations Pelvic pain Scoliosis Vaginal spotting Physical Therapy Inpatient Evaluation/Re-Eval M1 PT/OT-IP Prior Functional Status Start: 02/23/22 12:25 Freq: NEEDED Status: Active Protocol: Document 02/23/22 10:47 DLM (Rec: 02/23/22 12:47 DLM [id number]) Medical Review Prior Functional Status Medical History Reviewed Yes Diet/Fluid Consistency Regular Communication WNL Mobility and Gait Independent without device, active in the community Activities of Daily Living and IADL's Independent, cares for one year old baby, 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 0 steps to enter, can stay on first floor of home Employment Status Unemployed Additional Social History Comment Her Mother is coming to town to help after discharge, Spouse is in M2 PT-IP Current Condition Start: 02/23/22 12:25 Freq: NEEDED Status: Active Protocol: Document 02/23/22 10:47 DLM (Rec: 02/23/22 12:47 DLM [id number]) Physical Therapy Current Condition Current Condition Evaluation Date 02/23/22 Treatment Diagnosis lap rashard, cecal tumor, impaired mobility Onset Date 02/22/22 M3 PT-IP Subjective Start: 02/23/22 12:25 Freq: NEEDED Status: Active Protocol: Document 02/23/22 10:47 DLM (Rec: 02/23/22 12:47 DLM [id number]) Subjective Physical Therapy Visit Type Type Initial Evaluation Visit Start Time 10:05 Visit Stop Time 10:47 Total Visit Minutes 42 Number of FIELD EDUCATION DIRECTOR Visits 0 Physical Therapy Visit Comments Patient Comments She sat up edge of bed with nursing but has not been out of bed yet Patient Goals discharge home M4 PT-IP Mobility and Gait Start: 02/23/22 12:25 Freq: NEEDED Status: Active Protocol: Document 02/23/22 10:47 DLM (Rec: 02/23/22 12:47 DL [id number]) PT-Bed Mobility Assessment Rolling Type of Rolling Log Rolling,Roll to Left Level of Assist Independent Supine to Sit Supine to Sit Independent Sit to Supine Sit to Supine Independent Scooting Scooting to Edge of Bed Independent PT-Transfer Assessment Sit to and From Stand Sit to and from Stand Independent Equipment Transfer Assistive Device None Transfers Transfer Destination Chair Transfer Technique Stand Step Pivot Transfer Ability Level of Assist Independent,Use of Upper Extremities Comments Mobility Comments up to recliner Gait Assessment Gait Gait Assistance Required: Independent Distance (Feet) 200 Assistive Devices Assistive Device Gait Belt Gait Deviations General Gait Pattern Decreased Stride Length Factors Limiting Gait Function Factors Limiting Gait Function Decreased Activity Tolerance, Pain Comments Gait Comments slow pace but functional, it gradually improved as she gained confidence and was able to manage her pain Stair Climbing Assessment Evaluation Level of Assist On Stairs Independent Devices Stair Climbing Assistive Devices Left Railing Technique/Endurance Stair Climbing Direction Ascend and Descend Stair Climbing Technique Step Over Step,Step to Step Number of Steps Climbed 3 Query Text: Stair Climbing Set # Repetitions (reps) 1 PT-Balance Assessment Sitting Balance and Reactions Static Sitting Balance Ability Normal Dynamic Sitting Balance Ability Normal Standing Balance and Reactions Static Standing Balance Ability Good Dynamic Standing Balance Ability Good Device Used none M5 PT-IP Objective Assessments Start: 02/23/22 12:25 Freq: NEEDED Status: Active Protocol: Document 02/23/22 10:47 DLM (Rec: 02/23/22 12:47 [facility] [id number]) Orientation Orientation/Cognition Level of Alertness Alert Orientation Name,Age,Birthday,Month,Date, Year,Day of Week,Place, Situation Language Function Ability No Deficits Noted Safety Awareness Understands Safety Issues Memory Description No Deficits Noted Comments she describes feeling emotional about her new diagnosis Gross Range of Motion Upper Extremity ROM Assessment Within Functional Limits Lower Extremity ROM Assessment Within Functional Limits Strength Upper Extremity Strength Assessment Within Functional Limits Lower Extremity Strength Assessment Within Functional Limits Coordination Assessment Gross Coordination Gross Coordination WNL Sensation Assessment Sensation Gross Sensation WNL Muscle Tone Muscle Tone WNL Yes M6 PT-IP Treatment Start: 02/23/22 12:25 Freq: NEEDED Status: Active Protocol: Document 02/23/22 10:47 DLM (Rec: 02/23/22 12:47 [facility] [id number]) Physical Therapy Treatment Education Education Provided Precautions,Safety Other Treatments Other Treatment Performed education for progression of activity at home M7 PT-IP Assessment and Plan Start: 02/23/22 12:25 Freq: NEEDED Status: Active Protocol: Document 02/23/22 10:47 DL (Rec: 02/23/22 12:47 [facility] [id number]) PT Summary Assessment and Plan Potential Rehabilitation Potential Excellent Status of Condition at Evaluation Evolving Summary Impairments Pain,Activity Tolerance Assessment Summary Sydney is alert and resting in bed. She is eager to get dressed. She had dias catheter removed just before this visit. She was able to gradually advance her activity this visit. No light- headedness when up. Initial posture was flexed but this improved as she moved. Educated her in post-op precautions to manage her abdominal pain and avoid over- stressing her surgical area. She progressed to ambulating in the schmidt without a device and going up and down stairs. She was left sitting up in the recliner. She reports good pain control during this visit . She describes 3-4/10 pain in her lower abdominal area. She appears to have good help at home after discharge. No further skilled physical therapy needed at this time. Education and training completed this visit. Recommend she ambulate 2-3 times a day with nursing supervision. Will discharge physical therapy order. Frequency of Treatment Frequency Of Treatment Discharge Treatment Plan Physical Therapy Treatment Plan Bed Mobility Training,Transfer Training,Gait Training,Post Op Education,Discharge Planning Other Recommendations and Next Treatment training completed this visit Focus Precautions Abdominal Surgery Precautions Log Roll,Lifting Restrictions, Gait Belt above Incisional Area Other Precautions PAOLO drain on left side Recommendations To Nursing Amount of Assist Needed Standby Assistance Discharge Recommendations PT Discharge Recommendations Home with Assistance Transportation Needs at Discharge Private Vehicle
[2022-02-23] MEDS: ENOXAPARIN 40 MG/0.4 ML SYRINGE SUBCUT (11:48)
[2022-02-23] MEDS: LACTOBACILLUS ACIDOPHILUS TABLET 1 EACH PO ×2 (11:49→17:55)
[2022-02-23] MEDS: POTASSIUM CHLORIDE IN WATER 10 MEQ/100 ML PIGGYBACK 100 MEQ IV ×4 (12:38→19:23)
[2022-02-23] MEDS: SODIUM CHLORIDE 0.9% 250 ML 21 ML IV (12:43)
[2022-02-23] MEDS: SODIUM CHLORIDE 0.9% FLUSH 10 ML IV (21:18)
[2022-02-24] MEDS: KETOROLAC 30 MG/ML VIAL IV (00:59)
[2022-02-24] MEDS: ACETAMINOPHEN 325 MG TABLET 650 MG PO (05:38)
[2022-02-24 05:43] VITALS: BP 110/71; PULSE 88; RESP 16; TEMP 36.8; O2SAT 99
[2022-02-24 05:45] VITALS: O2SAT 99
[2022-02-24 06:02] LABS: Add Manual Diff / Slide Review NO; Basophils Absolute Auto 0 /uL (0-100); Basophils Percent Auto 0.5 % (0-2); Eosinophils Absolute Auto 200 /uL (0-450); Hematocrit 28.3 % (36-46); Hemoglobin 9.1 g/dL (12.0-16.0); Lymphocytes Absolute Auto 1600 /uL (1100-4500); Mean Corpuscular HGB Conc 32.2 % (30-36); Mean Corpuscular Hemoglobin 24.8 PG (26-34); Mean Corpuscular Volume 76.8 fL (80-100); Monocytes Absolute Auto 500 /uL (0-900); Monocytes Percent Auto 7.8 % (3-14); Neutrophils Absolute Auto 4300 /uL (1500-7000); Neutrophils Percent Auto 64.7 % (50-75); Platelet Count 356 X10^3/uL (150-400); Red Blood Cell Count 3.68 X10^6/uL (4.0-5.2); Red Cell Distribution Width 19.5 % (11.6-14.8); White Blood Cell Count 6.6 X10^3/uL (4.5-11.0)
[2022-02-24 06:06] LABS: BUN Creatinine Ratio 13.6 (6-22); Blood Urea Nitrogen 6 mg/dL (7-17); Calcium 7.8 mg/dL (8.4-10.2); Carbon Dioxide 28 mmol/L (22-32); Chloride 108 mmol/L (98-107); Estimated Glomerular Filt Rate > 60 mL/min (>60); Glucose 86 mg/dL (70-100); HEMOLYSIS < 15 (0-50); Potassium 4.1 mmol/L (3.4-5.1); Sodium 139 mmol/L (137-145)
[2022-02-24 08:19] VITALS: BP 112/58; PULSE 86; RESP 16; TEMP 36.3; O2SAT 100
--- NOTE | 2022-02-24 08:37 | CM.DANOTE ---
Addendum entered by DOROTHY Oro 02/24/22 11:42: ADD: Met w/patient and supportive spouse, their one year old baby in room also; spouse states he will drop their babe off with a friend, seed cone picker family [place] the [place], then come by this afternoon to pick patient up. Discussed home health RN and patient says she will f/u outpatient, no need for HH RN. Home w/supportive family today ANNA MARIE Original Note: Initial DCP Assessment Note Pt is a 31 yo female, resident of [place], now POD#2 from Laparoscopically Assisted HemiColectomy(Right) - by Chandu Wade MD PCP: Shana Gamez Payer: Suzan Downs Reviewed chart, pt lives w/spouse and one year old, spouse active duty . PMH includes anxiety, depression, with recent dx of colon cancer, cecal mass identified via colonoscopy. Patient plans to discharge home w/assist from her mom upon discharge; will sleep on the first floor Patient's diet being advanced, patient consumed %100 of her meals 8.12.22 Patient seen by physical therapy yesterday and motivated to get up to move and return home. Linn removed yesterday No barriers identified at this time to patient's safe discharge home w/family to assist and close outpatient f/u DOROTHY Pope Discharge Planning/Care Management CM Discharge Assessment Start: 02/24/22 08:26 Freq: Status: Active Protocol: Document 02/24/22 08:28 ANNA MARIE (Rec: 02/24/22 08:37 ANNA MARIE [id number]) Discharge Planning Assessment Assigned Tonger DOROTHY Dang DPOA/Assigned Designee Name Anthony Brown, spouse Contact Information [phone] Advance Directives? No History Provided By Patient,Medical Record Prior Living Arrangements House Household Members spouse,children Comment one year old at home w/gma currently Type of transporation used prior to Drives own vehicle admit Independent with ADL's Yes Is patient alert and oriented? Yes Barriers to Discharge No Comment Home w/mother to assist she and one year old. Spouse is active duty (deployed ?) Discharge Plan Home Transportation Arrangement Family Referrals Initiated None needed
[2022-02-24 09:00] VITALS: O2SAT 100
[2022-02-24] MEDS: ENOXAPARIN 40 MG/0.4 ML SYRINGE SUBCUT (09:00)
[2022-02-24] MEDS: LACTOBACILLUS ACIDOPHILUS TABLET 1 EACH PO (09:00)
--- NOTE | 2022-02-24 11:54 | PC.NURSE ---
patient is alert/oriented. voices needs. POD#2- abd is flat, guarded, reports 1/10 pain at rest. has ice pack on, dressing is a CDI island dressing. reports passing gas. appetite is good. surgeon is here to d/c patient, d/c instructions given to patient and reviewed. plans to d/c home after lunch. PIV removed by BASHIR haney
--- NOTE | 2022-02-25 10:31 | PM.DS.1 ---
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 Tumor was found on endoscopy performed secondary to anemia. She presents to the hospital for elective right hemicolectomy. Her history is significant for omphalocele at and malrotation. Discharge Providers Provider Date of admission: 02/22/22 06:38 Discharge Date: 02/24/22 Primary care physician: DESEAN Irby Consults: 02/22/22 12:53 Consult to Physical Therapy Evaluate & Treat Comment: Physician Instructions: Evaluate and Treat Discharge provider: Chandu Wade MD Summary Hospital Course Discharge Diagnosis: Colonic adenocarcinoma Malrotation Hospital Course: The patient underwent a laparoscopic converted to open right hemicolectomy 02/22/2022. She has a history of omphalocele at and intestinal malrotation. Operation was significant for dense intra-abdominal adhesions for which conversion to open operation was necessary. The cecal tumor had perforated through the colonic wall and there was a resolving intra abdominal abscess associated with this process. A drain was left within the collapsed abscess cavity there was no significant fluid or content within the cavity to be sent for culture. She was maintained on IV antibiotics for 48 hours and then this was discontinued. There were no signs of metastatic disease intraoperatively however there were multiple firm lymph nodes. Her postoperative course was unremarkable. At discharge she is afebrile, ambulatory, pain is well controlled with oral medications tolerant of diet and has had return of bowel function. Pathology is pending Time Spent with Patient Time spent: Greater than 30 minutes Exam Vital Signs (past 8 hours): Oxygen Delivery Method Room Air Oxygen Flow Rate 0 Narrative Exam Narrative: General adult woman alert oriented no acute distress thin Chest nonlabored respiration Abdomen soft appropriately tender to palpation. Midline incision clean dry intact. Intra-abdominal drain serosanguineous and removed. 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 Costochondritis COVID-19 virus infection (12/31/21) Episode of syncope (09/2019) Exercise-induced asthma (2013) Fatigue (01/2020) GERD (gastroesophageal reflux disease) GI bleed (07/2021) History of blood transfusion (~1989) Human papilloma virus Intermittent diarrhea Mucus in stool Nasal swelling Normocytic anemia Palpitations Pelvic pain Scoliosis Vaginal spotting Surgical History Anesthesia History of rhinoplasty (~10/2018) Omphalocele Pectus excavatum (~01/2014) Pectus excavatum (~06/2015) S/P bilateral inguinal hernia repair Status post rhinoplasty (~12/2019) Family History Father Heavy smoker Hypertension Hyperlipidemia Mental health problem AA (alcohol abuse) Asperger syndrome Mother Autoimmune disease Hereditary malabsorption of folic acid Mixed connective tissue disease Sister Substance abuse Mental health problem AA (alcohol abuse) Borderline personality disorder Grandfather Hypertension Hyperlipidemia Congestive heart failure Grandmother Celiac disease Diabetes mellitus Brother Depression Substance abuse Asperger syndrome Grandmother No problems noted. Grandfather Myocardial infarction AA (alcohol abuse) Family/Other Liver cancer Problem related to lifestyle Social History marital status: household members: spouse and children lives independently: Yes pets and animals: No education level: college current occupational exposures/hazards: No katheryn/taoist: Pentecostal special katheryn needs: No Smoking Status: Never smoker second hand exposure: No alcohol intake: former substance use type: does not use Discharge Plan Discharge Plan Patient Disposition: Home Provider Discharge Comment: -Okay to shower today -Do not submerge wounds in water until seen in follow-up. -No lifting >20 lbs x 4 weeks. -Walking only for exercise for 4 weeks. -No driving while taking narcotics. Nursing Discharge Comment: return to ER/call 911 if temp/fever > 101.9F call MD/surgeon if having abdominal pain not relieved by pain meds, ice, movement, rest. call MD/surgeon if wound shows signs of infection: redness, swelling/pain, discharge, (yellow/green/bloody or foul smelling) take meds as ordered, these were faxed to [facility] today. recommended to continue taking probiotic (acidophilus) -this is available OTC. monitor bowel movements, ensure you are passing gas every day. if no bowel movement >3 days, or not passing gas: contact MD. ice packs will be helpful for healing. monitor drain site, clean site w/ normal saline daily, apply dry gauze, secure w/ tape. advance to a bandaid when drainage decreases. it was a pleasure to be your nurse today, i hope you enjoy the rest of your day, and (no lifting > 20 pounds) Discharge orders & Medications Prescriptions: New ibuprofen 200 mg tablet 400 mg PO Q6H Qty: 60 0RF oxycodone 5 mg tablet 5 mg PO Q6H PRN (Reason: pain) Qty: 20 0RF acetaminophen [Tylenol] 325 mg capsule 650 mg PO QID PRN (Reason: pain) Qty: 60 0RF Continued albuterol sulfate 90 mcg/actuation HFA aerosol inhaler 1 inh INHALATION Q6H PRN (Reason: shortness of breath or wheezing) Qty: 8.5 3RF Discontinued ciprofloxacin HCl [Cipro] 500 mg tablet 500 mg PO Q12H Qty: 6 0RF Label Comments: last dose taken this am Rx Instructions: Take 1 tab every 12 hours (2 doses today to prevent interaction with Erythromycin) x3 days metronidazole 500 mg tablet 1,000 mg PO .COMPLEX Qty: 4 0RF Rx Instructions: 1,000 mg PO 1 g PO; TAKE 2 tabs at 2 PM, and 10 PM the day prior to surgery; Follow up/Referrals: Chandu Wade MD [Physician] - 2 Weeks Diet/Activity/Treatments Diet comment: Low fiber diet Skin/Wound/Dressing Care Report to your healthcare provider any signs of infection, such as:: chills, fever, increased pain, unusual drainage and unusual redness Visit Report/Discharge Packet Stand Alone Forms: Surgery Discharge Discharge Data Primary Care Provider: Shana Gamez VTE Deep Vein Thrombosis/Pulmonary Embolism Present on Admission: No
== END 2022-02-24 13:20 | disposition home or self-care (01) | DRG 329 ==
PROVIDERS: Admitting Provider Surgery; PCP Nurse Practitioner; Referring Provider Surgery; Visit Provider Surgery
PROC: 0DTE0ZZ Resection of Large Intestine, Open Approach (ICD-10-PCS; principal; 2022-02-22 09:45)
DX: C18.0 Malignant neoplasm of cecum (principal); K63.1 Perforation of intestine (nontraumatic); Q43.3 Congenital malformations of intestinal fixation; C77.2 Secondary and unspecified malignant neoplasm of intra-abdominal lymph nodes; K66.0 Peritoneal adhesions (postprocedural) (postinfection); D50.9 Iron deficiency anemia, unspecified; Z20.822 Contact with and (suspected) exposure to COVID-19
CPT/HCPCS: 36415; 44160; 80048; 85025; 97162; 97530; J1650; J1885; J2250; J2274; J2543; J2704; J3010; J8501

== ENCOUNTER → 2022-02-27 11:05 | Outpatient (CLI) | payer OTHER, SELFPAY ==
[2022-02-27 16:16] LABS: Appearance Urine UA CLEAR; Bilirubin Urine UA NEGATIVE (NEGATIVE); Color Urine UA YELLOW; Glucose Urine UA NEGATIVE (Negative); Ketones Urine UA NEGATIVE (NEGATIVE); Leukocyte Esterase Urine UA NEGATIVE (NEGATIVE); Nitrite Urine UA NEGATIVE (Negative); Occult Blood Urine UA TRACE-INTACT (Negative); Protein Urine UA NEGATIVE (Negative); Specific Gravity Urine UA <=1.005 (1.000-1.035); Urobilinogen Urine UA 0.2 E.U./dL (0.2)
[2022-02-27 17:00] LABS: Bacteria Urine None Seen; Culture Indicated Urine Cult Not Indicated; RBC Urine 0-1/HPF (0-5/HPF); Squamous Epithelial Cell Urine 0-1 /HPF (0-5/HPF); WBC Urine None Seen (0-5/HPF)
== END ==
PROVIDERS: PCP Nurse Practitioner; Referring Provider Surgery; Visit Provider Surgery
DX: N39.0 Urinary tract infection, site not specified (principal)
CPT/HCPCS: 81001

== ENCOUNTER → 2022-03-14 09:08 | Outpatient (CLI) | payer OTHER, SELFPAY | PROVIDERS: PCP Nurse Practitioner; Visit Provider Physician Assistant | DX: R30.0 Dysuria (principal) | CPT/HCPCS: 87086 ==

== ENCOUNTER 2022-03-20 13:16 | Day surgery (SDC) | payer OTHER, SELFPAY ==
--- NOTE | 2022-03-20 | DI.RAD.S_ITS ---
PROCEDURE: XR CHEST 1V INDICATIONS: PORT PLACEMENT TECHNIQUE: One view of the chest was acquired. COMPARISON: [facility], CR, XR CHEST 1V, 10/30/2021, 2:45. FINDINGS: Surgical changes and devices: There is a right Port-A-Cath, the tip of which is projected over the SVC. Lungs and pleura: Lungs are clear. No pleural effusions or pneumothorax. Mediastinum: Mediastinal contours appear normal. Heart size is normal. Bones and chest wall: No suspicious bony lesions. Overlying soft tissues appear unremarkable. IMPRESSION: No acute cardiopulmonary findings. Dictated by: Kiki Villagran M.D. on 03/20/2022 at 15:37 Approved by: Kiki Villagran M.D. on 03/20/2022 at 15:38
[2022-03-20 07:18] VITALS: BMI 19.4
[2022-03-20 13:35] VITALS: BP 113/76; PULSE 84; RESP 16; TEMP 36.4; O2SAT 100; BMI 19.4
[2022-03-20] MEDS: LACTATED RINGERS 1,000 ML 100 ML IV (13:47)
[2022-03-20 13:57] LABS: COVID19 -Nasal RAPID Negative (Negative)
--- NOTE | 2022-03-20 13:59 | PM.PREOP ---
Pre-operative Note Interval Note History & Physical reviewed/Exam performed by Physician: Yes Changes to H&P: No H&P completed within 30 days and has changed as indicated here:: Here for port a cath placement locally advanced colon cancer. Overview of the procedure was discussed with patient at bedside. Risks including bleeding infection cancel device failure pneumothorax, embolism and anesthetic complication or discussed. Questions have been answered she is in agreement with this plan.
--- NOTE | 2022-03-20 14:04 | P.OP_ITS ---
Operative Date/Time/Diagnoses Date of procedure: 03/20/22 Time of procedure: 14:04 Pre-op diagnosis: Locally advanced colon cancer Venous insufficiency Post-op diagnosis: same Procedure & Clinicians Procedure: Port a catheter placement with ultrasound guidance Same procedure as scheduled: Yes Indications: Locally advanced colon cancer Venous insufficiency Surgeon: Chandu Wade Click Yes if Unassisted: Yes Anesthesia Type: General Operative Notes Findings: Tip of the catheter within the SVC Specimen(s): none sent Estimated Blood Loss (mL): 10 Procedure in detail: Patient was brought to the operating room placed supine on table. Bilateral lower extremity compressive devices were applied. General anesthesia was induced and she was intubated with an LMA. She was then prepped and draped in usual sterile fashion. Time-out was performed ensure the correct patient procedure necessary equipment within the operating room. She received 2 g of Ancef prior to incision. Under ultrasound guidance the right internal jugular vein was accessed under direct visualization. The guidewire was then threaded through the needle. Its placement was then confirmed using fluoroscopy. The dilator was then placed over the guidewire. The catheter was then inserted through the sheath. Placement was again confirmed with fluoroscopy. A subcutaneous pocket was made in the right chest wall. The tunneler device was used to move the catheter from the neck to the chest pocket. The port was attached after it was primed with heparined saline. The port was tested to ensure that it flushed easily and had good blood return. The port was then secured to the underlying fascia using interupted Ethibond suture. Hemostasis was achieved. The wound was irrigated with sterile saline. The subcutaneous tissues were reapproximated with the 3 0 Vicryl and then skin closed with 4-0 Monocryl. The skin was sealed with Dermabond. Patient tolerated procedure well. The sponge and instrument count at the end operation was correct. Patient emerged from general anesthesia was extubated and taken to the p ostoperative care unit in stable condition Complications: none Post-operative Condition: stable Disposition: same day surgery Plan for aftercare: CXR pending
--- NOTE | 2022-03-20 14:09 | SUR.OPER ---
Supine on padded OR bed, head on pillow, arms padded and tucked at sides, legs uncrossed, safety belt at thigh, tape over blanket over lower legs .
[2022-03-20] MEDS: CEFAZOLIN 2 GM/100 ML PREMIX 100 ML IV (14:15)
[2022-03-20] MEDS: BUPIVACAINE 0.25% (PF) VIAL 30 ML INJ (14:48)
[2022-03-20] MEDS: HEPARIN 5,000 UNIT, SODIUM CHLORIDE 0.9% 50 ML IV (14:48)
[2022-03-20 15:04] VITALS: BP 114/61; PULSE 68; RESP 12; O2SAT 98
[2022-03-20 15:09] VITALS: BP 113/74; PULSE 80; RESP 16; TEMP 36.2; O2SAT 98
[2022-03-20 15:19] VITALS: BP 110/61; PULSE 64; RESP 16; O2SAT 98
[2022-03-20 15:24] VITALS: BP 111/76; PULSE 71; RESP 18; O2SAT 97
[2022-03-20 15:30] VITALS: BP 114/72; PULSE 72; RESP 16; TEMP 36.6; O2SAT 97
--- NOTE | 2022-03-20 15:44 | SUR.PHASEI ---
1520-cxr done,Dr Wade reviewed and stated good'.
== END 2022-03-20 16:20 | disposition home or self-care (01) ==
PROVIDERS: PCP Nurse Practitioner; Referring Provider Surgery; Visit Provider Surgery
PROC: (CPT 36561; principal; 2022-03-20 14:45)
DX: C18.9 Malignant neoplasm of colon, unspecified (principal)
CPT/HCPCS: 36561; 71045; 76000; 82962; 87635; C9803; J0690; J1100; J1644; J2250; J2405; J2704; J3010; J3490

== ENCOUNTER → 2022-06-11 09:04 | Outpatient (CLI) | payer OTHER, SELFPAY ==
--- NOTE | 2022-06-11 | DI.CT.S_ITS ---
PROCEDURE: CT CHEST ABD PEL W CON INDICATIONS: Malignant neoplasm of colon, unspecified TECHNIQUE: After the administration of oral and intravenous contrast, axial sections acquired from the supraclavicular neck to the pubic symphysis. Coronal and sagittal reformats were performed. For radiation dose reduction, the following was used: automated exposure control, adjustment of mA and/or kV according to patient size. COMPARISON: [facility], CT, CT CHEST ABDOMEN PELVIS WITH CONTRAST, 02/09/2022, 16:12. FINDINGS: Image quality: Excellent. CHEST: Lower Neck: No enlarged lymph nodes. Thyroid: Within normal limits. Axillae: No enlarged lymph nodes. Chest Wall: Right chest wall port a catheter is present, tip of which is in the lower SVC. Lungs and Airways: No consolidation or suspicious nodules. Pleura: No pneumothorax or pleural effusions. Heart: Heart size is normal. No pericardial effusion. Thoracic Vessels: The aorta and pulmonary arteries demonstrate normal size. Mediastinum and Leila: No enlarged lymph nodes. Esophagus: No wall thickening. No hiatal hernia. ABDOMEN: Liver: Unremarkable. Gallbladder: Unremarkable. Biliary ducts: Unremarkable. Pancreas: Unremarkable. Spleen: Unremarkable. Adrenal Glands: Unremarkable. Kidneys and Ureters: Unremarkable. Stomach and Bowel: Stomach, small bowel loops, and colon are unremarkable. Peritoneum: No abnormal intraperitoneal fluid. No free air. Ventral Wall: No hernia. Abdominal Nodes: No retroperitoneal or mesenteric adenopathy by size criteria. Vessels: Aorta and inferior vena cava are normal in size. PELVIS: Pelvic Organs: Unremarkable. Bladder: Unremarkable. Pelvic Nodes: No enlarged lymph nodes. Miscellaneous: No inguinal hernias are seen. Bones: Unremarkable. IMPRESSION: No evidence of malignancy. Dictated by: Naseem Chi M.D. on 06/11/2022 at 12:02 Transcribed by: JN on 06/11/2022 at 12:04 Approved by: Naseem Chi M.D. on 06/11/2022 at 16:29
== END ==
PROVIDERS: PCP Nurse Practitioner; Referring Provider Physician Assistant Medical; Visit Provider Physician Assistant Medical
DX: C18.9 Malignant neoplasm of colon, unspecified (principal)
CPT/HCPCS: 71260; 74177; Q9967

== ENCOUNTER → 2022-06-27 15:54 | Outpatient (CLI) | payer OTHER, SELFPAY ==
[2022-06-27 19:30] LABS: Sample 1 Time 1
[2022-06-27 19:31] LABS: Occult Blood 1 Negative (Negative); Occult Blood 2 Negative (Negative); Occult Blood 3 Negative (Negative); Sample 2 time 2; Sample 3 time 3
== END ==
PROVIDERS: PCP Nurse Practitioner; Referring Provider Nurse Practitioner; Visit Provider Nurse Practitioner
DX: K92.1 Melena (principal)
CPT/HCPCS: 82270

== ENCOUNTER 2022-07-02 12:03 | Emergency (ER) | payer OTHER, SELFPAY ==
[2022-07-02] VITALS (10 sets, daily range): BP systolic 98–136; BP diastolic 60–99; PULSE 96–110; RESP 15–21; TEMP 37.2; O2SAT 95–100
--- NOTE | 2022-07-02 13:29 | PC.NURSE ---
pt was at chemo appointment when she had a syncopal episode. oncology nurses gave benadryl, and solumedrol for prophylaxis and brought patient to ER. Pt states she normally feels a little dizzy and lightheaded when the infusion begin. this is her 8th infusion. she also has trigeminal PVCs normally.
--- NOTE | 2022-07-02 13:35 | ED_ITS ---
HPI - Allergic Reaction General Chief complaint: Altered Mental Status Stated complaint: Allergic reaction Time Seen by Provider: 07/02/22 12:07 Source: patient and EMS Mode of arrival: Wheelchair History of Present Illness HPI narrative: Patient is a 32-year-old female currently receiving her 8th infusion of FOLFOX started having burning in her tongue and then all over her body. She was noted to have frequent PVCs on her EKG she was given Solu-Medrol and sent to the ED. Also her blood pressure decreased but improved with fluids. She has no hives tongue swelling lip swelling or other allergic symptoms. Blood work from earlier today was reassuring. Related Data Home Medications Medication Instructions Recorded Confirmed Lactobacillus acidophilus 10 10,000 mmu cells PO DAILY 05/03/22 06/19/22 billion cell capsule (Probiotic) loperamide 2 mg capsule 2 mg PO Q6H PRN Diarrhea 05/03/22 06/19/22 ondansetron HCl 8 mg tablet 8 mg PO Q12H PRN Nausea 05/03/22 06/19/22 prochlorperazine maleate 10 mg 10 mg PO BID PRN Nausea 05/03/22 06/19/22 tablet (Compazine) Previous Rx's Medication Instructions Recorded acetaminophen 325 mg capsule 650 mg PO QID PRN pain #60 caps 02/23/22 (Tylenol) ibuprofen 200 mg tablet 400 mg PO Q6H #60 tabs 02/23/22 fluorouracil 2.5 gram/50 mL See Rx Instructions .Route 05/03/22 intravenous solution .COMPLEX CHEMOTHERAPY #1 device fluorouracil 2.5 gram/50 mL See Rx Instructions .Route 05/03/22 intravenous solution .COMPLEX CHEMOTHERAPY #1 device lidocaine-prilocaine 2.5 %-2.5 % See Rx Instructions .Route 05/21/22 topical cream .COMPLEX port access #30 grams fluorouracil 2.5 gram/50 mL See Rx Instructions .Route 05/31/22 intravenous solution .COMPLEX CHEMOTHERAPY #1 device Allergies Allergy/AdvReac Type Severity Reaction Status Date / Time latex Allergy Intermediate rash Verified 06/19/22 15:26 Review of Systems Review of Systems Narrative: GENERAL: Denies chills,fever HEENT: See HPI RESPIRATORY: Denies dyspnea, cough, wheezing CARDIOVASCULAR: See HPI GASTROINTESTINAL: Denies nausea, vomiting MUSCULOSKELETAL: Denies extremity pain, injury SKIN: No rash, no laceration, no pruritus NEUROLOGIC: Denies weakness, dizziness, headache, numbness 8 point review of systems is negative except for those stated above and HPI Patient History Medical History Abdominal pain Abnormal Pap smear of cervix (~2015) Adenocarcinoma, colon Bilateral inguinal hernia Cardiac arrhythmia 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 Costochondritis COVID-19 virus infection (12/31/21) Episode of syncope (09/2019) Exercise-induced asthma (2013) Fatigue (01/2020) GERD (gastroesophageal reflux disease) GI bleed (07/2021) History of blood transfusion (~1989) Human papilloma virus Intermittent diarrhea Mucus in stool Nasal swelling Normocytic anemia Palpitations Pelvic pain Primary adenocarcinoma of ascending colon Scoliosis Vaginal spotting Surgical History Anesthesia History of rhinoplasty (~10/2018) Hx of right hemicolectomy (02/22/22) Omphalocele Pectus excavatum (~01/2014) Pectus excavatum (~06/2015) S/P bilateral inguinal hernia repair Status post rhinoplasty (~12/2019) Family History Father Heavy smoker Hypertension Hyperlipidemia Mental health problem AA (alcohol abuse) Asperger syndrome Mother Autoimmune disease Hereditary malabsorption of folic acid Mixed connective tissue disease Sister Substance abuse Mental health problem AA (alcohol abuse) Borderline personality disorder Grandfather Hypertension Hyperlipidemia Congestive heart failure Grandmother Celiac disease Diabetes mellitus Brother Depression Substance abuse Asperger syndrome Grandmother No problems noted. Grandfather Myocardial infarction AA (alcohol abuse) Family/Other Liver cancer Problem related to lifestyle Social History marital status: household members: spouse and children lives independently: Yes pets and animals: No education level: college current occupational exposures/hazards: No katheryn/christianity: Cheondoism special katheryn needs: No Smoking Status: Never smoker second hand exposure: No alcohol intake: former substance use type: does not use Smoking Status: Never smoker alcohol intake frequency: 0-2 drinks per day Substance Use Type: does not use Exam Initial Vital Signs Initial Vital Signs: Vital Signs Pulse Rate 99 H 07/02/22 12:05 Respiratory Rate 17 12/19/22 12:05 Pulse Oximetry 100 07/02/22 12:05 GENERAL: Alert thin 32-year-old female HEENT: Head atraumatic,EOMI, pupils reactive, face symmetric, moist mucous membranes CARDIOVASCULAR: Regular rate and rhythm without murmurs, rubs or gallops. RESPIRATORY: Breath sounds equal bilaterally, no wheezes rales or rhonchi. ABDOMEN: Soft, nontender. Normoactive bowel sounds all 4 quadrants. No guarding or rebound. EXTREMITIES: Normal range of motion, no clubbing or edema. Neurovascularly intact NEUROLOGICAL: Alert and oriented x4.Normal gait and speech. SKIN: Warm, dry, no laceration, no petechiae, no rashes or lesions. Course Orders Ordered: ED Orders 07/02/22 11:36 EKG-12 Lead Routine 07/02/22 14:30 CBC Auto Diff [Complete Blood Count AUTO DIFF] Stat CMP [Comprehensive Metabolic Panel] Stat Troponin & CK Cardiac Panel Stat Vital Signs Vital signs: Vital Signs - 8 hr 07/02/22 12:07 07/02/22 12:05 07/02/22 12:30 Temperature 98.9 F Pulse Rate 96 H 99 H 97 H Respiratory Rate 18 17 15 Blood Pressure 136/99 H Pulse Oximetry 100 100 100 Oxygen Delivery Method Room Air 07/02/22 13:00 07/02/22 13:00 07/02/22 13:30 Temperature Pulse Rate 101 H Respiratory Rate 18 Blood Pressure 108/71 105/68 Pulse Oximetry 100 Oxygen Delivery Method 07/02/22 13:30 07/02/22 14:00 07/02/22 14:00 Temperature Pulse Rate 100 H 104 H Respiratory Rate 15 20 Blood Pressure 107/70 Pulse Oximetry 98 97 Oxygen Delivery Method 07/02/22 14:30 07/02/22 14:30 07/02/22 15:00 Temperature Pulse Rate 109 H Respiratory Rate 17 Blood Pressure 107/67 107/71 Pulse Oximetry 96 Oxygen Delivery Method 07/02/22 15:00 07/02/22 15:30 07/02/22 15:30 Temperature Pulse Rate 110 H 103 H Respiratory Rate 21 21 Blood Pressure 98/60 Pulse Oximetry 95 Oxygen Delivery Method 07/02/22 15:44 07/02/22 15:44 Temperature Pulse Rate 101 H Respiratory Rate 18 Blood Pressure 109/62 Pulse Oximetry Oxygen Delivery Method MDM - Allergic Reaction Lab Data Result diagrams: 07/02/22 14:30 07/02/22 14:30 Labs: Lab Results 07/02/22 07/02/22 Range/Units 14:30 14:30 WBC 10.4 D (4.5-11.0) X10^3/uL RBC 4.33 (4.0-5.2) X10^6/uL Hgb 12.5 (12.0-16.0) g/dL Hct 37.0 (36-46) % MCV 85.5 (80-100) fL MCH 28.8 (26-34) PG MCHC 33.7 (30-36) % RDW 20.5 H (11.6-14.8) % Plt Count 205 (150-400) X10^3/uL Neut % (Auto) 94.8 H D (50-75) % Lymph % (Auto) 3.6 L D (25-40) % [place] % (Auto) 1.4 L (3-14) % Eos % (Auto) 0.1 L (2-4) % Baso % (Auto) 0.1 (0-2) % Neut # (Auto) 9900 H (9582-5570) /uL Lymph # (Auto) 400 L (6209-5372) /uL [place] # (Auto) 100 (0-900) /uL Eos # (Auto) 0 (0-450) /uL Baso # (Auto) 0 (0-100) /uL RBC Morphology See below Anisocytosis 1+ H Sodium 137 (137-145) mmol/L Potassium 3.7 (3.4-5.1) mmol/L Chloride 107 (98-107) mmol/L Carbon Dioxide 20 L (22-32) mmol/L BUN 6 L (7-17) mg/dL Creatinine 0.41 L (0.52-1.04) mg/dL Estimated GFR > 60 (>60) mL/min BUN/Creatinine Ratio 14.6 (6-22) Glucose 123 H (70-100) mg/dL Calcium 8.5 (8.4-10.2) mg/dL Total Bilirubin 0.3 (0.2-1.3) mg/dL AST 32 (14-36) IU/L ALT 35 H (<35) IU/L Alkaline Phosphatase 132 H (38-126) U/L Total Creatine Kinase 39 (30-135) U/L CK-MB (CK-2) TNP CK-MB (CK-2) Rel Index TNP Troponin I < 0.012 (0.01-0.034) ng/mL Total Protein 7.2 (6.3-8.2) g/dL Albumin 3.8 (3.5-5.0) g/dL Globulin 3.4 (1.7-4.1) g/dL Albumin/Globulin Ratio 1.1 (1.0-2.8) ECG Data Interpretation: Normal sinus rhythm rate 95 HI interval 126 QTC 464 QRS 90 with frequent PVCs. Previous EKGs from before today do not show PVCs. Although patient reports multiple PVCs MDM Narrative Medical decision making narrative: Patient continues to have frequent PVCs but is completely asymptomatic. She reports history of PVCs. Blood work is overall reassuring. I discussed with Dr. Bryson oncology in regards to her continuous infusion and further chemotherapy. At this point he would like to hold off and wait. Patient is extremely disappointed by this news but understands Blood work does not show any electrolyte abnormality she is not septic. Considered giving Lopressor if she was symptomatic her blood pressure is slightly on the lower end and she is not symptomatic this time. She certainly has no sign of anaphylaxis or severe allergic reaction. Patient Oncology to determine further medication Discharge Plan Departure Patient Disposition: Home Clinical Impression: Drug reaction, Asymptomatic PVCs Activity Restrictions/Additional Instructions: *You have been diagnosed with PVCs, possible drug reaction *What to do: At this time please discuss with your oncologist about further treatment. There are some other options. However let us give your heart a little rest. *Continue to take medications as directed *Follow up with your primary care provider in 2-3 days or call [phone] *Return to ER if you should have chest pain palpitations dizziness lightheadedness or any new, worsening or concerning symptoms Prescriptions: No Action loperamide [Imodium] 2 mg Capsule 2 mg PO Q6H PRN (Reason: Diarrhea) ondansetron HCl [Zofran] 8 mg Tablet 8 mg PO Q12H PRN (Reason: Nausea) prochlorperazine maleate [Compazine] 10 mg Tablet 10 mg PO BID PRN (Reason: Nausea) Probiotic 10 billion cell Capsule 10,000 mmu cells PO DAILY fluorouracil 2.5 gram/50 mL Solution See Rx Instructions .ROUTE .COMPLEX Qty: 1 0RF Rx Instructions: 2400 mg/m2 continuous infusion over 46 hours fluorouracil 2.5 gram/50 mL Solution See Rx Instructions .ROUTE .COMPLEX Qty: 1 0RF Rx Instructions: 2400 mg/m2 continuous infusion over 46 hours lidocaine-prilocaine 2.5-2.5 % Cream See Rx Instructions .ROUTE .COMPLEX Qty: 30 4RF Rx Instructions: Apply to the skin over the port at least 60-90 minutes before the planned use of the port. Cover the cream with a small piece of plastic wrap and leave in place until the port is accessed fluorouracil 2.5 gram/50 mL Solution See Rx Instructions .ROUTE .COMPLEX Qty: 1 0RF Rx Instructions: 2400 mg/m2 continuous infusion over 46 hours ibuprofen 200 mg tablet 400 mg PO Q6H Qty: 60 0RF acetaminophen [Tylenol] 325 mg capsule 650 mg PO QID PRN (Reason: pain) Qty: 60 0RF Referrals: Shana Gamez ARNP [Primary Care Provider] - Visit Report Forms: Patient Portal/API
[2022-07-02 14:46] LABS: Add Manual Diff / Slide Review NO; Basophils Absolute Auto 0 /uL (0-100); Basophils Percent Auto 0.1 % (0-2); Eosinophils Absolute Auto 0 /uL (0-450); Eosinophils Percent Auto 0.1 % (2-4); Hemoglobin 12.5 g/dL (12.0-16.0); Lymphocytes Absolute Auto 400 /uL (1100-4500); Lymphocytes Percent Auto 3.6 % (25-40); Mean Corpuscular HGB Conc 33.7 % (30-36); Mean Corpuscular Hemoglobin 28.8 PG (26-34); Mean Corpuscular Volume 85.5 fL (80-100); Monocytes Absolute Auto 100 /uL (0-900); Monocytes Percent Auto 1.4 % (3-14); Neutrophils Absolute Auto 9900 /uL (1500-7000); Neutrophils Percent Auto 94.8 % (50-75); Platelet Count 205 X10^3/uL (150-400); Red Blood Cell Count 4.33 X10^6/uL (4.0-5.2); Red Cell Distribution Width 20.5 % (11.6-14.8); White Blood Cell Count 10.4 X10^3/uL (4.5-11.0)
[2022-07-02 14:47] LABS: Alanine Aminotransferase 35 IU/L (<35); Albumin 3.8 g/dL (3.5-5.0); Albumin Globulin Ratio 1.1 (1.0-2.8); Alkaline Phosphatase 132 U/L (38-126); Aspartate Aminotransferase 32 IU/L (14-36); BUN Creatinine Ratio 14.6 (6-22); Bilirubin Total 0.3 mg/dL (0.2-1.3); Blood Urea Nitrogen 6 mg/dL (7-17); Calcium 8.5 mg/dL (8.4-10.2); Carbon Dioxide 20 mmol/L (22-32); Chloride 107 mmol/L (98-107); Creatine Kinase 39 U/L (30-135); Estimated Glomerular Filt Rate > 60 mL/min (>60); Globulin 3.4 g/dL (1.7-4.1); Glucose 123 mg/dL (70-100); HEMOLYSIS < 15 (0-50); Potassium 3.7 mmol/L (3.4-5.1); Sodium 137 mmol/L (137-145); Total Protein 7.2 g/dL (6.3-8.2)
[2022-07-02 14:58] LABS: Troponin I < 0.012 ng/mL (0.01-0.034)
[2022-07-02 15:15] LABS: Anisocytosis 1+
== END 2022-07-02 15:51 | disposition home or self-care (01) ==
PROVIDERS: Emergency Provider Emergency Medicine; PCP Nurse Practitioner
DX: Z51.11 Encounter for antineoplastic chemotherapy (principal); R20.8 Other disturbances of skin sensation; T45.1X5A Adverse effect of antineoplastic and immunosuppressive drugs, initial encounter; I49.3 Ventricular premature depolarization; C18.2 Malignant neoplasm of ascending colon; Z90.49 Acquired absence of other specified parts of digestive tract
CPT/HCPCS: 36591; 80053; 82378; 82550; 84484; 85025; 93005; 96367; 96368; 96375; 96376; 96413; 99214; 99283; J0640; J1100; J1200; J1453; J1720; J2405; J9263

== ENCOUNTER → 2022-08-10 10:00 | Outpatient (CLI) | payer OTHER, SELFPAY ==
[2022-08-10 10:57] LABS: COVID19 -Nasal RAPID Negative (Negative)
== END ==
PROVIDERS: Radiology Diagnostic Radiology; PCP Nurse Practitioner; Referring Provider Internal Medicine Cardiovascular Disease; Visit Provider Internal Medicine Cardiovascular Disease
DX: Z20.822 Contact with and (suspected) exposure to COVID-19 (principal)
CPT/HCPCS: 36415; 87635; C9803

== ENCOUNTER → 2022-08-13 08:01 | Outpatient (CLI) | payer OTHER, SELFPAY ==
--- NOTE | 2022-08-13 08:03 | DI.ECHO.S_ITS ---
[facility]---------+ [facility] +---------+ : : [address] : [address] : : : : [id number] : : : : Phone: [phone]+ Echocardiogram Report + + :Name: RUBA ESPARZA Study Date: 08/13/2022 Height: 65 in : :[facility] ReadingLocation: Weight: 127 lb : : Gender: Female BSA: 1.6 m2 : :: 1990 Age: 32 yrs BP: 110/72 mmHg: :Reason For Study: Premature Ventricular Contractions : :Ordering Physician: AILYN, : :LILIYA Performed By: Yamilet Dixon : :Referring: LILIYA ALVES : + + Interpretation Summary 1) Normal left ventricular thickness, size, wall motion, and systolic function (EF 65-70%). 2) Normal right ventricular size and function. 3) No significant valvular abnormalities. 4) No prior Echo available for comparison. Procedure: A two-dimensional transthoracic echocardiogram with color flow and Doppler was performed. The patient was in sinus rhythm with heart rates between 73-80 bpm during the exam. Left Ventricle: The left ventricle is normal in size and wall thickness. The ejection fraction is estimated to be 65-70%. Left ventricular systolic function appears normal without focal wall motion abnormalities. Diastolic parameters suggest probable normal left ventricular diastolic function and normal filling pressures. Right Ventricle: The right ventricle is normal size. The right ventricular systolic function is normal. Atria: The left atrial size is normal. The right atrium is normal in size. There is no Doppler evidence for an interatrial shunt. Mitral Valve: The mitral valve is normal in structure and function. There is trace mitral regurgitation. Aortic Valve: The aortic valve is normal in structure and function. There is no aortic valve stenosis. There is trace aortic regurgitation. Tricuspid Valve: The tricuspid valve is normal in structure and function. There is a trace or physiologic amount of tricuspid regurgitation. Pulmonary artery pressures cannot be estimated because of the lack of a measurable TR jet velocity. Pulmonic Valve: The pulmonic valve leaflets are thin and pliable; valve motion is normal. There is no pulmonic valvular regurgitation. Great Vessels: The aortic root is not well visualized but is probably normal size. The dimensions of the ascending aorta are normal. The IVC is dilated (diameter is greater than 2.1 cm) yet it collapses greater than 50% with a sniff. This suggests a right atrial pressure of 8 mm Hg. Pericardium/ Pleura There is no pericardial effusion. There is no pleural effusion. MMode/2D Measurements & Calculations LVIDd: 3.8 cm LVOT diam: 1.8 cm LVIDs: 2.4 cm Ao root diam: 2.8 cm FS: 36.5 % asc Aorta Diam: 2.8 cm EPSS: 0.19 cm IVSd: 0.71 cm LVPWd: 0.68 cm LV maurer. diameter/BSA (cm/m^2): 2.3 LV sys. diameter/BSA (cm/m^2): 1.5 LA A2 area: 10.6 cm2 RA long axis: 4.3 cm LA A4 area: 13.4 cm2 RA area: 13.8 cm2 LA length (vol): 4.3 cm RA vol: 37.8 ml LA vol: 28.1 ml RA : 23.2 ml/m2 LA vol index: 17.2 ml/m2 IVC diam: 2.2 cm RVD1 (basal): 3.5 cm TAPSE: 3.6 cm Doppler Measurements & Calculations Ao V2 max: 126.5 cm/sec LVOT Max Ramos: 97.8 cm/sec Ao V2 mean: 81.1 cm/sec LV V1 max P.8 mmHg Ao max P.4 mmHg LV V1 VTI: 20.4 cm Ao mean P.0 mmHg RORY(I,D): 2.2 cm2 Ao V2 VTI: 24.5 cm RORY(V,D): 2.1 cm2 sev ratio: 0.83 RORY indexed to BSA (cm^2/m^2): 1.4 MV E max ramos: 105.0 cm/sec TR max ramos: 163.2 cm/sec MV A max ramos: 74.5 cm/sec TR max P.9 mmHg MV E/A: 1.4 PA V2 max: 81.5 cm/sec Med Peak E' Ramos: 12.3 cm/sec PA V2 mean: 62.0 cm/sec E/E' med: 8.5 PA mean P.6 mmHg Lat Peak E' Ramos: 10.7 cm/sec E/E' lat: 9.8 E/e' average: 9.2 MV dec time: 0.21 sec MVA(VTI): 1.8 cm2 MV V2 mean: 64.2 cm/sec SV(LVOT): 54.9 ml MV mean P.0 mmHg MV V2 VTI: 30.3 cm Reading Physician:12:30 PM
--- NOTE | 2022-08-13 20:18 | DI.NM.S_ITS ---
DATE OF SERVICE: 08/13/2022 PROCEDURE PERFORMED: Exercise treadmill stress test without imaging. ORDERING PROVIDER: Dr. Navin Alves. INDICATIONS: The patient is a 32-year-old female with a history of colon cancer, palpitations, and frequent PVCs with recent dyspnea. FINDINGS: 1. The patient was able to exercise for 9 minutes, 53 seconds on a standard Jg protocol, suggesting average exercise capacity with an AYANA of -3%, achieving 9.9 METs. 2. She had a mildly accelerated heart rate response to exercise with a resting heart rate of 98 BPM, increasing to 125 BPM after 3 minutes of exercise and achieving a maximum of 182 BPM (97% of her predicted maximum). She had a normal blood pressure response to exercise. 3. She had no chest discomfort or other anginal symptoms. 4. Her resting ECG shows a probable ectopic atrial rhythm with nonspecific anterior T-wave inversions but normal ST segments. With stress, there were no significant ST-segment shifts or change in her T-wave inversions. She had no arrhythmias with stress but developed frequent PVCs in recovery, briefly in a bigeminal and trigeminal pattern, but no complex ventricular ectopy. IMPRESSION: 1. Normal exercise treadmill study for ischemia. 2. Average exercise capacity with a mildly accentuated heart rate response to exercise. She had a probable ectopic atrial rhythm at rest but no concerning arrhythmias with stress although had frequent PVCs in recovery, at times, in a bigeminal pattern but no complex ventricular ectopy. Sydney Brown - Radha/crow doc#: [id number]/job#: [id number] dd: 08/13/2022 16:19:00 dt: 08/13/2022 18:33:00 DICTATING /COPIES TO: Kash Valdez MD COPIES MNE: MELLO;
== END ==
PROVIDERS: PCP Nurse Practitioner; Referring Provider Internal Medicine Cardiovascular Disease; Visit Provider Internal Medicine Cardiovascular Disease
DX: C18.9 Malignant neoplasm of colon, unspecified (principal); I49.3 Ventricular premature depolarization; R00.2 Palpitations; R06.00 Dyspnea, unspecified
CPT/HCPCS: 93017; 93306